=== PATIENT | male | born 1965 | race Caucasian/White ===

== ENCOUNTER 2016-12-27 22:09 | Emergency (ER) | payer SELFPAY ==
[~2016-12-27] VITALS: Ht 167.6 cm; Wt 158.8 kg
[~2016-12-27 22:09] MED LIST: ATEN25TA PO; LEVO175T5 PO; PROVENTIL HFA6.7 GM IH; RANI150T2 PO; SIMV10TA3 PO
[2016-12-27 22:20] VITALS: BP 145/85
[2016-12-27] MEDS ORDERED: traMADol 50 MG TABLET PO ONE (23:30)
[2016-12-27] MEDS ORDERED: IBUPROFEN 600 MG TABLET. PO ONE (23:30)
[2016-12-27] MEDS ORDERED: TRAM-48 PO (23:52)
[2016-12-27] MEDS ORDERED: IBUP-1007 PO (23:52)
--- NOTE | 2016-12-27 23:52 | PHYS DOC ---
Past Medical History Past Medical History: Anxiety, Bronchitis, GERD, High Cholesterol, Hypertension , Hypothyroid, Other Additional Past Medical Histor: Thyroid tumor Past Surgical History: Tonsillectomy, Other Additional Past Surgical Histo: thyroidectomy, left shoulder Alcohol Use: None Drug Use: None Adult General Chief Complaint Chief Complaint: UPPER EXTREMITY INJURY HPI HPI Patient is a 51 year old who presents here today complaining of pain to his right wrist and ankle after tripping over a hole he reports he rolled his ankle. This occurred yesterday. Patient denies any fevers shakes chills nausea vomiting diarrhea. Patient has any head trauma or loss of consciousness. Patient denies any other symptomatology or discomfort. Patient reports that he has been weightbearing. Patient has no history of hypertension or diabetes. Patient's x-ray of his right ankle and wrist were negative for acute fracture. Patient's physical exam was significant for tenderness to palpation to his right ankle as well as his right wrist. There is no deformity noted. Assessment and plan 51-year-old gentleman who has fallen down and injured his ankle and wrist. Patient has no acute fracture noted on x-ray. Patient was discharged home in stable condition. Patient be given ibuprofen to help with his pain. Patient is instructed to follow-up with her primary care physician for further management of this discomfort. Review of Systems Review of Systems Review of symptoms Constitutional: Denies fever or chills [] Eyes: Denies change in visual acuity, redness, or eye pain [] All other review systems are negative except as documented in the history of present illness portion. Physical exam: Constitutional: Well developed, well nourished, no acute distress, non-toxic appearance. [] HENT: Normocephalic, atraumatic, Eyes: conjunctiva normal, no discharge. [] Neck: Normal range of motion, no tenderness, supple, no stridor. [] Cardiovascular:Heart rate regular rhythm, Lungs & Thorax: Bilateral breath sounds clear to auscultation [] Abdomen: Bowel sounds normal, soft, no tenderness, no masses, no pulsatile masses. [] Skin: Warm, dry, Back: No tenderness, Extremities: See above. Neurologic: Alert and oriented X 3, normal motor function, normal sensory function, no focal deficits noted. [] Psychologic: Affect normal, judgement normal, mood normal. [] Current Medications Current Medications Current Medications Medications (Trade) Dose Ordered Sig/Jessy Start Time Stop Time Status Last Admin Dose Admin Ibuprofen (Motrin) 600 mg 1X ONCE 12/27/16 23:30 12/27/16 23:31 DC 12/28/16 00:01 600 MG Tramadol HCl (Ultram) 50 mg 1X ONCE 12/27/16 23:30 12/27/16 23:31 DC 12/28/16 00:01 50 MG Allergies Allergies Allergies Coded Allergies Type Severity Reaction Last Updated Verified meperidine Allergy Severe Shortness of Air 10/12/14 No Current Patient Data Vital Signs Vital Signs Date Time Temp Pulse Resp B/P (MAP) Pulse Ox O2 Delivery O2 Flow Rate FiO2 12/28/16 00:01 18 96 Room Air 12/27/16 22:20 98.4 97 98.4 EKG EKG [] Radiology/Procedures Radiology/Procedures [] Course & Med Decision Making Course & Med Decision Making Pertinent Labs and Imaging studies reviewed. (See chart for details) [] Dragon Disclaimer Dragon Disclaimer This electronic medical record was generated, in whole or in part, using a voice recognition dictation system. Departure Departure Impression: Primary Impression: Fall Additional Impressions: Wrist sprain Shoulder sprain Right ankle sprain Anxiety Disposition: HOME, SELF-CARE Condition: IMPROVED Referrals: NO PCP (PCP) Patient Instructions: Ankle Sprain, Shoulder Pain, Wrist Sprain with Rehab- [facility] Tramadol Hcl (ULTRAM) 50 Mg Tablet 1 TAB PO Q6HRS, #14 TAB Prov: AIDE CROOK MD 12/27/16 Ibuprofen (IBUPROFEN) 600 Mg Tablet 600 MG PO PRN Q6HRS Y for PAIN, #20 TAB Prov: AIDE CROOK MD 12/27/16 Problem Qualifiers Primary Impression: Fall Encounter type: initial encounter Qualified Codes: W19.XXXA - Unspecified fall, initial encounter Additional Impressions: Wrist sprain Encounter type: initial encounter Laterality: right Qualified Codes: S63.501A - Unspecified sprain of right wrist, initial encounter Shoulder sprain Encounter type: initial encounter Shoulder sprain type: unspecified sprain Laterality: right Qualified Codes: S43.401A - Unspecified sprain of right shoulder joint, initial encounter Right ankle sprain Encounter type: initial encounter Involved ligament of ankle: unspecified ligament Qualified Codes: S93.401A - Sprain of unspecified ligament of right ankle, initial encounter AIDE CROOK MD Dec 27, 2016 23:52
--- NOTE | 2016-12-28 08:37 | RAD ---
EXAM: Right wrist 3 views. HISTORY: Fall with right wrist pain. COMPARISON: None. FINDINGS: There is soft tissue swelling along the dorsum of the metacarpals. No fractures are identified. Alignment is maintained. Triscaphe and 1st carpometacarpal osteoarthritis are mild. IMPRESSION: 1. Soft tissue swelling. No fracture. Mild osteoarthritis as above.
--- NOTE | 2016-12-28 08:39 | RAD ---
EXAM: Right ankle 3 views. HISTORY: Right ankle pain. Fall. COMPARISON: None. FINDINGS: Three views of the right ankle are obtained. There is soft tissue swelling medially and laterally. There is mild medial tilt of the talus. No acute fractures are seen. A chronic healed fracture is suspected along the distal tibia. There is nonuniform joint space narrowing at the mortise medially, with moderate osteophytes at the tibiotalar articulation on the lateral projection. There are moderate plantar and posterior calcaneal spurs. Soft tissue swelling is noted medially and laterally. An ossicle at the tip of the lateral malleolus is consistent with a chronic avulsion injury. IMPRESSION: 1. No acute fracture. Soft tissue swelling indicates a soft tissue injury. 2. Moderate tibiotalar osteoarthritis. 3. Mild medial tilt of the talus. Correlate to injury or stability.
--- NOTE | 2016-12-28 08:41 | RAD ---
EXAM: Right shoulder 3 views. HISTORY: Right shoulder pain after injury. COMPARISON: 03/31/2015. FINDINGS: There is a chronic healed fracture of the right distal clavicle. There are no acute fractures. Acromioclavicular osteoarthritis is moderate to severe. Inferiorly directed clavicular spurs measure up to 5 mm. Glenohumeral joint spaces and alignment appear maintained. Prominence of the right peritracheal stripe may represent the azygos vein. This is not clearly changed since the prior chest radiograph. IMPRESSION: 1. No acute fracture. 2. Moderate to severe acromioclavicular osteoarthritis with inferiorly directed spurring. Correlate for impingement.
== END 2016-12-28 00:10 | disposition home or self-care (01) ==
LOC: ER 22:09
DX: S63.501A Unspecified sprain of right wrist, initial encounter (principal); S43.401A Unspecified sprain of right shoulder joint, initial encounter; S93.401A Sprain of unspecified ligament of right ankle, initial encounter; F41.9 Anxiety disorder, unspecified; K21.9 Gastro-esophageal reflux disease without esophagitis; E78.00 Pure hypercholesterolemia, unspecified; I10 Essential (primary) hypertension; E89.0 Postprocedural hypothyroidism; Z88.8 Allergy status to other drugs, medicaments and biological substances; W19.XXXA Unspecified fall, initial encounter; Y93.89 Activity, other specified; Y92.89 Other specified places as the place of occurrence of the external cause; Y99.8 Other external cause status
CPT/HCPCS: 73030; 73110; 73610; 99284

== ENCOUNTER 2018-11-18 01:28 | Observation (INO) | payer SELFPAY ==
[~2018-11-18] VITALS: Ht 167.6 cm; Wt 189.1 kg
[~2018-11-18 01:28] MED LIST changes: +ALBU2.5V8 IH; +IBUP-1007 PO; -PROVENTIL HFA6.7 GM IH; +TRAM-48 PO
[2018-11-18] MEDS ORDERED: ASPIRIN 325 MG TABLET PO ONE (01:45)
[2018-11-18 01:54] LABS: BASO # 0.1 x10^3/uL (0.0-0.2); BASO % 1 % (0-3); EOS # 0.6 x10^3/uL (0.0-0.7); EOS % 7 % (0-3); HEMOGLOBIN 13.9 g/dL (13.0-17.5); LYMPH % 25 % (24-48); MEAN CORPUSCULAR HEMOGLOBIN 28 pg (25-35); MEAN CORPUSCULAR HGB CONC 33 g/dL (31-37); MEAN CORPUSCULAR VOLUME 85 fL (79-100); MONO # 0.5 x10^3/uL (0.0-1.1); MONO % 6 % (0-9); NEUT # 4.9 x10^3uL (1.8-7.7); NEUT % 61 % (31-73); PLATELET COUNT 317 x10^3/uL (140-400); RED BLOOD COUNT 4.94 x10^6/uL (4.30-5.70); RED CELL DISTRIBUTION WIDTH 15.7 % (11.5-14.5); WHITE BLOOD COUNT 7.9 x10^3/uL (4.0-11.0)
[2018-11-18 02:05] LABS: PROTHROMBIN TIME PATIENT 12.2 SEC (11.7-14.0)
[2018-11-18 02:08] LABS: CALCIUM 9.3 mg/dL (8.5-10.1); CREATININE 1.1 mg/dL (0.7-1.3); GFR 70.6; POTASSIUM 3.7 mmol/L (3.5-5.1)
[2018-11-18 02:14] LABS: ALBUMIN 3.3 g/dL (3.4-5.0); ALBUMIN/GLOBULIN RATIO 0.8 (1.0-1.7); TOTAL BILIRUBIN 0.2 mg/dL (0.2-1.0); TOTAL PROTEIN 7.7 g/dL (6.4-8.2)
--- NOTE | 2018-11-18 02:30 | RAD ---
Examination: Right Lower Extremity Venous Doppler Ultrasound History: Right calf pain, redness Comparison: None Procedure: Oro scale, color flow 2D and spectal waveform analysis images are obtained with and without compression in the area of the common femoral vein, superficial femoral vein - femoral vein junction, main femoral vein (superficial femoral vein) and popliteal vein. Veins of the proximal calf are also imaged. Findings: There is normal duplex flow, color flow and compressibility of all visualized vein segments. No evidence of deep venous thrombus is present. A 5.5 cm lymph node identified in the proximal right thigh region. Impression: 1. No evidence of DVT in the right lower extremity. 2. Enlarged right proximal thigh/inguinal lymph node. Electronically signed by: Dani Hayes MD (11/18/2018 2:27 AM) [facility]
[2018-11-18] MEDS ORDERED: IOHEXOL 350 MG/ML 100 ML VIAL. IV ONE (03:00)
[2018-11-18] MEDS ORDERED: CONTRAST GIVEN. MC PRN (03:15)
--- NOTE | 2018-11-18 03:27 | RAD ---
Examination: CT angiography chest HISTORY: History of chest pain, tachycardia COMPARISON: None available technique: Axial CT angiographic images of chest were performed with IV contrast. Coronal and sagittal reformats performed Exposure: One or more of the following individualized dose reduction techniques were utilized for this examination: 1. Automated exposure control 2. Adjustment of the mA and/or kV according to patient size 3. Use of iterative reconstruction technique FINDINGS: The heart size grossly appears unremarkable. Coronary artery calcifications identified. The caliber of the aorta appears unremarkable. There is not enough contrast within the pulmonary artery and its branches for evaluation of pulmonary embolism. Small calcified hilar lymph nodes identified. There is a 9 mm nodule identified in the right upper lobe of the lung abutting the pleura.. Small 1 cm focal opacity identified in the right lower lobe of the lung and a focal opacity identified in the left lingula of the lung measuring 6 mm could be atelectasis or infiltrate and nodules. No evidence of pleural effusion or pneumothorax Examination is very limited due to patient body habitus Decreased attenuation noted throughout the liver likely hepatic steatosis. The visualized spleen, adrenals grossly appears unremarkable Moderate degenerative changes thoracic spine. IMPRESSION: 1. Examination is nondiagnostic for pulmonary embolism as there is not enough contrast within the pulmonary artery and its branches. 2. Coronary artery calcifications. 3. 9 mm nodule identified in the right upper lobe of the lung. A 1 cm opacity identified in the right lower lobe of the lung and a focal opacity identified in the left lingula of the lung measuring 6 mm could be atelectasis or infiltrate or nodules. Follow-up examination is recommended per Fleischner Society guidelines in 3 months. Electronically signed by: Dani Hayes MD (11/18/2018 3:24 AM) [place] [id number]
[2018-11-18] MEDS ORDERED: ADENOSINE 6 MG/2 ML VIAL. IV ONE (03:30)
[2018-11-18] MEDS ORDERED: fentaNYL PF VIAL 100 MCG/2 ML VIAL IV PRN ×2 (04:15→04:30)
[2018-11-18] MEDS ORDERED: ONDANSETRON PF 4 MG/2 ML VIAL. IV PRN (04:15)
--- NOTE | 2018-11-18 04:15 | PHYS DOC ---
Past Medical History Past Medical History: Anxiety, Bronchitis, GERD, High Cholesterol, Hypertension, Hypothyroid, Other Additional Past Medical Histor: Thyroid tumor Past Surgical History: Tonsillectomy, Other Additional Past Surgical Histo: thyroidectomy, left shoulder Alcohol Use: None Drug Use: None Adult General Chief Complaint Chief Complaint: RAPID HEART RATE HPI HPI Patient is a 53 year old [f__sex] who presents with [] Review of Systems Review of Systems Constitutional: Denies fever or chills [] Eyes: Denies change in visual acuity, redness, or eye pain [] HENT: Denies nasal congestion or sore throat [] Respiratory: Denies cough or shortness of breath [] Cardiovascular: No additional information not addressed in HPI [] GI: Denies abdominal pain, nausea, vomiting, bloody stools or diarrhea [] : Denies dysuria or hematuria [] Musculoskeletal: Denies back pain or joint pain [] Integument: Denies rash or skin lesions [] Neurologic: Denies headache, focal weakness or sensory changes [] Endocrine: Denies polyuria or polydipsia [] All other systems were reviewed and found to be within normal limits, except as documented in this note. Current Medications Current Medications Current Medications Medications (Trade) Dose Ordered Sig/Jessy Start Time Stop Time Status Last Admin Dose Admin Adenosine (Adenocard) 6 mg 1X ONCE 11/18/18 03:30 11/18/18 03:31 DC 11/18/18 03:41 6 MG Aspirin (Michele Aspirin) 325 mg 1X ONCE 11/18/18 01:45 11/18/18 01:46 DC 11/18/18 02:16 325 MG Info (CONTRAST GIVEN -- Rx MONITORING) 1 each PRN DAILY PRN 11/18/18 03:15 11/20/18 03:14 Iohexol (Omnipaque 350 Mg/ml) 100 ml 1X ONCE 11/18/18 03:00 11/18/18 03:13 DC 11/18/18 03:09 100 ML Lorazepam (Ativan) 0.5 mg 1X ONCE 11/18/18 02:45 11/18/18 02:46 DC 11/18/18 02:41 0.5 MG Allergies Allergies Allergies Coded Allergies Type Severity Reaction Last Updated Verified meperidine Allergy Severe Shortness of Air 10/12/14 No Physical Exam Physical Exam Constitutional: Well developed, well nourished, no acute distress, non-toxic appearance. [] HENT: Normocephalic, atraumatic, bilateral external ears normal, oropharynx moist, no oral exudates, nose normal. [] Eyes: PERRLA, EOMI, conjunctiva normal, no discharge. [] Neck: Normal range of motion, no tenderness, supple, no stridor. [] Cardiovascular:Heart rate regular rhythm, no murmur [] Lungs & Thorax: Bilateral breath sounds clear to auscultation [] Abdomen: Bowel sounds normal, soft, no tenderness, no masses, no pulsatile masses. [] Skin: Warm, dry, no erythema, no rash. [] Back: No tenderness, no CVA tenderness. [] Extremities: No tenderness, no cyanosis, no clubbing, ROM intact, no edema. [] Neurologic: Alert and oriented X 3, normal motor function, normal sensory function, no focal deficits noted. [] Psychologic: Affect normal, judgement normal, mood normal. [] Current Patient Data Vital Signs Vital Signs Date Time Temp Pulse Resp B/P (MAP) Pulse Ox O2 Delivery O2 Flow Rate FiO2 11/18/18 03:34 152 24 158/73 (101) 95 Room Air 11/18/18 01:35 98.6 98.6 Lab Values Laboratory Tests Test 11/18/18 01:38 11/18/18 01:52 White Blood Count 7.9 x10^3/uL (4.0-11.0) Red Blood Count 4.94 x10^6/uL (4.30-5.70) Hemoglobin 13.9 g/dL (13.0-17.5) Hematocrit 42.0 % (39.0-53.0) Mean Corpuscular Volume 85 fL (79-100) Mean Corpuscular Hemoglobin 28 pg (25-35) Mean Corpuscular Hemoglobin Concent 33 g/dL (31-37) Red Cell Distribution Width 15.7 % (11.5-14.5) H Platelet Count 317 x10^3/uL (140-400) Neutrophils (%) (Auto) 61 % (31-73) Lymphocytes (%) (Auto) 25 % (24-48) Monocytes (%) (Auto) 6 % (0-9) Eosinophils (%) (Auto) 7 % (0-3) H Basophils (%) (Auto) 1 % (0-3) Neutrophils # (Auto) 4.9 x10^3uL (1.8-7.7) Lymphocytes # (Auto) 2.0 x10^3/uL (1.0-4.8) Monocytes # (Auto) 0.5 x10^3/uL (0.0-1.1) Eosinophils # (Auto) 0.6 x10^3/uL (0.0-0.7) Basophils # (Auto) 0.1 x10^3/uL (0.0-0.2) Prothrombin Time 12.2 SEC (11.7-14.0) Prothrombin Time INR 0.9 (0.8-1.1) Sodium Level 138 mmol/L (136-145) Potassium Level 3.7 mmol/L (3.5-5.1) Chloride Level 101 mmol/L (98-107) Carbon Dioxide Level 32 mmol/L (21-32) Anion Gap 5 (6-14) L Blood Urea Nitrogen 10 mg/dL (8-26) Creatinine 1.1 mg/dL (0.7-1.3) Estimated GFR (Cockcroft-Gault) 70.6 BUN/Creatinine Ratio 9 (6-20) Glucose Level 151 mg/dL (70-99) H Calcium Level 9.3 mg/dL (8.5-10.1) Magnesium Level 2.0 mg/dL (1.8-2.4) Total Bilirubin 0.2 mg/dL (0.2-1.0) Aspartate Amino Transferase (AST) 23 U/L (15-37) Alanine Aminotransferase (ALT) 36 U/L (16-63) Alkaline Phosphatase 80 U/L (46-116) Creatine Kinase 163 U/L (39-308) Creatine Kinase MB (Mass) 1.6 ng/mL (0.0-3.6) Creatine Kinase MB Relative Index 1.0 % (0-4) Troponin I Quantitative < 0.017 ng/mL (0.000-0.055) SW-Ugv-I-Type Natriuretic Peptide 120 pg/mL (0-124) Total Protein 7.7 g/dL (6.4-8.2) Albumin 3.3 g/dL (3.4-5.0) L Albumin/Globulin Ratio 0.8 (1.0-1.7) L Lipase 197 U/L (73-393) Lactic Acid Level 1.9 mmol/L (0.4-2.0) Laboratory Tests 11/18/18 01:38 Laboratory Tests 11/18/18 01:38 EKG EKG @0136 SVT at 153bpm NO ST elevation, compared to prior EKG from 03/31/15 which noted sinus tachycardia at 106bpm, Otherwise without acute change. @0348 Continuos monitoring after administration of 6mg of Adenosine which noted SVT with subsequent pause and reset to sinus tachycardia, NO ST elevation @ 0348 Sinus tachycardia at 114bpm, NO ST elevation, Q wave in III Radiology/Procedures Radiology/Procedures PROCEDURE: VENOUS LOWER EXTREMITY RIGHT Examination: Right Lower Extremity Venous Doppler Ultrasound History: Right calf pain, redness Comparison: None Procedure: Oro scale, color flow 2D and spectal waveform analysis images are obtained with and without compression in the area of the common femoral vein, superficial femoral vein - femoral vein junction, main femoral vein (superficial femoral vein) and popliteal vein. Veins of the proximal calf are also imaged. Findings: There is normal duplex flow, color flow and compressibility of all visualized vein segments. No evidence of deep venous thrombus is present. A 5.5 cm lymph node identified in the proximal right thigh region. Impression: 1. No evidence of DVT in the right lower extremity. 2. Enlarged right proximal thigh/inguinal lymph node. Electronically signed by: Dani Hayes MD (11/18/2018 2:27 AM) [facility] PROCEDURE: CT ANGIOGRAPHY CHEST Examination: CT angiography chest HISTORY: History of chest pain, tachycardia COMPARISON: None available technique: Axial CT angiographic images of chest were performed with IV contrast. Coronal and sagittal reformats performed Exposure: One or more of the following individualized dose reduction techniques were utilized for this examination: 1. Automated exposure control 2. Adjustment of the mA and/or kV according to patient size 3. Use of iterative reconstruction technique FINDINGS: The heart size grossly appears unremarkable. Coronary artery calcifications identified. The caliber of the aorta appears unremarkable. There is not enough contrast within the pulmonary artery and its branches for evaluation of pulmonary embolism. Small calcified hilar lymph nodes identified. There is a 9 mm nodule identified in the right upper lobe of the lung abutting the pleura.. Small 1 cm focal opacity identified in the right lower lobe of the lung and a focal opacity identified in the left lingula of the lung measuring 6 mm could be atelectasis or infiltrate and nodules. No evidence of pleural effusion or pneumothorax Examination is very limited due to patient body habitus Decreased attenuation noted throughout the liver likely hepatic steatosis. The visualized spleen, adrenals grossly appears unremarkable Moderate degenerative changes thoracic spine. IMPRESSION: 1. Examination is nondiagnostic for pulmonary embolism as there is not enough contrast within the pulmonary artery and its branches. 2. Coronary artery calcifications. 3. 9 mm nodule identified in the right upper lobe of the lung. A 1 cm opacity identified in the right lower lobe of the lung and a focal opacity identified in the left lingula of the lung measuring 6 mm could be atelectasis or infiltrate or nodules. Follow-up examination is recommended per Fleischner Society guidelines in 3 months. Electronically signed by: Dani Hayes MD (11/18/2018 3:24 AM) [facility] Course & Med Decision Making Course & Med Decision Making Pertinent Labs and Imaging studies reviewed. (See chart for details) [] Dragon Disclaimer Dragon Disclaimer This electronic medical record was generated, in whole or in part, using a voice recognition dictation system. Departure Departure Impression: Primary Impression: Chest pain Additional Impressions: SVT (supraventricular tachycardia) Pulmonary nodule Disposition: ADMITTED INPATIENT Admitting Physician: Jay Ferreira Condition: GUARDED Referrals: NO PCP (PCP) Critical Care Time Critical care time was 30 minutes which includes time at bedside, spent in discussion of patient's care with specialists and/or family members, with interpretation of laboratory and/or radiological studies and is exclusive of procedures. Problem Qualifiers Primary Impression: Chest pain Chest pain type: unspecified Qualified Codes: R07.9 - Chest pain, unspecified JUAN DANIEL CARTER DO November 18, 2018 04:15
[2018-11-18 04:55] VITALS: BP 132/97
[2018-11-18 05:03] LABS: FREE T4 0.79 ng/dL (0.76-1.46); THYROID STIM HORMONE (TSH) 9.032 uIU/mL (0.358-3.74)
[2018-11-18] MEDS ORDERED: SIMV20TA3 PO (05:37)
[2018-11-18] MEDS ORDERED: LEVO75TA5 PO (05:37)
[2018-11-18] MEDS ORDERED: FURO20TA3 PO (05:37)
--- NOTE | 2018-11-18 06:55 | EKG ---
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
--- NOTE | 2018-11-18 06:59 | EKG ---
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
--- NOTE | 2018-11-18 07:14 | NUR ---
Patient arrived to floor around 0437. VS stable, Assessment complete. patient resting comfortably on RA, no complaints of pain. Orientated pt to unit. Bed in low, locked position, call light with in reach.
[2018-11-18 07:39] VITALS: BP 137/72
[2018-11-18] MEDS ORDERED: PERFLUTREN PROTEIN-A MICROSPHR 0.22 MG/ML 3 ML VIAL. IV ONE (09:18)
--- NOTE | 2018-11-18 10:08 | PDOC2 ---
CARDIAC CONSULT DATE OF CONSULT Date of Consult DATE: 11/18/18 TIME: 10:04 REASON FOR CONSULT Reason for Consult: Chest pain, SVT REFERRING PHYSICIAN Referring Physician: Ish SOURCE Source: Chart review, Patient HISTORY OF PRESENT ILLNESS HISTORY OF PRESENT ILLNESS This is a pleasant 53 yo male admitted for complains of fast HR. Reports that he was sleeping last night when his fast HR woke him up. He was not diaphoretic but was feeling nauseated, has some wheeze and mild SOA. Denies any chest pain. Reports no past hx of arrhythmias or CAD. He just lost his health insurance, works at [employer] and could not stand long enough to work due to back pain and trying to apply for disability. He has DM, HTN, HLP. There was a suspicion for BENTON but he has never been tested accdg to him. Denies any frequent dizzness or passing out and as far as this arrhythmia this is the first time he has felt this palpitations. He has been taking his medications regularly for the latter. PAST MEDICAL HISTORY Cardiovascular: HTN, Hyperlipidemia Pulmonary: Asthma, Other (BENTON) CENTRAL NERVOUS SYSTEM: Other (No pertinent history) GI: GERD, Other (hiatal hernia) Heme/Onc: No pertinent hx Hepatobiliary: No pertinent hx, Cholelithiasis Psych: Anxiety Musculoskeletal: Osteoarthritis, Other (morbid obesity) Rheumatologic: No pertinent hx Infectious disease: No pertinent hx ENT: No pertinent hx Renal/: Prostate Ca., Urinary Incontinence Endocrine: Diabetes (2), Hypothyroidism Dermatology: Other (venous dermatitis) PAST SURGICAL HISTORY Past Surgical History: Arthroscopy (left shoulder), Cholecystectomy, Tonsillectomy, Other (thyroidectomy) FAMILY HISTORY Family History noncontributory to CV SOCIAL HISTORY Smoke: Quit (18 yrs ago) ALCOHOL: none Drugs: None Lives: Alone CURRENT MEDICATIONS CURRENT MEDICATIONS Current Medications Medications (Trade) Dose Ordered Sig/Jessy Route PRN Reason Start Time Stop Time Status Last Admin Dose Admin Aspirin (Michele Aspirin) 325 mg 1X ONCE PO 11/18/18 01:45 11/18/18 01:46 DC 11/18/18 02:16 Lorazepam (Ativan) 0.5 mg 1X ONCE IV 11/18/18 02:45 11/18/18 02:46 DC 11/18/18 02:41 Iohexol (Omnipaque 350 Mg/ml) 100 ml 1X ONCE IV 11/18/18 03:00 11/18/18 03:13 DC 11/18/18 03:09 Adenosine (Adenocard) 6 mg 1X ONCE IV 11/18/18 03:30 11/18/18 03:31 DC 11/18/18 03:41 ALLERGIES ALLERGIES: Coded Allergies: meperidine (Unverified Allergy, Severe, Shortness of Air, 10/12/14) ROS Review of System 14 point ROS evaluated with pertinent positives noted per HPI PHYSICAL EXAM General: Alert, Oriented X3, Cooperative, No acute distress HEENT: Atraumatic, Mucous membr. moist/pink Lungs: Clear to auscultation, Other (faint upper expiratory wheeze) Heart: Regular rate (SR), Normal S1, Normal S2, Other (2/6 systolic murmur to KARTHIK border) Abdomen: Soft, No tenderness, Other (obese) Extremities: No cyanosis, Other (1+ bilateral LE pitting edema) Skin: Other (generalized scratches to bilateral calf, venous insufficiency) Neuro: Normal speech, Sensation intact Psych/Mental Status: Mental status NL, Mood NL MUSCULOSKELETAL: Osteoarthritic changes both hands VITALS VITALS Vital Signs Date Time Temp Pulse Resp B/P (MAP) Pulse Ox O2 Delivery O2 Flow Rate FiO2 11/18/18 08:00 Room Air 11/18/18 07:39 97.5 89 18 137/72 (93) 94 97.5 LABS Lab: Laboratory Tests Test 11/18/18 01:38 11/18/18 01:52 11/18/18 07:15 White Blood Count 7.9 x10^3/uL (4.0-11.0) Red Blood Count 4.94 x10^6/uL (4.30-5.70) Hemoglobin 13.9 g/dL (13.0-17.5) Hematocrit 42.0 % (39.0-53.0) Mean Corpuscular Volume 85 fL (79-100) Mean Corpuscular Hemoglobin 28 pg (25-35) Mean Corpuscular Hemoglobin Concent 33 g/dL (31-37) Red Cell Distribution Width 15.7 % (11.5-14.5) Platelet Count 317 x10^3/uL (140-400) Neutrophils (%) (Auto) 61 % (31-73) Lymphocytes (%) (Auto) 25 % (24-48) Monocytes (%) (Auto) 6 % (0-9) Eosinophils (%) (Auto) 7 % (0-3) Basophils (%) (Auto) 1 % (0-3) Neutrophils # (Auto) 4.9 x10^3uL (1.8-7.7) Lymphocytes # (Auto) 2.0 x10^3/uL (1.0-4.8) Monocytes # (Auto) 0.5 x10^3/uL (0.0-1.1) Eosinophils # (Auto) 0.6 x10^3/uL (0.0-0.7) Basophils # (Auto) 0.1 x10^3/uL (0.0-0.2) Prothrombin Time 12.2 SEC (11.7-14.0) Prothromb Time International Ratio 0.9 (0.8-1.1) Sodium Level 138 mmol/L (136-145) Potassium Level 3.7 mmol/L (3.5-5.1) Chloride Level 101 mmol/L (98-107) Carbon Dioxide Level 32 mmol/L (21-32) Anion Gap 5 (6-14) Blood Urea Nitrogen 10 mg/dL (8-26) Creatinine 1.1 mg/dL (0.7-1.3) Estimated GFR (Cockcroft-Gault) 70.6 BUN/Creatinine Ratio 9 (6-20) Glucose Level 151 mg/dL (70-99) Calcium Level 9.3 mg/dL (8.5-10.1) Magnesium Level 2.0 mg/dL (1.8-2.4) Total Bilirubin 0.2 mg/dL (0.2-1.0) Aspartate Amino Transf (AST/SGOT) 23 U/L (15-37) Alanine Aminotransferase (ALT/SGPT) 36 U/L (16-63) Alkaline Phosphatase 80 U/L (46-116) Creatine Kinase 163 U/L (39-308) Creatine Kinase MB (Mass) 1.6 ng/mL (0.0-3.6) Creatine Kinase MB Relative Index 1.0 % (0-4) Troponin I Quantitative < 0.017 ng/mL (0.000-0.055) 0.163 ng/mL (0.000-0.055) FY-Cvy-N-Type Natriuretic Peptide 120 pg/mL (0-124) Total Protein 7.7 g/dL (6.4-8.2) Albumin 3.3 g/dL (3.4-5.0) Albumin/Globulin Ratio 0.8 (1.0-1.7) Lipase 197 U/L (73-393) Thyroid Stimulating Hormone (TSH) 9.032 uIU/mL (0.358-3.74) Free Thyroxine 0.79 ng/dL (0.76-1.46) Free Triiodothyronine (T3) pg/mL 2.52 pg/mL (2.18-3.98) Lactic Acid Level 1.9 mmol/L (0.4-2.0) ASSESSMENT/PLAN ASSESSMENT/PLAN 1. PSVT: responded to adenosine, suspect BENTON as the primary trigger 2. Elevated troponin: 0.163, suspect demand mediated type 2 from SVT. CP free 3. Morbid obesity with highly suspected BENTON 4. HTN 5. DM2: takes metformin at home 6. HLP: on home statin Acquired hypothyroidism: TSH not on goal Recommendations 1. TTE, TSH, A1C 2. Social service in regards to disability 3. MCOT would be ideal but would not be able to afford due to fiancial constraints. 4. Consider for outpt stress test. Start on ECASA 81 mg for primary prevention 5. Discussed with staff, teach vagal maneuver 6. Will place on low dose metoprolol. 7. Will need BENTON outpt w/u 8. Wt loss, diet modification MARGARITA RODRIGUEZ APRN November 18, 2018 10:08
[2018-11-18 10:21] VITALS: BP 159/79
--- NOTE | 2018-11-18 10:23 | CARD ---
MR#: [id number] Date of Study: 11/18/2018 Ordering Physician: MARGARITA RODRIGUEZ, Referring Physician: SHEEBA BROWNE Tech: Mima Barton RDCS APPROVED REPORT EXAM: Two-dimensional and M-mode echocardiogram with Doppler and color Doppler. Other Information Quality : Technically Limited Technically limited study due to morbid obesity INDICATION SVT Echo Enhancing Agent Agent/Amount Used: Optison 3mL 2D DIMENSIONS RVDd3.5 (2.9-3.5cm)Left Atrium(2D)4.7 (1.6-4.0cm) IVSd1.2 (0.7-1.1cm)Aortic Root(2D)3.2 (2.0-3.7cm) LVDd5.7 (3.9-5.9cm)LVOT Diameter2.6 (1.8-2.4cm) PWd1.3 (0.7-1.1cm)LVDs3.7 (2.5-4.0cm) FS (%) 35.0 %SV101.3 ml LVEF(%)63.6 (>50%) Aortic Valve AoV Peak Mike.142.2cm/sAoV VTI22.8cm AO Peak GR.8.1mmHgLVOT VTI 22.96cm AO Mean GR.4mmHg Mitral Valve MV E Kzcjyini09.8cm/sMV DECEL SUHX648yh MV A Hmwwzenk48.4cm/sE/A Ratio1.2 LEFT VENTRICLE The left ventricle is normal size. There is mild concentric left ventricular hypertrophy. The left ve ntricular systolic function is normal. The Ejection Fraction is 55-60%. There is normal LV segmental wall motion. RIGHT VENTRICLE The right ventricle is normal size. The right ventricular systolic function is normal. ATRIA The left atrium is mildly dilated. The right atrium size is normal. The interatrial septum is intact with no evidence for an atrial septal defect or patent foramen ovale as noted on 2-D or Doppler imagi ng. AORTIC VALVE The aortic valve is calcified but opens well. Doppler and Color Flow revealed no significant aortic r egurgitation. There is no significant aortic valvular stenosis. MITRAL VALVE The mitral valve is normal in structure and function. There is no evidence of mitral valve prolapse. There is no mitral valve stenosis. Doppler and Color Flow revealed no mitral valve regurgitation note d. TRICUSPID VALVE The tricuspid valve is normal in structure and function. Doppler and Color Flow revealed no tricuspid valve regurgitation noted. There is no tricuspid valve stenosis. PULMONIC VALVE The pulmonic valve is not well visualized. Doppler and Color Flow revealed no pulmonic valvular regur gitation. There is no pulmonic valvular stenosis. GREAT VESSELS The aortic root is normal in size. The ascending aorta is not well seen. The IVC was not visualized. PERICARDIAL EFFUSION There is no evidence of significant pericardial effusion. Critical Notification Critical Value: No <Conclusion> Technically very difficult study. Optison echo contrast used. The left ventricular systolic function is normal. The Ejection Fraction is 55-60%. There is normal LV segmental wall motion. Valves poorly visualized. No obvious stenosis noted. There is no evidence of significant pericardial effusion. Signed by : Akhil Bryant, Electronically Approved : 11/18/2018 10:23:00
--- NOTE | 2018-11-18 12:07 | NUR ---
SS following for discharge planning. SS reviewed pt chart. Pt is a self pay pt. HCFS following for self pay status. Pt is from home and is currently on room air. No discharge needs noted at this time. SS will continue to follow for discharge planning.
--- NOTE | 2018-11-18 13:08 | PDOC1 ---
History and Physical Date of Admission: Date of Admission DATE: 11/18/18 TIME: 13:02 Chief Complaint: Problems: (1) Medication refill (2) Anxiety (3) Pulmonary nodule (4) SVT (supraventricular tachycardia) (5) Chest pain Chief Complain: Chest pain palpitations shortness of breath and wheezing History of Present Illness: HPI: Patient is a pleasant middle-aged white male who developed chest pain with associated shortness breath palpitations and wheezing when he got to the ER his initial troponin was 0 is now bumped up to 0.16. She also had an arrhythmia with SVT Rates his symptoms at 10 out of 10 Has associated anxiety It has been occurring off and on for some time but got really bad in the last day or so. Describes as agonizing Worse with moving He tried taking some home as per that and work I discussed case with ER physician were admit the patient consult cardiology Past Medical/Surgical History: PMH/PSH: Diabetes hypertension hyperlipidemia obesity Allergies: Allergies: Coded Allergies: meperidine (Unverified Allergy, Severe, Shortness of Air, 10/12/14) Family History: Family History: He denies family history of coronary disease Social History: Social Hisoty: He works at [employer] Does not drink smoke or take drugs (he quit smoking 14 years ago) Current Medications: Current Medications Current Medications Aspirin (Michele Aspirin) 325 mg 1X ONCE PO Last administered on 11/18/18at 02:16; Start 11/18/18 at 01:45; Stop 11/18/18 at 01:46; Status DC Lorazepam (Ativan) 0.5 mg 1X ONCE IV Last administered on 11/18/18at 02:41; Start 11/18/18 at 02:45; Stop 11/18/18 at 02:46; Status DC Iohexol (Omnipaque 350 Mg/ml) 100 ml 1X ONCE IV Last administered on 11/18/18at 03:09; Start 11/18/18 at 03:00; Stop 11/18/18 at 03:13; Status DC Info (CONTRAST GIVEN -- Rx MONITORING) 1 each PRN DAILY PRN MC SEE COMMENTS; Start 11/18/18 at 03:15; Stop 11/20/18 at 03:14 Adenosine (Adenocard) 6 mg 1X ONCE IV Last administered on 11/18/18at 03:41; Start 11/18/18 at 03:30; Stop 11/18/18 at 03:31; Status DC Ondansetron HCl (Zofran) 4 mg PRN Q8HRS PRN IV NAUSEA/VOMITING; Start 11/18/18 at 04:15; Stop 11/19/18 at 04:14 Fentanyl Citrate (Fentanyl 2ml Vial) 50 mcg PRN Q2HR PRN IV PAIN; Start 11/18/18 at 04:15; Status UNV Fentanyl Citrate (Fentanyl 2ml Vial) 50 mcg PRN Q2HR PRN IV PAIN; Start 11/18/18 at 04:30 Perflutren Protein Type A Microsphe (Optison) 0.66 mg STK-MED ONCE IV ; Start 11/18/18 at 09:18; Stop 11/18/18 at 09:19; Status DC Metoprolol Tartrate (Lopressor) 12.5 mg BID PO ; Start 11/18/18 at 21:00 Aspirin (Ecotrin) 81 mg DAILYWBKFT PO ; Start 11/19/18 at 08:00 Active Scripts Active Reported Simvastatin 20 Mg Tablet 20 Mg PO HS Levothyroxine Sodium 75 Mcg Tablet 75 Mcg PO DAILY Furosemide 20 Mg Tablet 40 Mg PO DAILY Ranitidine Hcl 150 Mg Tablet 1 Tab PO BID Proventil Hfa Inhaler (Albuterol Sulfate) 6.7 Gm Hfa.aer.ad 2 Puff IH QID ROS: Review of Systems Review of System REVIEW OF SYSTEMS: GENERAL: Denies weakness SKIN: No bruising, hair changes or rashes. EYES: No blurred, double or loss of vision. NOSE AND THROAT: No history of nosebleeds, hoarseness or sore throat. HEART: He complains of chest pain and palpitations LUNGS: Denies cough, hemoptysis, wheezing or shortness of breath. GASTROINTESTINAL: Denies changes in appetite, nausea, vomiting, diarrhea or constipation. GENITOURINARY: No history of frequency, urgency, hesitancy or nocturia. NEUROLOGIC: Denies history of numbness, tingling, tremor or weakness. PSYCHIATRIC: No history of panic, anxiety or depression. ENDOCRINE: No history of heat or cold intolerance, polyuria or polydipsia. EXTREMITIES: Denies muscle weakness, joint pain, pain on walking or stiffness. Physical Exam: Vital Signs: Vital Signs Date Time Temp Pulse Resp B/P (MAP) Pulse Ox O2 Delivery O2 Flow Rate FiO2 11/18/18 10:21 98.1 87 18 159/79 (105) 95 Room Air 98.1 Physcial Exam: GEN.: He is anxious HEENT: Head is normocephalic, atraumatic NECK: Supple, no JVD LUNGS: Clear to auscultation without rhonchi or wheezing HEART: RRR, S1, S2 present. Peripheral pulses intact ABDOMEN: Obese positive bowel sounds EXTREMITIES: Without any cyanosis, clubbing, or edema. Pedal pulses intact NEUROLOGIC: Normal speech, normal tone. A&O x 3 PSYCHIATRIC: Normal affect, normal mood. Stable SKIN: Lower extremities have chronic venous stasis changes VASCULAR: Good capillary refill Labs: Labs: Laboratory Tests Test 11/18/18 01:38 11/18/18 01:52 11/18/18 07:15 11/18/18 10:13 White Blood Count 7.9 x10^3/uL (4.0-11.0) Red Blood Count 4.94 x10^6/uL (4.30-5.70) Hemoglobin 13.9 g/dL (13.0-17.5) Hematocrit 42.0 % (39.0-53.0) Mean Corpuscular Volume 85 fL (79-100) Mean Corpuscular Hemoglobin 28 pg (25-35) Mean Corpuscular Hemoglobin Concent 33 g/dL (31-37) Red Cell Distribution Width 15.7 % (11.5-14.5) Platelet Count 317 x10^3/uL (140-400) Neutrophils (%) (Auto) 61 % (31-73) Lymphocytes (%) (Auto) 25 % (24-48) Monocytes (%) (Auto) 6 % (0-9) Eosinophils (%) (Auto) 7 % (0-3) Basophils (%) (Auto) 1 % (0-3) Neutrophils # (Auto) 4.9 x10^3uL (1.8-7.7) Lymphocytes # (Auto) 2.0 x10^3/uL (1.0-4.8) Monocytes # (Auto) 0.5 x10^3/uL (0.0-1.1) Eosinophils # (Auto) 0.6 x10^3/uL (0.0-0.7) Basophils # (Auto) 0.1 x10^3/uL (0.0-0.2) Prothrombin Time 12.2 SEC (11.7-14.0) Prothromb Time International Ratio 0.9 (0.8-1.1) Sodium Level 138 mmol/L (136-145) Potassium Level 3.7 mmol/L (3.5-5.1) Chloride Level 101 mmol/L (98-107) Carbon Dioxide Level 32 mmol/L (21-32) Anion Gap 5 (6-14) Blood Urea Nitrogen 10 mg/dL (8-26) Creatinine 1.1 mg/dL (0.7-1.3) Estimated GFR (Cockcroft-Gault) 70.6 BUN/Creatinine Ratio 9 (6-20) Glucose Level 151 mg/dL (70-99) Calcium Level 9.3 mg/dL (8.5-10.1) Magnesium Level 2.0 mg/dL (1.8-2.4) Total Bilirubin 0.2 mg/dL (0.2-1.0) Aspartate Amino Transf (AST/SGOT) 23 U/L (15-37) Alanine Aminotransferase (ALT/SGPT) 36 U/L (16-63) Alkaline Phosphatase 80 U/L (46-116) Creatine Kinase 163 U/L (39-308) Creatine Kinase MB (Mass) 1.6 ng/mL (0.0-3.6) Creatine Kinase MB Relative Index 1.0 % (0-4) Troponin I Quantitative < 0.017 ng/mL (0.000-0.055) 0.163 ng/mL (0.000-0.055) 0.141 ng/mL (0.000-0.055) BF-Mgx-O-Type Natriuretic Peptide 120 pg/mL (0-124) Total Protein 7.7 g/dL (6.4-8.2) Albumin 3.3 g/dL (3.4-5.0) Albumin/Globulin Ratio 0.8 (1.0-1.7) Lipase 197 U/L (73-393) Thyroid Stimulating Hormone (TSH) 9.032 uIU/mL (0.358-3.74) Free Thyroxine 0.79 ng/dL (0.76-1.46) Free Triiodothyronine (T3) pg/mL 2.52 pg/mL (2.18-3.98) Lactic Acid Level 1.9 mmol/L (0.4-2.0) Laboratory Tests Test 11/18/18 01:38 11/18/18 01:52 11/18/18 07:15 11/18/18 10:13 White Blood Count 7.9 x10^3/uL (4.0-11.0) Red Blood Count 4.94 x10^6/uL (4.30-5.70) Hemoglobin 13.9 g/dL (13.0-17.5) Hematocrit 42.0 % (39.0-53.0) Mean Corpuscular Volume 85 fL (79-100) Mean Corpuscular Hemoglobin 28 pg (25-35) Mean Corpuscular Hemoglobin Concent 33 g/dL (31-37) Red Cell Distribution Width 15.7 % (11.5-14.5) Platelet Count 317 x10^3/uL (140-400) Neutrophils (%) (Auto) 61 % (31-73) Lymphocytes (%) (Auto) 25 % (24-48) Monocytes (%) (Auto) 6 % (0-9) Eosinophils (%) (Auto) 7 % (0-3) Basophils (%) (Auto) 1 % (0-3) Neutrophils # (Auto) 4.9 x10^3uL (1.8-7.7) Lymphocytes # (Auto) 2.0 x10^3/uL (1.0-4.8) Monocytes # (Auto) 0.5 x10^3/uL (0.0-1.1) Eosinophils # (Auto) 0.6 x10^3/uL (0.0-0.7) Basophils # (Auto) 0.1 x10^3/uL (0.0-0.2) Prothrombin Time 12.2 SEC (11.7-14.0) Prothromb Time International Ratio 0.9 (0.8-1.1) Sodium Level 138 mmol/L (136-145) Potassium Level 3.7 mmol/L (3.5-5.1) Chloride Level 101 mmol/L (98-107) Carbon Dioxide Level 32 mmol/L (21-32) Anion Gap 5 (6-14) Blood Urea Nitrogen 10 mg/dL (8-26) Creatinine 1.1 mg/dL (0.7-1.3) Estimated GFR (Cockcroft-Gault) 70.6 BUN/Creatinine Ratio 9 (6-20) Glucose Level 151 mg/dL (70-99) Calcium Level 9.3 mg/dL (8.5-10.1) Magnesium Level 2.0 mg/dL (1.8-2.4) Total Bilirubin 0.2 mg/dL (0.2-1.0) Aspartate Amino Transf (AST/SGOT) 23 U/L (15-37) Alanine Aminotransferase (ALT/SGPT) 36 U/L (16-63) Alkaline Phosphatase 80 U/L (46-116) Creatine Kinase 163 U/L (39-308) Creatine Kinase MB (Mass) 1.6 ng/mL (0.0-3.6) Creatine Kinase MB Relative Index 1.0 % (0-4) Troponin I Quantitative < 0.017 ng/mL (0.000-0.055) 0.163 ng/mL (0.000-0.055) 0.141 ng/mL (0.000-0.055) UF-Fbt-L-Type Natriuretic Peptide 120 pg/mL (0-124) Total Protein 7.7 g/dL (6.4-8.2) Albumin 3.3 g/dL (3.4-5.0) Albumin/Globulin Ratio 0.8 (1.0-1.7) Lipase 197 U/L (73-393) Thyroid Stimulating Hormone (TSH) 9.032 uIU/mL (0.358-3.74) Free Thyroxine 0.79 ng/dL (0.76-1.46) Free Triiodothyronine (T3) pg/mL 2.52 pg/mL (2.18-3.98) Lactic Acid Level 1.9 mmol/L (0.4-2.0) Images: Images IMPRESSION: 1. Examination is nondiagnostic for pulmonary embolism as there is not enough contrast within the pulmonary artery and its branches. 2. Coronary artery calcifications. 3. 9 mm nodule identified in the right upper lobe of the lung. A 1 cm opacity identified in the right lower lobe of the lung and a focal opacity identified in the left lingula of the lung measuring 6 mm could be atelectasis or infiltrate or nodules. Follow-up examination is recommended per Fleischner Society guidelines in 3 months. Assessment/Plan Assessment/Plan Chest pain rated troponin SVT obesity remote history of smoking Plan Serial cardiac enzymes Consult cardiology Cardiac monitoring Serial EKGs Full code DVT prophylaxis Consult pulmonary for abnormal chest x-ray Home meds PT OT Frequent labs Prognosis guarded FÉLIX SHAIKH III DO November 18, 2018 13:08
[2018-11-18] MEDS ORDERED: HYDR25TA PO (13:40)
[2018-11-18 14:12] VITALS: BP 148/81
[2018-11-18] MEDS ORDERED: PERFLUTREN PROTEIN-A MICROSPHR 0.22 MG/ML 3 ML VIAL. IV PRN (14:15)
[2018-11-18 18:14] VITALS: BP 138/82
[2018-11-18] MEDS ORDERED: SIMVASTATIN 20 MG TABLET PO SCH (21:00)
[2018-11-18] MEDS ORDERED: hydrOXYzine PAMOATE 25 MG CAPSULE PO PRN (21:00)
[2018-11-18] MEDS ORDERED: FUROSEMIDE 20 MG TABLET PO PRN (21:00)
[2018-11-18] MEDS ORDERED: ALBUTEROL SULFATE 2.5 MG/3 ML NEBU. INH PRN (21:00)
[2018-11-18] MEDS: METOPROLOL TART IMMED RELEASE 25 MG TABLET. PO SCH (21:05)
[2018-11-18] MEDS: FAMOTIDINE 20 MG TABLET. PO SCH (21:05)
[2018-11-18 23:00] VITALS: BP 172/96
[2018-11-19 03:00] VITALS: BP 173/99
[2018-11-19 05:05] LABS: BASO # 0.1 x10^3/uL (0.0-0.2); BASO % 1 % (0-3); EOS # 0.4 x10^3/uL (0.0-0.7); EOS % 7 % (0-3); HEMATOCRIT 39.6 % (39.0-53.0); HEMOGLOBIN 13.1 g/dL (13.0-17.5); LYMPH # 1.6 x10^3/uL (1.0-4.8); LYMPH % 26 % (24-48); MEAN CORPUSCULAR HEMOGLOBIN 28 pg (25-35); MEAN CORPUSCULAR HGB CONC 33 g/dL (31-37); MEAN CORPUSCULAR VOLUME 85 fL (79-100); MONO # 0.5 x10^3/uL (0.0-1.1); MONO % 7 % (0-9); NEUT # 3.7 x10^3uL (1.8-7.7); NEUT % 59 % (31-73); PLATELET COUNT 291 x10^3/uL (140-400); RED BLOOD COUNT 4.65 x10^6/uL (4.30-5.70); RED CELL DISTRIBUTION WIDTH 15.6 % (11.5-14.5); WHITE BLOOD COUNT 6.2 x10^3/uL (4.0-11.0)
[2018-11-19 05:26] LABS: CREATININE 0.9 mg/dL (0.7-1.3); POTASSIUM 4.2 mmol/L (3.5-5.1)
[2018-11-19] MEDS ORDERED: LEVOTHYROXINE 75 MCG TABLET PO SCH (06:00)
[2018-11-19 07:00] VITALS: BP 180/96
[2018-11-19] MEDS ORDERED: ASPIRIN ENTERIC COATED 81 MG TABLET.DR. PO SCH (08:00)
[2018-11-19] MEDS ORDERED: LISINOPRIL 10 MG TABLET PO ONE (08:30)
[2018-11-19] MEDS: FAMOTIDINE 20 MG TABLET. PO SCH (09:05)
[2018-11-19] MEDS: METOPROLOL TART IMMED RELEASE 25 MG TABLET. PO SCH (09:07)
--- NOTE | 2018-11-19 10:32 | PDOC ---
[employer] PROGRESS NOTE Chief Complaint Chief Complaint Chest pain w/ elevated troponin SVT DM II obesity remote history of smoking History of Present Illness History of Present Illness Patient seen and examined Troponin level no longer trending up HR returned to normal limits Discussed with nurse Vitals Vitals Vital Signs Date Time Temp Pulse Resp B/P (MAP) Pulse Ox O2 Delivery O2 Flow Rate FiO2 11/19/18 09:07 70 180/96 11/19/18 08:00 Room Air 11/19/18 07:00 97.4 18 96 97.4 Physical Exam General: Alert, Oriented X3, Cooperative, No acute distress Heart: Regular rate (SR), Normal S1, Normal S2, Other (2/6 systolic murmur to KARTHIK border) Abdomen: Soft, No tenderness, Other (obese) Extremities: No cyanosis, Other (1+ bilateral LE pitting edema) Skin: Other (generalized scratches to bilateral calf, venous insufficiency) Labs LABS Laboratory Tests Test 11/18/18 23:01 11/19/18 04:50 11/19/18 06:21 Glucose (Fingerstick) 94 mg/dL (70-99) 117 mg/dL (70-99) White Blood Count 6.2 x10^3/uL (4.0-11.0) Red Blood Count 4.65 x10^6/uL (4.30-5.70) Hemoglobin 13.1 g/dL (13.0-17.5) Hematocrit 39.6 % (39.0-53.0) Mean Corpuscular Volume 85 fL (79-100) Mean Corpuscular Hemoglobin 28 pg (25-35) Mean Corpuscular Hemoglobin Concent 33 g/dL (31-37) Red Cell Distribution Width 15.6 % (11.5-14.5) Platelet Count 291 x10^3/uL (140-400) Neutrophils (%) (Auto) 59 % (31-73) Lymphocytes (%) (Auto) 26 % (24-48) Monocytes (%) (Auto) 7 % (0-9) Eosinophils (%) (Auto) 7 % (0-3) Basophils (%) (Auto) 1 % (0-3) Neutrophils # (Auto) 3.7 x10^3uL (1.8-7.7) Lymphocytes # (Auto) 1.6 x10^3/uL (1.0-4.8) Monocytes # (Auto) 0.5 x10^3/uL (0.0-1.1) Eosinophils # (Auto) 0.4 x10^3/uL (0.0-0.7) Basophils # (Auto) 0.1 x10^3/uL (0.0-0.2) Sodium Level 139 mmol/L (136-145) Potassium Level 4.2 mmol/L (3.5-5.1) Chloride Level 101 mmol/L (98-107) Carbon Dioxide Level 30 mmol/L (21-32) Anion Gap 8 (6-14) Blood Urea Nitrogen 10 mg/dL (8-26) Creatinine 0.9 mg/dL (0.7-1.3) Estimated GFR (Cockcroft-Gault) 89.0 Glucose Level 108 mg/dL (70-99) Calcium Level 9.0 mg/dL (8.5-10.1) Review of Systems Review of Systems Patient denies HOPPER Patient denies abdominal pain Assessment and Plan Assessmemt and Plan Problems Medical Problems: (1) Pulmonary nodule Status: Acute Assessment: Chest pain w/ elevated troponin SVT DM II obesity remote history of smoking Plan: Cardiac monitoring Full code DVT prophylaxis Home meds PT OT Frequent labs Probable discharge home today if subspecialists agree Follow up with cardio as out patient for stress test Comment Review of Relevant I have reviewed the following items myra (where applicable) has been applied. Labs Laboratory Tests Test 11/18/18 01:38 11/18/18 01:52 11/18/18 07:15 11/18/18 10:13 White Blood Count 7.9 x10^3/uL (4.0-11.0) Red Blood Count 4.94 x10^6/uL (4.30-5.70) Hemoglobin 13.9 g/dL (13.0-17.5) Hematocrit 42.0 % (39.0-53.0) Mean Corpuscular Volume 85 fL (79-100) Mean Corpuscular Hemoglobin 28 pg (25-35) Mean Corpuscular Hemoglobin Concent 33 g/dL (31-37) Red Cell Distribution Width 15.7 % (11.5-14.5) Platelet Count 317 x10^3/uL (140-400) Neutrophils (%) (Auto) 61 % (31-73) Lymphocytes (%) (Auto) 25 % (24-48) Monocytes (%) (Auto) 6 % (0-9) Eosinophils (%) (Auto) 7 % (0-3) Basophils (%) (Auto) 1 % (0-3) Neutrophils # (Auto) 4.9 x10^3uL (1.8-7.7) Lymphocytes # (Auto) 2.0 x10^3/uL (1.0-4.8) Monocytes # (Auto) 0.5 x10^3/uL (0.0-1.1) Eosinophils # (Auto) 0.6 x10^3/uL (0.0-0.7) Basophils # (Auto) 0.1 x10^3/uL (0.0-0.2) Prothrombin Time 12.2 SEC (11.7-14.0) Prothromb Time International Ratio 0.9 (0.8-1.1) Sodium Level 138 mmol/L (136-145) Potassium Level 3.7 mmol/L (3.5-5.1) Chloride Level 101 mmol/L (98-107) Carbon Dioxide Level 32 mmol/L (21-32) Anion Gap 5 (6-14) Blood Urea Nitrogen 10 mg/dL (8-26) Creatinine 1.1 mg/dL (0.7-1.3) Estimated GFR (Cockcroft-Gault) 70.6 BUN/Creatinine Ratio 9 (6-20) Glucose Level 151 mg/dL (70-99) Calcium Level 9.3 mg/dL (8.5-10.1) Magnesium Level 2.0 mg/dL (1.8-2.4) Total Bilirubin 0.2 mg/dL (0.2-1.0) Aspartate Amino Transf (AST/SGOT) 23 U/L (15-37) Alanine Aminotransferase (ALT/SGPT) 36 U/L (16-63) Alkaline Phosphatase 80 U/L (46-116) Creatine Kinase 163 U/L (39-308) Creatine Kinase MB (Mass) 1.6 ng/mL (0.0-3.6) Creatine Kinase MB Relative Index 1.0 % (0-4) Troponin I Quantitative < 0.017 ng/mL (0.000-0.055) 0.163 ng/mL (0.000-0.055) 0.141 ng/mL (0.000-0.055) QD-Ibk-H-Type Natriuretic Peptide 120 pg/mL (0-124) Total Protein 7.7 g/dL (6.4-8.2) Albumin 3.3 g/dL (3.4-5.0) Albumin/Globulin Ratio 0.8 (1.0-1.7) Lipase 197 U/L (73-393) Thyroid Stimulating Hormone (TSH) 9.032 uIU/mL (0.358-3.74) Free Thyroxine 0.79 ng/dL (0.76-1.46) Free Triiodothyronine (T3) pg/mL 2.52 pg/mL (2.18-3.98) Lactic Acid Level 1.9 mmol/L (0.4-2.0) Test 11/18/18 23:01 11/19/18 04:50 11/19/18 06:21 Glucose (Fingerstick) 94 mg/dL (70-99) 117 mg/dL (70-99) White Blood Count 6.2 x10^3/uL (4.0-11.0) Red Blood Count 4.65 x10^6/uL (4.30-5.70) Hemoglobin 13.1 g/dL (13.0-17.5) Hematocrit 39.6 % (39.0-53.0) Mean Corpuscular Volume 85 fL (79-100) Mean Corpuscular Hemoglobin 28 pg (25-35) Mean Corpuscular Hemoglobin Concent 33 g/dL (31-37) Red Cell Distribution Width 15.6 % (11.5-14.5) Platelet Count 291 x10^3/uL (140-400) Neutrophils (%) (Auto) 59 % (31-73) Lymphocytes (%) (Auto) 26 % (24-48) Monocytes (%) (Auto) 7 % (0-9) Eosinophils (%) (Auto) 7 % (0-3) Basophils (%) (Auto) 1 % (0-3) Neutrophils # (Auto) 3.7 x10^3uL (1.8-7.7) Lymphocytes # (Auto) 1.6 x10^3/uL (1.0-4.8) Monocytes # (Auto) 0.5 x10^3/uL (0.0-1.1) Eosinophils # (Auto) 0.4 x10^3/uL (0.0-0.7) Basophils # (Auto) 0.1 x10^3/uL (0.0-0.2) Sodium Level 139 mmol/L (136-145) Potassium Level 4.2 mmol/L (3.5-5.1) Chloride Level 101 mmol/L (98-107) Carbon Dioxide Level 30 mmol/L (21-32) Anion Gap 8 (6-14) Blood Urea Nitrogen 10 mg/dL (8-26) Creatinine 0.9 mg/dL (0.7-1.3) Estimated GFR (Cockcroft-Gault) 89.0 Glucose Level 108 mg/dL (70-99) Calcium Level 9.0 mg/dL (8.5-10.1) Laboratory Tests Test 11/18/18 23:01 11/19/18 04:50 11/19/18 06:21 Glucose (Fingerstick) 94 mg/dL (70-99) 117 mg/dL (70-99) White Blood Count 6.2 x10^3/uL (4.0-11.0) Red Blood Count 4.65 x10^6/uL (4.30-5.70) Hemoglobin 13.1 g/dL (13.0-17.5) Hematocrit 39.6 % (39.0-53.0) Mean Corpuscular Volume 85 fL (79-100) Mean Corpuscular Hemoglobin 28 pg (25-35) Mean Corpuscular Hemoglobin Concent 33 g/dL (31-37) Red Cell Distribution Width 15.6 % (11.5-14.5) Platelet Count 291 x10^3/uL (140-400) Neutrophils (%) (Auto) 59 % (31-73) Lymphocytes (%) (Auto) 26 % (24-48) Monocytes (%) (Auto) 7 % (0-9) Eosinophils (%) (Auto) 7 % (0-3) Basophils (%) (Auto) 1 % (0-3) Neutrophils # (Auto) 3.7 x10^3uL (1.8-7.7) Lymphocytes # (Auto) 1.6 x10^3/uL (1.0-4.8) Monocytes # (Auto) 0.5 x10^3/uL (0.0-1.1) Eosinophils # (Auto) 0.4 x10^3/uL (0.0-0.7) Basophils # (Auto) 0.1 x10^3/uL (0.0-0.2) Sodium Level 139 mmol/L (136-145) Potassium Level 4.2 mmol/L (3.5-5.1) Chloride Level 101 mmol/L (98-107) Carbon Dioxide Level 30 mmol/L (21-32) Anion Gap 8 (6-14) Blood Urea Nitrogen 10 mg/dL (8-26) Creatinine 0.9 mg/dL (0.7-1.3) Estimated GFR (Cockcroft-Gault) 89.0 Glucose Level 108 mg/dL (70-99) Calcium Level 9.0 mg/dL (8.5-10.1) Medications Current Medications Aspirin (PiniOn Aspirin) 325 mg 1X ONCE PO Last administered on 11/18/18at 02:16; Start 11/18/18 at 01:45; Stop 11/18/18 at 01:46; Status DC Lorazepam (Ativan) 0.5 mg 1X ONCE IV Last administered on 11/18/18at 02:41; Start 11/18/18 at 02:45; Stop 11/18/18 at 02:46; Status DC Iohexol (Omnipaque 350 Mg/ml) 100 ml 1X ONCE IV Last administered on 11/18/18at 03:09; Start 11/18/18 at 03:00; Stop 11/18/18 at 03:13; Status DC Info (CONTRAST GIVEN -- Rx MONITORING) 1 each PRN DAILY PRN MC SEE COMMENTS; Start 11/18/18 at 03:15; Stop 11/20/18 at 03:14 Adenosine (Adenocard) 6 mg 1X ONCE IV Last administered on 11/18/18at 03:41; Start 11/18/18 at 03:30; Stop 11/18/18 at 03:31; Status DC Ondansetron HCl (Zofran) 4 mg PRN Q8HRS PRN IV NAUSEA/VOMITING; Start 11/18/18 at 04:15; Stop 11/19/18 at 04:14; Status DC Fentanyl Citrate (Fentanyl 2ml Vial) 50 mcg PRN Q2HR PRN IV PAIN; Start 11/18/18 at 04:15; Status UNV Fentanyl Citrate (Fentanyl 2ml Vial) 50 mcg PRN Q2HR PRN IV PAIN; Start 11/18/18 at 04:30 Perflutren Protein Type A Microsphe (Optison) 0.66 mg STK-MED ONCE IV ; Start 11/18/18 at 09:18; Stop 11/18/18 at 09:19; Status DC Metoprolol Tartrate (Lopressor) 12.5 mg BID PO Last administered on 11/19/18at 09:07; Start 11/18/18 at 21:00 Aspirin (Ecotrin) 81 mg DAILYWBKFT PO Last administered on 11/19/18at 09:05; Start 11/19/18 at 08:00 Perflutren Protein Type A Microsphe (Optison) 0.66 mg PRN 1X PRN IV SEE COMMENTS Last administered on 11/18/18at 14:14; Start 11/18/18 at 14:15; Stop 11/19/18 at 14:14 Albuterol Sulfate (Ventolin Neb Soln) 2.5 mg PRN QID PRN INH SHORTNESS OF BREATH; Start 11/18/18 at 21:00 Furosemide (Lasix) 20 mg PRN DAILY PRN PO swelling; Start 11/18/18 at 21:00 Levothyroxine Sodium (Synthroid) 75 mcg DAILY06 PO Last administered on 11/19/18at 06:17; Start 11/19/18 at 06:00 Hydroxyzine Pamoate (Vistaril) 1 mg PRN Q8HRS PRN PO AGITATION/ANXIETY; Start 11/18/18 at 21:00 Famotidine (Pepcid) 20 mg BID PO Last administered on 11/19/18at 09:05; Start 11/18/18 at 21:00 Simvastatin (Zocor) 20 mg HS PO Last administered on 11/18/18at 21:05; Start 11/18/18 at 21:00 Lisinopril (Prinivil) 10 mg 1X ONCE PO Last administered on 11/19/18at 09:06; Start 11/19/18 at 08:30; Stop 11/19/18 at 08:31; Status DC Active Scripts Active Reported Hydroxyzine Hcl 25 Mg Tablet 1 Tab PO Q8HRS PRN Simvastatin 20 Mg Tablet 20 Mg PO HS Levothyroxine Sodium 75 Mcg Tablet 75 Mcg PO DAILY Furosemide 20 Mg Tablet 20 Mg PO DAILY PRN take 1-2 tabs a day as needed for swelling Ranitidine Hcl 150 Mg Tablet 1 Tab PO BID Proventil Hfa Inhaler (Albuterol Sulfate) 6.7 Gm Hfa.aer.ad 2 Puff IH QID Vitals/I & O Vital Sign - Last 24 Hours 11/18/18 11/18/18 11/18/18 11/18/18 14:12 18:14 19:40 21:05 Temp 97.8 97.6 97.8 97.6 Pulse 85 74 75 Resp 18 20 B/P (MAP) 148/81 (103) 138/82 (100) 144/87 Pulse Ox 96 98 O2 Delivery Room Air Room Air Room Air 11/18/18 11/19/18 11/19/18 11/19/18 23:00 03:00 07:00 08:00 Temp 98.0 97.6 97.4 98.0 97.6 97.4 Pulse 70 64 70 Resp 20 20 18 B/P (MAP) 172/96 (121) 173/99 (123) 180/96 (124) Pulse Ox 96 95 96 O2 Delivery Room Air Room Air Room Air Room Air 11/19/18 11/19/18 09:06 09:07 Pulse 70 70 B/P (MAP) 180/96 180/96 Intake and Output 11/18/18 11/18/18 11/19/18 15:00 23:00 07:00 Intake Total 300 ml 1500 ml 640 ml Balance 300 ml 1500 ml 640 ml FÉLIX SHAIKH III DO November 19, 2018 10:32
--- NOTE | 2018-11-19 10:50 | PDOC ---
PULMONARY PROGRESS NOTES Vitals Vital Signs Date Time Temp Pulse Resp B/P (MAP) Pulse Ox O2 Delivery O2 Flow Rate FiO2 11/19/18 09:07 70 180/96 11/19/18 08:00 Room Air 11/19/18 07:00 97.4 18 96 97.4 Labs Laboratory Tests Test 11/18/18 01:38 11/18/18 01:52 11/18/18 07:15 11/18/18 10:13 White Blood Count 7.9 x10^3/uL (4.0-11.0) Red Blood Count 4.94 x10^6/uL (4.30-5.70) Hemoglobin 13.9 g/dL (13.0-17.5) Hematocrit 42.0 % (39.0-53.0) Mean Corpuscular Volume 85 fL (79-100) Mean Corpuscular Hemoglobin 28 pg (25-35) Mean Corpuscular Hemoglobin Concent 33 g/dL (31-37) Red Cell Distribution Width 15.7 % (11.5-14.5) Platelet Count 317 x10^3/uL (140-400) Neutrophils (%) (Auto) 61 % (31-73) Lymphocytes (%) (Auto) 25 % (24-48) Monocytes (%) (Auto) 6 % (0-9) Eosinophils (%) (Auto) 7 % (0-3) Basophils (%) (Auto) 1 % (0-3) Neutrophils # (Auto) 4.9 x10^3uL (1.8-7.7) Lymphocytes # (Auto) 2.0 x10^3/uL (1.0-4.8) Monocytes # (Auto) 0.5 x10^3/uL (0.0-1.1) Eosinophils # (Auto) 0.6 x10^3/uL (0.0-0.7) Basophils # (Auto) 0.1 x10^3/uL (0.0-0.2) Prothrombin Time 12.2 SEC (11.7-14.0) Prothromb Time International Ratio 0.9 (0.8-1.1) Sodium Level 138 mmol/L (136-145) Potassium Level 3.7 mmol/L (3.5-5.1) Chloride Level 101 mmol/L (98-107) Carbon Dioxide Level 32 mmol/L (21-32) Anion Gap 5 (6-14) Blood Urea Nitrogen 10 mg/dL (8-26) Creatinine 1.1 mg/dL (0.7-1.3) Estimated GFR (Cockcroft-Gault) 70.6 BUN/Creatinine Ratio 9 (6-20) Glucose Level 151 mg/dL (70-99) Calcium Level 9.3 mg/dL (8.5-10.1) Magnesium Level 2.0 mg/dL (1.8-2.4) Total Bilirubin 0.2 mg/dL (0.2-1.0) Aspartate Amino Transf (AST/SGOT) 23 U/L (15-37) Alanine Aminotransferase (ALT/SGPT) 36 U/L (16-63) Alkaline Phosphatase 80 U/L (46-116) Creatine Kinase 163 U/L (39-308) Creatine Kinase MB (Mass) 1.6 ng/mL (0.0-3.6) Creatine Kinase MB Relative Index 1.0 % (0-4) Troponin I Quantitative < 0.017 ng/mL (0.000-0.055) 0.163 ng/mL (0.000-0.055) 0.141 ng/mL (0.000-0.055) ZY-Myt-B-Type Natriuretic Peptide 120 pg/mL (0-124) Total Protein 7.7 g/dL (6.4-8.2) Albumin 3.3 g/dL (3.4-5.0) Albumin/Globulin Ratio 0.8 (1.0-1.7) Lipase 197 U/L (73-393) Thyroid Stimulating Hormone (TSH) 9.032 uIU/mL (0.358-3.74) Free Thyroxine 0.79 ng/dL (0.76-1.46) Free Triiodothyronine (T3) pg/mL 2.52 pg/mL (2.18-3.98) Lactic Acid Level 1.9 mmol/L (0.4-2.0) Test 11/18/18 23:01 11/19/18 04:50 11/19/18 06:21 Glucose (Fingerstick) 94 mg/dL (70-99) 117 mg/dL (70-99) White Blood Count 6.2 x10^3/uL (4.0-11.0) Red Blood Count 4.65 x10^6/uL (4.30-5.70) Hemoglobin 13.1 g/dL (13.0-17.5) Hematocrit 39.6 % (39.0-53.0) Mean Corpuscular Volume 85 fL (79-100) Mean Corpuscular Hemoglobin 28 pg (25-35) Mean Corpuscular Hemoglobin Concent 33 g/dL (31-37) Red Cell Distribution Width 15.6 % (11.5-14.5) Platelet Count 291 x10^3/uL (140-400) Neutrophils (%) (Auto) 59 % (31-73) Lymphocytes (%) (Auto) 26 % (24-48) Monocytes (%) (Auto) 7 % (0-9) Eosinophils (%) (Auto) 7 % (0-3) Basophils (%) (Auto) 1 % (0-3) Neutrophils # (Auto) 3.7 x10^3uL (1.8-7.7) Lymphocytes # (Auto) 1.6 x10^3/uL (1.0-4.8) Monocytes # (Auto) 0.5 x10^3/uL (0.0-1.1) Eosinophils # (Auto) 0.4 x10^3/uL (0.0-0.7) Basophils # (Auto) 0.1 x10^3/uL (0.0-0.2) Sodium Level 139 mmol/L (136-145) Potassium Level 4.2 mmol/L (3.5-5.1) Chloride Level 101 mmol/L (98-107) Carbon Dioxide Level 30 mmol/L (21-32) Anion Gap 8 (6-14) Blood Urea Nitrogen 10 mg/dL (8-26) Creatinine 0.9 mg/dL (0.7-1.3) Estimated GFR (Cockcroft-Gault) 89.0 Glucose Level 108 mg/dL (70-99) Calcium Level 9.0 mg/dL (8.5-10.1) Laboratory Tests Test 11/18/18 23:01 11/19/18 04:50 11/19/18 06:21 Glucose (Fingerstick) 94 mg/dL (70-99) 117 mg/dL (70-99) White Blood Count 6.2 x10^3/uL (4.0-11.0) Red Blood Count 4.65 x10^6/uL (4.30-5.70) Hemoglobin 13.1 g/dL (13.0-17.5) Hematocrit 39.6 % (39.0-53.0) Mean Corpuscular Volume 85 fL (79-100) Mean Corpuscular Hemoglobin 28 pg (25-35) Mean Corpuscular Hemoglobin Concent 33 g/dL (31-37) Red Cell Distribution Width 15.6 % (11.5-14.5) Platelet Count 291 x10^3/uL (140-400) Neutrophils (%) (Auto) 59 % (31-73) Lymphocytes (%) (Auto) 26 % (24-48) Monocytes (%) (Auto) 7 % (0-9) Eosinophils (%) (Auto) 7 % (0-3) Basophils (%) (Auto) 1 % (0-3) Neutrophils # (Auto) 3.7 x10^3uL (1.8-7.7) Lymphocytes # (Auto) 1.6 x10^3/uL (1.0-4.8) Monocytes # (Auto) 0.5 x10^3/uL (0.0-1.1) Eosinophils # (Auto) 0.4 x10^3/uL (0.0-0.7) Basophils # (Auto) 0.1 x10^3/uL (0.0-0.2) Sodium Level 139 mmol/L (136-145) Potassium Level 4.2 mmol/L (3.5-5.1) Chloride Level 101 mmol/L (98-107) Carbon Dioxide Level 30 mmol/L (21-32) Anion Gap 8 (6-14) Blood Urea Nitrogen 10 mg/dL (8-26) Creatinine 0.9 mg/dL (0.7-1.3) Estimated GFR (Cockcroft-Gault) 89.0 Glucose Level 108 mg/dL (70-99) Calcium Level 9.0 mg/dL (8.5-10.1) Medications Active Scripts Medications Dose Route/Sig Max Daily Dose Days Date Category Dose Instructions Hydroxyzine Hcl 25 Mg Tablet 1 Tab PO Q8HRS PRN 11/18/18 Reported Simvastatin 20 Mg Tablet 20 Mg PO HS 11/18/18 Reported Levothyroxine Sodium 75 Mcg Tablet 75 Mcg PO DAILY 11/18/18 Reported Furosemide 20 Mg Tablet 20 Mg PO DAILY PRN 11/18/18 Reported take 1-2 tabs a day as needed for swelling Ranitidine Hcl 150 Mg Tablet 1 Tab PO BID 10/12/14 Reported Proventil Hfa Inhaler (Albuterol Sulfate) 6.7 Gm Hfa.aer.ad 2 Puff IH QID 10/12/14 Reported Impression . IMPRESSION: 1. Examination is nondiagnostic for pulmonary embolism as there is not enough contrast within the pulmonary artery and its branches. 2. Coronary artery calcifications. 3. 9 mm nodule identified in the right upper lobe of the lung. A 1 cm opacity identified in the right lower lobe of the lung and a focal opacity identified in the left lingula of the lung measuring 6 mm could be atelectasis or infiltrate or nodules. Follow-up examination is recommended per Fleischner Society guidelines in 3 months. ULISES GARCIA MD November 19, 2018 10:49
[2018-11-19 11:00] VITALS: BP 135/85
[2018-11-19] MEDS ORDERED: METO25TA4 PO (12:51)
[2018-11-19] MEDS ORDERED: LISI10TA2 PO (12:54)
--- NOTE | 2018-11-19 13:45 | NUR ---
Discharge Note: DEVON CHAVARRIA Discharge instructions and discharge home medications reviewed with Patient and a copy given. All questions have been answered and understanding verbalized. The following instructions and handouts were given: Metoprolol and Lisinopril Patient discharged to home via wheelchair.
--- NOTE | 2018-11-19 14:08 | PDOC ---
PULMONARY PROGRESS NOTES Vitals Vital Signs Date Time Temp Pulse Resp B/P (MAP) Pulse Ox O2 Delivery O2 Flow Rate FiO2 11/19/18 11:00 98.8 67 135/85 (102) 98.8 11/19/18 08:00 Room Air 11/19/18 07:00 18 96 Labs Laboratory Tests Test 11/18/18 01:38 11/18/18 01:52 11/18/18 07:15 11/18/18 10:13 White Blood Count 7.9 x10^3/uL (4.0-11.0) Red Blood Count 4.94 x10^6/uL (4.30-5.70) Hemoglobin 13.9 g/dL (13.0-17.5) Hematocrit 42.0 % (39.0-53.0) Mean Corpuscular Volume 85 fL (79-100) Mean Corpuscular Hemoglobin 28 pg (25-35) Mean Corpuscular Hemoglobin Concent 33 g/dL (31-37) Red Cell Distribution Width 15.7 % (11.5-14.5) Platelet Count 317 x10^3/uL (140-400) Neutrophils (%) (Auto) 61 % (31-73) Lymphocytes (%) (Auto) 25 % (24-48) Monocytes (%) (Auto) 6 % (0-9) Eosinophils (%) (Auto) 7 % (0-3) Basophils (%) (Auto) 1 % (0-3) Neutrophils # (Auto) 4.9 x10^3uL (1.8-7.7) Lymphocytes # (Auto) 2.0 x10^3/uL (1.0-4.8) Monocytes # (Auto) 0.5 x10^3/uL (0.0-1.1) Eosinophils # (Auto) 0.6 x10^3/uL (0.0-0.7) Basophils # (Auto) 0.1 x10^3/uL (0.0-0.2) Prothrombin Time 12.2 SEC (11.7-14.0) Prothromb Time International Ratio 0.9 (0.8-1.1) Sodium Level 138 mmol/L (136-145) Potassium Level 3.7 mmol/L (3.5-5.1) Chloride Level 101 mmol/L (98-107) Carbon Dioxide Level 32 mmol/L (21-32) Anion Gap 5 (6-14) Blood Urea Nitrogen 10 mg/dL (8-26) Creatinine 1.1 mg/dL (0.7-1.3) Estimated GFR (Cockcroft-Gault) 70.6 BUN/Creatinine Ratio 9 (6-20) Glucose Level 151 mg/dL (70-99) Calcium Level 9.3 mg/dL (8.5-10.1) Magnesium Level 2.0 mg/dL (1.8-2.4) Total Bilirubin 0.2 mg/dL (0.2-1.0) Aspartate Amino Transf (AST/SGOT) 23 U/L (15-37) Alanine Aminotransferase (ALT/SGPT) 36 U/L (16-63) Alkaline Phosphatase 80 U/L (46-116) Creatine Kinase 163 U/L (39-308) Creatine Kinase MB (Mass) 1.6 ng/mL (0.0-3.6) Creatine Kinase MB Relative Index 1.0 % (0-4) Troponin I Quantitative < 0.017 ng/mL (0.000-0.055) 0.163 ng/mL (0.000-0.055) 0.141 ng/mL (0.000-0.055) ZQ-Lpo-J-Type Natriuretic Peptide 120 pg/mL (0-124) Total Protein 7.7 g/dL (6.4-8.2) Albumin 3.3 g/dL (3.4-5.0) Albumin/Globulin Ratio 0.8 (1.0-1.7) Lipase 197 U/L (73-393) Thyroid Stimulating Hormone (TSH) 9.032 uIU/mL (0.358-3.74) Free Thyroxine 0.79 ng/dL (0.76-1.46) Free Triiodothyronine (T3) pg/mL 2.52 pg/mL (2.18-3.98) Lactic Acid Level 1.9 mmol/L (0.4-2.0) Test 11/18/18 23:01 11/19/18 04:50 11/19/18 06:21 11/19/18 11:52 Glucose (Fingerstick) 94 mg/dL (70-99) 117 mg/dL (70-99) 117 mg/dL (70-99) White Blood Count 6.2 x10^3/uL (4.0-11.0) Red Blood Count 4.65 x10^6/uL (4.30-5.70) Hemoglobin 13.1 g/dL (13.0-17.5) Hematocrit 39.6 % (39.0-53.0) Mean Corpuscular Volume 85 fL (79-100) Mean Corpuscular Hemoglobin 28 pg (25-35) Mean Corpuscular Hemoglobin Concent 33 g/dL (31-37) Red Cell Distribution Width 15.6 % (11.5-14.5) Platelet Count 291 x10^3/uL (140-400) Neutrophils (%) (Auto) 59 % (31-73) Lymphocytes (%) (Auto) 26 % (24-48) Monocytes (%) (Auto) 7 % (0-9) Eosinophils (%) (Auto) 7 % (0-3) Basophils (%) (Auto) 1 % (0-3) Neutrophils # (Auto) 3.7 x10^3uL (1.8-7.7) Lymphocytes # (Auto) 1.6 x10^3/uL (1.0-4.8) Monocytes # (Auto) 0.5 x10^3/uL (0.0-1.1) Eosinophils # (Auto) 0.4 x10^3/uL (0.0-0.7) Basophils # (Auto) 0.1 x10^3/uL (0.0-0.2) Sodium Level 139 mmol/L (136-145) Potassium Level 4.2 mmol/L (3.5-5.1) Chloride Level 101 mmol/L (98-107) Carbon Dioxide Level 30 mmol/L (21-32) Anion Gap 8 (6-14) Blood Urea Nitrogen 10 mg/dL (8-26) Creatinine 0.9 mg/dL (0.7-1.3) Estimated GFR (Cockcroft-Gault) 89.0 Glucose Level 108 mg/dL (70-99) Calcium Level 9.0 mg/dL (8.5-10.1) Laboratory Tests Test 11/18/18 23:01 11/19/18 04:50 11/19/18 06:21 11/19/18 11:52 Glucose (Fingerstick) 94 mg/dL (70-99) 117 mg/dL (70-99) 117 mg/dL (70-99) White Blood Count 6.2 x10^3/uL (4.0-11.0) Red Blood Count 4.65 x10^6/uL (4.30-5.70) Hemoglobin 13.1 g/dL (13.0-17.5) Hematocrit 39.6 % (39.0-53.0) Mean Corpuscular Volume 85 fL (79-100) Mean Corpuscular Hemoglobin 28 pg (25-35) Mean Corpuscular Hemoglobin Concent 33 g/dL (31-37) Red Cell Distribution Width 15.6 % (11.5-14.5) Platelet Count 291 x10^3/uL (140-400) Neutrophils (%) (Auto) 59 % (31-73) Lymphocytes (%) (Auto) 26 % (24-48) Monocytes (%) (Auto) 7 % (0-9) Eosinophils (%) (Auto) 7 % (0-3) Basophils (%) (Auto) 1 % (0-3) Neutrophils # (Auto) 3.7 x10^3uL (1.8-7.7) Lymphocytes # (Auto) 1.6 x10^3/uL (1.0-4.8) Monocytes # (Auto) 0.5 x10^3/uL (0.0-1.1) Eosinophils # (Auto) 0.4 x10^3/uL (0.0-0.7) Basophils # (Auto) 0.1 x10^3/uL (0.0-0.2) Sodium Level 139 mmol/L (136-145) Potassium Level 4.2 mmol/L (3.5-5.1) Chloride Level 101 mmol/L (98-107) Carbon Dioxide Level 30 mmol/L (21-32) Anion Gap 8 (6-14) Blood Urea Nitrogen 10 mg/dL (8-26) Creatinine 0.9 mg/dL (0.7-1.3) Estimated GFR (Cockcroft-Gault) 89.0 Glucose Level 108 mg/dL (70-99) Calcium Level 9.0 mg/dL (8.5-10.1) Medications Active Scripts Medications Dose Route/Sig Max Daily Dose Days Date Category Dose Instructions Hydroxyzine Hcl 25 Mg Tablet 1 Tab PO Q8HRS PRN 11/18/18 Reported Simvastatin 20 Mg Tablet 20 Mg PO HS 11/18/18 Reported Levothyroxine Sodium 75 Mcg Tablet 75 Mcg PO DAILY 11/18/18 Reported Furosemide 20 Mg Tablet 20 Mg PO DAILY PRN 11/18/18 Reported take 1-2 tabs a day as needed for swelling Ranitidine Hcl 150 Mg Tablet 1 Tab PO BID 10/12/14 Reported Proventil Hfa Inhaler (Albuterol Sulfate) 6.7 Gm Hfa.aer.ad 2 Puff IH QID 10/12/14 Reported Impression . PT NOT SEEN D/C NO ONE NOTIFIED ME SPOKE WITH RN SHE WILL CALL HIM TO NOTIFY PATIENT TO CALL MY OFFICE FOR FOLLOW UP NEEDS REPEAT CT CHEST IN 3 MONTHS IMPRESSION: 1. Examination is nondiagnostic for pulmonary embolism as there is not enough contrast within the pulmonary artery and its branches. 2. Coronary artery calcifications. 3. 9 mm nodule identified in the right upper lobe of the lung. A 1 cm opacity identified in the right lower lobe of the lung and a focal opacity identified in the left lingula of the lung measuring 6 mm could be atelectasis or infiltrate or nodules. Follow-up examination is recommended per Fleischner Society guidelines in 3 months. ULISES GARCIA MD November 19, 2018 14:08
[2018-11-19] MEDS ORDERED: hydrOXYzine PAMOATE 25 MG CAPSULE PO PRN (15:05)
--- NOTE | 2018-11-20 00:44 | DS ---
DATE OF DISCHARGE: 11/19/2018 ADMISSION DIAGNOSIS: Chest pain. DISCHARGE DIAGNOSIS: Atypical chest pain. HOSPITAL COURSE: The patient is a pleasant 53-year-old male who presented with chest pain. His troponin was slightly high at 0.16. It trended straight down to 0.14. We did consult Cardiology and the plan is to get his pressures under control and have him do an outpatient stress test. I saw him and examined him this morning. His heart tones were normal. His Lungs were clear. He wanted to go home. We plan to discharge. DISPOSITION: Home. ACTIVITY: As tolerated. DIET: Low sodium. MEDICATIONS: Please see the MRAD. TOTAL TIME: 32 minutes. FÉLIX SHAIKH DO DR: DELTA/shannon JOB#: [id number] / [id number]
== END 2018-11-19 14:30 | disposition home or self-care (01) ==
LOC: ER 01:28 → 2 SOUTH 03:55
PROVIDERS: ADMIT Family Medicine; ATTEND Family Medicine
DX: R07.89 Other chest pain (principal); F41.9 Anxiety disorder, unspecified; I47.1 Supraventricular tachycardia; R91.1 Solitary pulmonary nodule; R06.02 Shortness of breath; R06.2 Wheezing; R00.2 Palpitations; I10 Essential (primary) hypertension; E11.9 Type 2 diabetes mellitus without complications; E66.9 Obesity, unspecified; E78.5 Hyperlipidemia, unspecified; I25.10 Atherosclerotic heart disease of native coronary artery without angina pectoris; K21.9 Gastro-esophageal reflux disease without esophagitis; E78.00 Pure hypercholesterolemia, unspecified; E03.9 Hypothyroidism, unspecified; J40 Bronchitis, not specified as acute or chronic; Z87.891 Personal history of nicotine dependence; Z98.890 Other specified postprocedural states
CPT/HCPCS: 36415; 71275; 80048; 80053; 82553; 82962; 83605; 83690; 83735; 83880; 84439; 84443; 84481; 84484; 85025; 85610; 93005; 93971; 96374; 96375; 97161; 97165; 99284; C8929; G0378; J0153; J2060; Q9956; Q9967; G0379

== ENCOUNTER 2019-07-04 11:10 | Emergency (ER) | payer MEDICAID ==
[~2019-07-04] VITALS: Ht 170.2 cm; Wt 181.4 kg
[~2019-07-04 11:10] MED LIST changes: -ALBU2.5V8 IH; +FURO20TA3 PO; +HYDR25TA PO; +LEVO75TA5 PO; +LISI10TA2 PO; +METO25TA4 PO; +PROVENTIL HFA6.7 GM IH; +SIMV10TA15 PO; -SIMV10TA3 PO; +SIMV20TA18 PO
[2019-07-04] MEDS ORDERED: dilTIAZem IV PUSH 25 MG/5 ML VIAL IVP ONE (11:30)
[2019-07-04] MEDS ORDERED: dilTIAZem INJ 125 MG in IV NORMAL SALINE 100ML 100 ML IV ONE (11:30)
[2019-07-04 11:35] LABS: BASO # 0.1 x10^3/uL (0.0-0.2); BASO % 1 % (0-3); EOS # 0.8 x10^3/uL (0.0-0.7); EOS % 9 % (0-3); HEMATOCRIT 44.8 % (39.0-53.0); HEMOGLOBIN 14.8 g/dL (13.0-17.5); LYMPH % 23 % (24-48); MEAN CORPUSCULAR HEMOGLOBIN 28 pg (25-35); MEAN CORPUSCULAR HGB CONC 33 g/dL (31-37); MEAN CORPUSCULAR VOLUME 85 fL (79-100); MONO # 0.5 x10^3/uL (0.0-1.1); MONO % 5 % (0-9); NEUT # 5.6 x10^3/uL (1.8-7.7); NEUT % 63 % (31-73); PLATELET COUNT 293 x10^3/uL (140-400); RED BLOOD COUNT 5.24 x10^6/uL (4.30-5.70); RED CELL DISTRIBUTION WIDTH 15.4 % (11.5-14.5); WHITE BLOOD COUNT 8.9 x10^3/uL (4.0-11.0)
[2019-07-04 11:44] LABS: PROTHROMBIN TIME PATIENT 11.8 SEC (11.7-14.0)
[2019-07-04 11:45] LABS: CALCIUM 9.3 mg/dL (8.5-10.1); GFR 78.8; POTASSIUM 4.3 mmol/L (3.5-5.1)
[2019-07-04 11:53] LABS: ALBUMIN 3.5 g/dL (3.4-5.0); ALBUMIN/GLOBULIN RATIO 0.8 (1.0-1.7); TOTAL BILIRUBIN 0.2 mg/dL (0.2-1.0); TOTAL PROTEIN 8.1 g/dL (6.4-8.2)
--- NOTE | 2019-07-04 12:04 | PHYS DOC ---
Past Medical History Past Medical History: A-Fib, Anxiety, Cancer, Diabetes-Type I, High Cholesterol, Hypertension, Other Additional Past Medical Histor: PROSTATE CA,A-FIB/RVR Past Surgical History: Tonsillectomy, Other Additional Past Surgical Histo: thyroidectomy, left shoulder Alcohol Use: None Drug Use: None Adult General Chief Complaint Chief Complaint: RAPID HEART RATE HPI HPI Patient is a 53 year old male patient with history of hypertension, dyslipidemia, hypothyroidism, diabetes mellitus, atrial fibrillation, prostate cancer who presents with complaint of heart racing. Patient states he woke up around 0945 today with heart racing as a constant problem and checked his heart rate that was more than 150. Patient complaining of mild dizziness and shortness of breath without chest pain, focal neuro deficit, nausea and vomiting, fever and chills. Patient had atrial flutter ablation with RVR on May 29, 2019 and discharged home with increase of dose of metoprolol. Review of Systems Review of Systems Constitutional: Denies fever or chills [] Eyes: Denies change in visual acuity, redness, or eye pain [] HENT: Denies nasal congestion or sore throat [] Respiratory: Denies cough, reports shortness of breath [] Cardiovascular: No additional information not addressed in HPI [] GI: Denies abdominal pain, nausea, vomiting, bloody stools or diarrhea [] : Denies dysuria or hematuria [] Musculoskeletal: Denies back pain or joint pain [] Integument: Denies rash or skin lesions [] Neurologic: Denies headache, focal weakness or sensory changes [] Endocrine: Denies polyuria or polydipsia [] All other systems were reviewed and found to be within normal limits, except as documented in this note. Current Medications Current Medications Current Medications Medications (Trade) Dose Ordered Sig/Jessy Start Time Stop Time Status Last Admin Dose Admin Diltiazem HCl (Cardizem Iv Push) 20 mg 1X ONCE 07/04/19 11:30 07/04/19 11:31 DC 07/04/19 11:36 20 MG Diltiazem HCl 125 mg/Sodium Chloride 125 ml @ 10 mls/hr 1X ONCE 07/04/19 11:30 07/04/19 23:59 07/04/19 11:37 10 MLS/HR Allergies Allergies Allergies Coded Allergies Type Severity Reaction Last Updated Verified meperidine Allergy Severe Shortness of Air 10/12/14 No Physical Exam Physical Exam Constitutional: Well developed, well nourished, mild distress, non-toxic appearance, morbidly obese. [] HENT: Normocephalic, atraumatic. Eyes: PERRLA, EOMI, conjunctiva normal, no discharge. [] Neck: Normal range of motion, no tenderness, supple, no stridor. [] Cardiovascular: Irregularly irregular rhythm with tachycardia, no murmur [] Lungs & Thorax: Bilateral breath sounds clear to auscultation [] Abdomen: Bowel sounds normal, soft, no tenderness, no masses, no pulsatile masses. [] Skin: Warm, dry, no erythema, no rash. [] Back: No tenderness, no CVA tenderness. [] Extremities: No tenderness, no cyanosis, no clubbing, ROM intact, no edema. [] Neurologic: Alert and oriented X 3, no focal deficits noted. [] Psychologic: Affect normal, judgement normal, mood normal. [] Current Patient Data Vital Signs Vital Signs Date Time Temp Pulse Resp B/P (MAP) Pulse Ox O2 Delivery O2 Flow Rate FiO2 07/04/19 11:36 80 146/96 07/04/19 11:10 97.8 20 92 Room Air 97.8 Lab Values Laboratory Tests Test 07/04/19 11:25 White Blood Count 8.9 x10^3/uL (4.0-11.0) Red Blood Count 5.24 x10^6/uL (4.30-5.70) Hemoglobin 14.8 g/dL (13.0-17.5) Hematocrit 44.8 % (39.0-53.0) Mean Corpuscular Volume 85 fL (79-100) Mean Corpuscular Hemoglobin 28 pg (25-35) Mean Corpuscular Hemoglobin Concent 33 g/dL (31-37) Red Cell Distribution Width 15.4 % (11.5-14.5) H Platelet Count 293 x10^3/uL (140-400) Neutrophils (%) (Auto) 63 % (31-73) Lymphocytes (%) (Auto) 23 % (24-48) L Monocytes (%) (Auto) 5 % (0-9) Eosinophils (%) (Auto) 9 % (0-3) H Basophils (%) (Auto) 1 % (0-3) Neutrophils # (Auto) 5.6 x10^3/uL (1.8-7.7) Lymphocytes # (Auto) 2.0 x10^3/uL (1.0-4.8) Monocytes # (Auto) 0.5 x10^3/uL (0.0-1.1) Eosinophils # (Auto) 0.8 x10^3/uL (0.0-0.7) H Basophils # (Auto) 0.1 x10^3/uL (0.0-0.2) Prothrombin Time 11.8 SEC (11.7-14.0) Prothrombin Time INR 0.9 (0.8-1.1) Sodium Level 139 mmol/L (136-145) Potassium Level 4.3 mmol/L (3.5-5.1) Chloride Level 101 mmol/L (98-107) Carbon Dioxide Level 31 mmol/L (21-32) Anion Gap 7 (6-14) Blood Urea Nitrogen 19 mg/dL (8-26) Creatinine 1.0 mg/dL (0.7-1.3) Estimated GFR (Cockcroft-Gault) 78.8 BUN/Creatinine Ratio 19 (6-20) Glucose Level 124 mg/dL (70-99) H Calcium Level 9.3 mg/dL (8.5-10.1) Magnesium Level 2.0 mg/dL (1.8-2.4) Total Bilirubin 0.2 mg/dL (0.2-1.0) Aspartate Amino Transferase (AST) 17 U/L (15-37) Alanine Aminotransferase (ALT) 31 U/L (16-63) Alkaline Phosphatase 90 U/L (46-116) Creatine Kinase 46 U/L (39-308) Troponin I Quantitative < 0.017 ng/mL (0.000-0.055) HV-Unq-H-Type Natriuretic Peptide 63 pg/mL (0-124) Total Protein 8.1 g/dL (6.4-8.2) Albumin 3.5 g/dL (3.4-5.0) Albumin/Globulin Ratio 0.8 (1.0-1.7) L Lipase 158 U/L (73-393) Thyroid Stimulating Hormone (TSH) 7.470 uIU/mL (0.358-3.74) H Laboratory Tests 07/04/19 11:25 Laboratory Tests 07/04/19 11:25 EKG EKG EKG interpreted by me. EKG at 11:15 showed atrial fibrillation with RVR at rate of 145, no ST and T-wave elevation. Radiology/Procedures Radiology/Procedures [][facility] [address] [place] [address] IMAGING REPORT Signed PATIENT: DEVON CHAVARRIA ACCOUNT: [id number] : 1965 LOCATION: ER AGE: 53 SEX: M EXAM STATUS: REG ER ORD. PHYSICIAN: MATT DE LUNA MD REASON: palpitation PROCEDURE: PORTABLE CHEST 1V PORTABLE CHEST 1V History: Palpitations Comparison: May 29, 2019 Findings: No consolidation or pleural effusion. Mild cardiomegaly, unchanged. No pneumothorax. Postop changes left humeral head. Impression: 1. No acute cardiopulmonary process. Electronically signed by: Mohit Velasquez DO (07/04/2019 12:17 PM) [facility] DICTATED and SIGNED BY: MOHIT VELASQUEZ DO DATE: 07/04/19 1217 Course & Med Decision Making Course & Med Decision Making Pertinent Labs and Imaging studies reviewed. (See chart for details) Evaluation of patient in ER showed 53-year-old male patient with complaining of palpitation and EKG showed atrial flutter patient with RVR. Patient treated with 20 mg of Cardizem with conversion to sinus rhythm at rate of 80s. Patient had unremarkable labs except for mild elevation of TSH with history of hypothyroidism. Patient is not on any anticoagulation at this time.. the on-call data processing control clerk was consulted at 1219 and suggested to start patient on Eliquis 5 mg BID and follow-up with him at the office tomorrow. Patient advised to follow-up with his primary care physician regarding adjusting the dose of thyroxine. The patient feels comfortable to go home and was advised to return if develope palpitation. Dragon Disclaimer Dragon Disclaimer This electronic medical record was generated, in whole or in part, using a voice recognition dictation system. Departure Departure Impression: Primary Impression: Atrial fibrillation with RVR Additional Impressions: Hypothyroidism Morbid obesity with BMI of 60.0-69.9, adult Disposition: HOME, SELF-CARE (at 1237) Condition: IMPROVED Referrals: LETICIA MACDONALD MD (PCP) DILIP RUTH MD Patient Instructions: Atrial Fibrillation, Thyroid Diseases Additional Instructions: Follow-up with Dr. Ruth tomorrow at 8:30 Follow-up with your primary care physician in 3-5 days guarding abnormal thyroid test Return to ER if not getting better Thank you for visiting [facility]. We appreciate you trusting us with your care. If any additional problems come up don't hesitate to return to visit us. Please follow up with your primary care provider so they can plan additional care if needed and know about the problem that you had. If symptoms worsen come back to the Emergency Department. Any concerning symptoms that start such as chest pain, shortness of air, weakness or numbness on one side of the body, running high fevers or any other concerning symptoms return to the ER. Scripts Apixaban (ELIQUIS) 5 Mg Tablet 5 MG PO BID, #60 TAB Prov: MATT DE LUNA MD 07/04/19 Critical Care Time Critical care time was 50 minutes exclusive of procedures. Problem Qualifiers Additional Impressions: Hypothyroidism Hypothyroidism type: unspecified Qualified Codes: E03.9 - Hypothyroidism, unspecified MATT DE LUNA MD Jul 04, 2019 12:04
--- NOTE | 2019-07-04 12:19 | RAD ---
PORTABLE CHEST 1V History: Palpitations Comparison: May 29, 2019 Findings: No consolidation or pleural effusion. Mild cardiomegaly, unchanged. No pneumothorax. Postop changes left humeral head. Impression: 1. No acute cardiopulmonary process. Electronically signed by: Mohit Velasquez DO (07/04/2019 12:17 PM) [facility]
[2019-07-04] MEDS ORDERED: APIX5TAB PO (12:39)
[2019-07-04 12:43] VITALS: BP 142/82
--- NOTE | 2019-07-05 06:36 | EKG ---
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
== END 2019-07-04 13:00 | disposition home or self-care (01) ==
LOC: ER 11:10
DX: I48.20 Chronic atrial fibrillation, unspecified (principal); E03.9 Hypothyroidism, unspecified; E66.01 Morbid (severe) obesity due to excess calories; Z68.44 Body mass index [BMI] 60.0-69.9, adult; I10 Essential (primary) hypertension; E11.9 Type 2 diabetes mellitus without complications; E78.00 Pure hypercholesterolemia, unspecified; Z88.6 Allergy status to analgesic agent
CPT/HCPCS: 36415; 71045; 80053; 82550; 83690; 83735; 83880; 84443; 84484; 85025; 85610; 93005; 96365; 96376; 99291; J3490; 99285-25

== ENCOUNTER 2019-07-12 11:22 | Emergency (ER) | payer MEDICAID ==
[~2019-07-12] VITALS: Ht 177.8 cm; Wt 181.4 kg
[~2019-07-12 11:22] MED LIST changes: +APIX5TAB PO
[2019-07-12] MEDS ORDERED: ASPIRIN 325 MG TABLET PO ONE (11:45)
[2019-07-12] MEDS ORDERED: ADENOSINE 6 MG/2 ML VIAL. IV ONE (11:45)
--- NOTE | 2019-07-12 11:48 | PHYS DOC ---
Past Medical History Past Medical History: A-Fib, Anxiety, Cancer, Diabetes-Type I, High Cholesterol, Hypertension, Other Additional Past Medical Histor: PROSTATE CA,A-FIB/RVR Past Surgical History: Tonsillectomy, Other Additional Past Surgical Histo: thyroidectomy, left shoulder Additional Information: nonsmoker Alcohol Use: None Drug Use: None Adult General Chief Complaint Chief Complaint: CHEST PAIN HPI HPI Patient is 53-year-old male with past medical history of hypertension, high cholesterol, A. fib, heart disease that is presenting to emergency Department with 2 hours worth of chest pain, and 2 days worth of right big toe pain. Patient states that the right big toe pain started 2 days ago and acutely worsened overnight, he has not tried anything at home for this, he has no history of gout patient states the pain is a 10 out of 10 and flexibility walk. Patient states that this morning he developed chest heaviness that is localized to the center of his chest, he was not anything specific on that pain started, he has not associated any alleviating or aggravating factors. Patient denies shortness of breath, fever, chills, nausea, vomiting, headache, confusion, dysuria, or increased frequency. Review of Systems Review of Systems Constitutional: Denies fever or chills Eyes: Denies redness or eye pain HENT: Denies nasal congestion or sore throat Respiratory: Denies cough or shortness of breath Cardiovascular: Reports chest pain and palpitations GI: Denies abdominal pain, nausea, or vomiting : Denies dysuria or hematuria Musculoskeletal: Denies back pain, reports joint pain Integument: Denies rash or skin lesions Neurologic: Denies headache, focal weakness or sensory changes Complete systems were reviewed and found to be within normal limits, except as documented in this note. Current Medications Current Medications Current Medications Medications (Trade) Dose Ordered Sig/Jessy Start Time Stop Time Status Last Admin Dose Admin Adenosine (Adenocard) 6 mg 1X ONCE 07/12/19 11:45 07/12/19 11:48 DC 07/12/19 12:02 6 MG Aspirin (Michele Aspirin) 325 mg 1X ONCE 07/12/19 11:45 07/12/19 11:46 DC 07/12/19 12:02 325 MG Fentanyl Citrate (Fentanyl 2ml Vial) 50 mcg 1X ONCE 07/12/19 12:00 07/12/19 12:01 DC 07/12/19 12:02 50 MCG Ketorolac Tromethamine (Toradol 15mg Vial) 15 mg 1X ONCE 07/12/19 12:15 07/12/19 12:16 DC 07/12/19 12:45 15 MG Sodium Chloride 1,000 ml @ 1,000 mls/hr 1X ONCE 07/12/19 12:15 07/12/19 13:14 DC 07/12/19 12:47 1,000 MLS/HR Allergies Allergies Allergies Coded Allergies Type Severity Reaction Last Updated Verified meperidine Allergy Severe Shortness of Air 10/12/14 No Physical Exam Physical Exam Constitutional: Well developed, well nourished, no acute distress, non-toxic appearance HENT: Normocephalic, atraumatic, oropharynx moist Eyes: Conjunctiva normal, no discharge Neck: Normal range of motion, no tenderness, supple Cardiovascular: Heart rate tachycardic, regular rhythm Lungs & Thorax: Bilateral breath sounds clear to auscultation, no wheezing Abdomen: Soft, no tenderness Skin: Warm, dry, no erythema, no rash Back: No tenderness, no CVA tenderness Extremities: ROM intact, no edema, tenderness, erythema, edema of the right first metatarsal phalangeal joint of the foot Neurologic: Alert and oriented X 3, normal motor function, normal sensory function, no focal deficits noted Psychologic: Affect normal, judgement normal, mood normal Current Patient Data Vital Signs Vital Signs Date Time Temp Pulse Resp B/P (MAP) Pulse Ox O2 Delivery O2 Flow Rate FiO2 07/12/19 13:00 18 18 167/97 (120) 96 Room Air 07/12/19 11:34 98.0 98.0 Lab Values Laboratory Tests Test 07/12/19 11:45 White Blood Count 11.2 x10^3/uL (4.0-11.0) H Red Blood Count 5.22 x10^6/uL (4.30-5.70) Hemoglobin 14.6 g/dL (13.0-17.5) Hematocrit 44.4 % (39.0-53.0) Mean Corpuscular Volume 85 fL (79-100) Mean Corpuscular Hemoglobin 28 pg (25-35) Mean Corpuscular Hemoglobin Concent 33 g/dL (31-37) Red Cell Distribution Width 15.5 % (11.5-14.5) H Platelet Count 288 x10^3/uL (140-400) Neutrophils (%) (Auto) 75 % (31-73) H Lymphocytes (%) (Auto) 14 % (24-48) L Monocytes (%) (Auto) 4 % (0-9) Eosinophils (%) (Auto) 7 % (0-3) H Basophils (%) (Auto) 1 % (0-3) Neutrophils # (Auto) 8.4 x10^3/uL (1.8-7.7) H Lymphocytes # (Auto) 1.5 x10^3/uL (1.0-4.8) Monocytes # (Auto) 0.5 x10^3/uL (0.0-1.1) Eosinophils # (Auto) 0.8 x10^3/uL (0.0-0.7) H Basophils # (Auto) 0.1 x10^3/uL (0.0-0.2) Prothrombin Time 12.7 SEC (11.7-14.0) Prothrombin Time INR 1.0 (0.8-1.1) Activated Partial Thromboplast Time 27 SEC (24-38) D-Dimer (Maria Luz) 0.31 ug/mlFEU (0.00-0.50) Sodium Level 138 mmol/L (136-145) Potassium Level 4.0 mmol/L (3.5-5.1) Chloride Level 100 mmol/L (98-107) Carbon Dioxide Level 28 mmol/L (21-32) Anion Gap 10 (6-14) Blood Urea Nitrogen 14 mg/dL (8-26) Creatinine 1.0 mg/dL (0.7-1.3) Estimated GFR (Cockcroft-Gault) 78.8 BUN/Creatinine Ratio 14 (6-20) Glucose Level 121 mg/dL (70-99) H Uric Acid 7.5 mg/dL (3.5-7.2) H Calcium Level 9.1 mg/dL (8.5-10.1) Magnesium Level 1.8 mg/dL (1.8-2.4) Total Bilirubin 0.4 mg/dL (0.2-1.0) Aspartate Amino Transferase (AST) 17 U/L (15-37) Alanine Aminotransferase (ALT) 28 U/L (16-63) Alkaline Phosphatase 94 U/L (46-116) Creatine Kinase 47 U/L (39-308) Creatine Kinase MB (Mass) 0.6 ng/mL (0.0-3.6) Creatine Kinase MB Relative Index % (0-4) Troponin I Quantitative < 0.017 ng/mL (0.000-0.055) IT-Wde-A-Type Natriuretic Peptide 48 pg/mL (0-124) Total Protein 8.3 g/dL (6.4-8.2) H Albumin 3.6 g/dL (3.4-5.0) Albumin/Globulin Ratio 0.8 (1.0-1.7) L Lipase 110 U/L (73-393) Laboratory Tests 07/12/19 11:45 Laboratory Tests 07/12/19 11:45 EKG EKG EKG at 1131 shows SVT at a rate of 147 bpm, no ST elevation EKG at 1158 post 6 mg of adenosine shows sinus tachycardia at a rate of 105 bpm, no ST elevation Radiology/Procedures Radiology/Procedures PROCEDURE: CHEST AP ONLY CHEST AP ONLY Clinical Indication: Chest pain Comparison: 07/04/2019 portable chest x-ray. Findings: Portable upright frontal view of the chest was obtained. Device overlies the left lateral mid thoracic level. Evaluation of the left lateral midlung is obscured at this level. The cardiomediastinal silhouette is normal. Pulmonary vasculature is borderline. No focal infiltrate. Interstitial thickening of the lung whittaker is again seen.. There is no pneumothorax. No pleural effusion is appreciated. No acute bone abnormality. [place] sutures involve the left humeral head and neck. IMPRESSION: Borderline pulmonary vasculature. No focal infiltrate. Electronically signed by: Humberto Carnes MD (07/12/2019 12:30 PM) [facility] Course & Med Decision Making Course & Med Decision Making Pertinent Labs and Imaging studies reviewed. (See chart for details) Patient is a 53-year-old male with past medical history of attention, high cholesterol, A. fib, and heart disease who is presenting to the emergency department with 2 hours with chest pain, and 2 days worth right big toe pain. Patient was seen and examined at bedside. Physical exam significant for right first metatarsal phalangeal joint tenderness, erythema, edema. Labs, pain control, imaging studies ordered. EKG at 1131 shows SVT at a rate of 147 bpm, no ST elevation. 6 mg of adenosine given, running EKG showed pause with conversion to sinus tachycardia, patient tolerated well. EKG at 1158 s/p 6 mg of adenosine shows sinus tachycardia at a rate of 105 bpm, no ST elevation. Chest x-ray without acute process. Uric acid elevated, pain addressed with anti-inflammatories, patient will be discharged with anti-inflammatories and should follow up outpatient with his PCP for chronic management of gout. Patient remained in sinus rhythm throughout emergency department stay after adenosine. All other labs at baseline. 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 Patient stable for discharge with outpatient follow-up with PCP/cardiology. Discussed findings and plan with patient and family, who acknowledge understanding and agreement. Dragon Disclaimer Dragon Disclaimer This electronic medical record was generated, in whole or in part, using a voice recognition dictation system. Departure Departure Impression: Primary Impression: SVT (supraventricular tachycardia) Additional Impression: Gout Disposition: HOME, SELF-CARE Condition: STABLE Referrals: LETICIA MACDONALD MD (PCP) DILIP ALFORD MD Patient Instructions: Gout, [id number], Supraventricular Tachycardia, [id number] Scripts Naproxen (NAPROXEN) 375 Mg Tablet 375 MG PO TID, #30 Prov: JUAN DANIEL CARTER DO 07/12/19 The HEART Score for CP Pts HEART Score for Chest Pain: HEART Score for Chest Pain Response (Comments) Value History Slighlty/Non-Suspicious 0 ECG Normal 0 Age >45 - < 65 1 Risk Factors >3 Risk Factors or Hx CAD 2 Troponin < Normal Limit 0 Total 3 Risk Factors: Risk Factors: DM, Current or recent (<one month) smoker, HTN, HLP, family history of CAD, obesity. Risk Scores: Score 0 - 3: 2.5% MACE over next 6 weeks - Discharge Home Score 4 - 6: 20.3% MACE over next 6 weeks - Admit for Clinical Observation Score 7 - 10: 72.7% MACE over next 6 weeks - Early Invasive Strategies Problem Qualifiers Additional Impression: Gout Gout site: unspecified site Gout etiology: unspecified cause Chronicity: acute Qualified Codes: M10.9 - Gout, unspecified JUAN DANIEL CARTER DO Jul 12, 2019 11:48
[2019-07-12] MEDS ORDERED: fentaNYL PF VIAL 100 MCG/2 ML VIAL IV ONE (12:00)
[2019-07-12] MEDS ORDERED: IV NORMAL SALINE 1000ML BAG 1,000 ML IV ONE (12:15)
[2019-07-12] MEDS ORDERED: KETOROLAC 15 MG/ML VIAL. IVP ONE (12:15)
[2019-07-12 12:28] LABS: BASO # 0.1 x10^3/uL (0.0-0.2); BASO % 1 % (0-3); EOS # 0.8 x10^3/uL (0.0-0.7); EOS % 7 % (0-3); HEMATOCRIT 44.4 % (39.0-53.0); HEMOGLOBIN 14.6 g/dL (13.0-17.5); LYMPH # 1.5 x10^3/uL (1.0-4.8); LYMPH % 14 % (24-48); MEAN CORPUSCULAR HEMOGLOBIN 28 pg (25-35); MEAN CORPUSCULAR HGB CONC 33 g/dL (31-37); MEAN CORPUSCULAR VOLUME 85 fL (79-100); MONO # 0.5 x10^3/uL (0.0-1.1); MONO % 4 % (0-9); NEUT # 8.4 x10^3/uL (1.8-7.7); NEUT % 75 % (31-73); PLATELET COUNT 288 x10^3/uL (140-400); RED BLOOD COUNT 5.22 x10^6/uL (4.30-5.70); RED CELL DISTRIBUTION WIDTH 15.5 % (11.5-14.5); WHITE BLOOD COUNT 11.2 x10^3/uL (4.0-11.0)
--- NOTE | 2019-07-12 12:33 | RAD ---
CHEST AP ONLY Clinical Indication: Chest pain Comparison: 07/04/2019 portable chest x-ray. Findings: Portable upright frontal view of the chest was obtained. Device overlies the left lateral mid thoracic level. Evaluation of the left lateral midlung is obscured at this level. The cardiomediastinal silhouette is normal. Pulmonary vasculature is borderline. No focal infiltrate. Interstitial thickening of the lung whittaker is again seen.. There is no pneumothorax. No pleural effusion is appreciated. No acute bone abnormality. [place] sutures involve the left humeral head and neck. IMPRESSION: Borderline pulmonary vasculature. No focal infiltrate. Electronically signed by: Humberto Carnes MD (07/12/2019 12:30 PM) [facility]
[2019-07-12 12:38] LABS: PROTHROMBIN TIME PATIENT 12.7 SEC (11.7-14.0)
[2019-07-12 12:43] LABS: D-DIMER 0.31 ug/mlFEU (0.00-0.50)
[2019-07-12 12:49] LABS: CALCIUM 9.1 mg/dL (8.5-10.1); GFR 78.8
[2019-07-12 12:55] LABS: ALBUMIN 3.6 g/dL (3.4-5.0); ALBUMIN/GLOBULIN RATIO 0.8 (1.0-1.7); MAGNESIUM 1.8 mg/dL (1.8-2.4); TOTAL BILIRUBIN 0.4 mg/dL (0.2-1.0); TOTAL PROTEIN 8.3 g/dL (6.4-8.2)
[2019-07-12] MEDS ORDERED: NAPR-695 PO (12:57)
[2019-07-12 13:00] VITALS: BP 167/97
[2019-07-12 13:04] LABS: CREATINE KINASE 47 U/L (39-308)
--- NOTE | 2019-07-12 13:06 | EKG ---
[facility] [address] [place] [address] Test Date: 2019-07-12 Test Time: 11:31:50 Pat Name: DEVON CHAVARRIA Department: Room: Gender: M Systems Tester: : 1965 Requested By: JUAN DANIEL CARTER Order Number: [id number] Reading MD: Measurements Intervals [place] Rate: 147 P: [place]: QRS: 24 QRSD: 86 T: 28 QT: 280 QTc: 444 Interpretive Statements SUPRAVENTRICULAR TACHYCARDIA NON SPECIFIC ST DEPRESSION BORDERLINE ECG No previous ECG available for comparison
== END 2019-07-12 13:33 | disposition home or self-care (01) ==
LOC: ER 11:22
DX: I47.1 Supraventricular tachycardia (principal); M10.9 Gout, unspecified; M79.674 Pain in right toe(s); I48.91 Unspecified atrial fibrillation; F41.9 Anxiety disorder, unspecified; E10.9 Type 1 diabetes mellitus without complications; E78.00 Pure hypercholesterolemia, unspecified; I11.9 Hypertensive heart disease without heart failure; Z88.8 Allergy status to other drugs, medicaments and biological substances
CPT/HCPCS: 36415; 71045; 80053; 82553; 83690; 83735; 83880; 84484; 84550; 85025; 85379; 85610; 85730; 93005; 96374; 96375; 99285; J0153; J1885; J3010; J7030

== ENCOUNTER 2019-09-12 01:42 | Emergency (ER) | payer MEDICAID ==
[~2019-09-12] VITALS: Ht 175.3 cm; Wt 181.0 kg
[~2019-09-12 01:42] MED LIST changes: +NAPR-695 PO
[2019-09-12 02:28] LABS: BASO # 0.1 x10^3/uL (0.0-0.2); BASO % 1 % (0-3); EOS # 0.5 x10^3/uL (0.0-0.7); EOS % 5 % (0-3); HEMATOCRIT 39.8 % (39.0-53.0); LYMPH # 2.5 x10^3/uL (1.0-4.8); LYMPH % 26 % (24-48); MEAN CORPUSCULAR HEMOGLOBIN 30 pg (25-35); MEAN CORPUSCULAR HGB CONC 35 g/dL (31-37); MEAN CORPUSCULAR VOLUME 85 fL (79-100); MONO # 0.6 x10^3/uL (0.0-1.1); MONO % 6 % (0-9); NEUT # 6.1 x10^3/uL (1.8-7.7); NEUT % 63 % (31-73); PLATELET COUNT 282 x10^3/uL (140-400); RED BLOOD COUNT 4.68 x10^6/uL (4.30-5.70); RED CELL DISTRIBUTION WIDTH 16.1 % (11.5-14.5); WHITE BLOOD COUNT 9.7 x10^3/uL (4.0-11.0)
[2019-09-12] MEDS ORDERED: ASPIRIN CHEWABLE 81 MG TABLET. PO ONE (02:30)
[2019-09-12] MEDS ORDERED: dilTIAZem IV PUSH 25 MG/5 ML VIAL IVP ONE (02:30)
[2019-09-12 02:42] LABS: CALCIUM 9.2 mg/dL (8.5-10.1); CREATININE 1.2 mg/dL (0.7-1.3); GFR 63.6; POTASSIUM 4.1 mmol/L (3.5-5.1)
[2019-09-12 02:48] LABS: ALBUMIN 3.3 g/dL (3.4-5.0); ALBUMIN/GLOBULIN RATIO 0.8 (1.0-1.7); MAGNESIUM 1.7 mg/dL (1.8-2.4); TOTAL BILIRUBIN 0.2 mg/dL (0.2-1.0); TOTAL PROTEIN 7.2 g/dL (6.4-8.2)
--- NOTE | 2019-09-12 02:54 | RAD ---
PORTABLE CHEST 1V History: Chest pain Comparison: July 12, 2019 Findings: Left basilar linear atelectasis. No consolidation or pleural effusion. Normal heart size. No pneumothorax. Impression: 1. No acute cardiopulmonary process. Electronically signed by: Mohit Velasquez DO (09/12/2019 2:51 AM) [id number]
--- NOTE | 2019-09-12 03:17 | EKG ---
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
--- NOTE | 2019-09-12 03:23 | PHYS DOC ---
Past Medical History Past Medical History: A-Fib, Anxiety, Cancer, Diabetes-Type I, High Cholesterol, Hypertension, Other Additional Past Medical Histor: PROSTATE CA,A-FIB/RVR Past Surgical History: Tonsillectomy, Other Additional Past Surgical Histo: thyroidectomy, left shoulder Smoking Status: Former Smoker Alcohol Use: None Drug Use: None Adult General Chief Complaint Chief Complaint: RAPID HEART RATE HPI HPI Patient is a 54 year old male who presents with complaint of palpitations, feeling like his heart rate is too fast. Patient indicates that he has a history of A. fib as well as SVT. He also indicates he has some tightness in his chest. He denies any nausea, vomiting or diaphoresis. He states the tightness in his chest is worsened with deep breathing.[] Review of Systems Review of Systems Constitutional: Denies fever or chills [] Respiratory: Complains of shortness of breath [] Cardiovascular: No additional information not addressed in HPI [] GI: Denies abdominal pain, nausea, vomiting or diarrhea [] Integument: Denies rash or skin lesions [] Neurologic: Denies headache, focal weakness or sensory changes [] All other systems were reviewed and found to be within normal limits, except as documented in this note. Current Medications Current Medications Current Medications Medications (Trade) Dose Ordered Sig/Jessy Start Time Stop Time Status Last Admin Dose Admin Aspirin (Children'S Aspirin) 324 mg 1X ONCE 09/12/19 02:30 09/12/19 02:31 DC 09/12/19 02:16 324 MG Diltiazem HCl (Cardizem Iv Push) 10 mg 1X ONCE 09/12/19 02:30 09/12/19 02:31 DC 09/12/19 02:17 10 MG Allergies Allergies Allergies Coded Allergies Type Severity Reaction Last Updated Verified meperidine Allergy Severe Shortness of Air 10/12/14 No Physical Exam Physical Exam Constitutional: Well developed, well nourished, no acute distress, non-toxic appearance. [] HENT: Normocephalic, atraumatic, bilateral external ears normal, oropharynx moist, no oral exudates, nose normal. [] Eyes: PERRLA, EOMI, conjunctiva normal, no discharge. [] Neck: Normal range of motion, no tenderness, supple, no stridor. [] Cardiovascular: Markedly tachycardic rate with regular rhythm[] Lungs & Thorax: Bilateral breath sounds clear to auscultation [] Abdomen: Bowel sounds normal, soft, no tenderness. [] Skin: Warm, dry, no erythema, no rash. [] Extremities: No tenderness, no cyanosis, no clubbing, ROM intact. [] Neurologic: Alert and oriented X 3, no focal deficits noted. [] Current Patient Data Vital Signs Vital Signs Date Time Temp Pulse Resp B/P (MAP) Pulse Ox O2 Delivery O2 Flow Rate FiO2 09/12/19 02:32 98.6 135 20 143/79 (100) 96 Room Air 98.6 Lab Values Laboratory Tests Test 09/12/19 02:14 White Blood Count 9.7 x10^3/uL (4.0-11.0) Red Blood Count 4.68 x10^6/uL (4.30-5.70) Hemoglobin 14.0 g/dL (13.0-17.5) Hematocrit 39.8 % (39.0-53.0) Mean Corpuscular Volume 85 fL (79-100) Mean Corpuscular Hemoglobin 30 pg (25-35) Mean Corpuscular Hemoglobin Concent 35 g/dL (31-37) Red Cell Distribution Width 16.1 % (11.5-14.5) H Platelet Count 282 x10^3/uL (140-400) Neutrophils (%) (Auto) 63 % (31-73) Lymphocytes (%) (Auto) 26 % (24-48) Monocytes (%) (Auto) 6 % (0-9) Eosinophils (%) (Auto) 5 % (0-3) H Basophils (%) (Auto) 1 % (0-3) Neutrophils # (Auto) 6.1 x10^3/uL (1.8-7.7) Lymphocytes # (Auto) 2.5 x10^3/uL (1.0-4.8) Monocytes # (Auto) 0.6 x10^3/uL (0.0-1.1) Eosinophils # (Auto) 0.5 x10^3/uL (0.0-0.7) Basophils # (Auto) 0.1 x10^3/uL (0.0-0.2) Sodium Level 141 mmol/L (136-145) Potassium Level 4.1 mmol/L (3.5-5.1) Chloride Level 102 mmol/L (98-107) Carbon Dioxide Level 31 mmol/L (21-32) Anion Gap 8 (6-14) Blood Urea Nitrogen 18 mg/dL (8-26) Creatinine 1.2 mg/dL (0.7-1.3) Estimated GFR (Cockcroft-Gault) 63.6 BUN/Creatinine Ratio 15 (6-20) Glucose Level 119 mg/dL (70-99) H Calcium Level 9.2 mg/dL (8.5-10.1) Magnesium Level 1.7 mg/dL (1.8-2.4) L Total Bilirubin 0.2 mg/dL (0.2-1.0) Aspartate Amino Transferase (AST) 18 U/L (15-37) Alanine Aminotransferase (ALT) 35 U/L (16-63) Alkaline Phosphatase 85 U/L (46-116) Troponin I Quantitative < 0.017 ng/mL (0.000-0.055) GD-Uif-C-Type Natriuretic Peptide 52 pg/mL (0-124) Total Protein 7.2 g/dL (6.4-8.2) Albumin 3.3 g/dL (3.4-5.0) L Albumin/Globulin Ratio 0.8 (1.0-1.7) L Thyroid Stimulating Hormone (TSH) 8.036 uIU/mL (0.358-3.74) H Laboratory Tests 09/12/19 02:14 Laboratory Tests 09/12/19 02:14 EKG EKG EKG demonstrates supraventricular tachyarrhythmia with rate of 135.[] Radiology/Procedures Radiology/Procedures [] Impressions: PROCEDURE: PORTABLE CHEST 1V PORTABLE CHEST 1V History: Chest pain Comparison: July 12, 2019 Findings: Left basilar linear atelectasis. No consolidation or pleural effusion. Normal heart size. No pneumothorax. Impression: 1. No acute cardiopulmonary process. Electronically signed by: Mohit Velasquez DO (09/12/2019 2:51 AM) [id number] Course & Med Decision Making Course & Med Decision Making Pertinent Labs and Imaging studies reviewed. (See chart for details) [] Dragon Disclaimer Dragon Disclaimer This electronic medical record was generated, in whole or in part, using a voice recognition dictation system. Departure Departure Impression: Primary Impression: SVT (supraventricular tachycardia) Disposition: HOME, SELF-CARE Condition: STABLE Referrals: LETICIA MACDONALD MD (PCP) Patient Instructions: Supraventricular Tachycardia GILES CINTRON Jr. DO Sep 12, 2019 03:23
[2019-09-12 03:45] VITALS: BP 126/75
== END 2019-09-12 03:49 | disposition home or self-care (01) ==
LOC: ER 01:42
DX: I47.1 Supraventricular tachycardia (principal); R07.89 Other chest pain; R06.02 Shortness of breath; I48.91 Unspecified atrial fibrillation; F41.9 Anxiety disorder, unspecified; E10.9 Type 1 diabetes mellitus without complications; E78.00 Pure hypercholesterolemia, unspecified; I10 Essential (primary) hypertension; Z87.891 Personal history of nicotine dependence; Z88.5 Allergy status to narcotic agent
CPT/HCPCS: 36415; 71045; 80053; 83735; 83880; 84443; 84484; 85025; 93005; 96374; 99285; J3490

== ENCOUNTER 2019-12-02 13:48 | Emergency (ER) | payer MEDICAID ==
[~2019-12-02] VITALS: Ht 167.6 cm; Wt 186.8 kg
[2019-12-02] MEDS ORDERED: dilTIAZem IV PUSH 25 MG/5 ML VIAL IVP ONE (14:15)
[2019-12-02] MEDS ORDERED: ASPIRIN CHEWABLE 81 MG TABLET. PO ONE (14:15)
[2019-12-02 14:19] LABS: BASO # 0.1 x10^3/uL (0.0-0.2); BASO % 1 % (0-3); EOS # 0.8 x10^3/uL (0.0-0.7); EOS % 10 % (0-3); HEMATOCRIT 42.6 % (39.0-53.0); HEMOGLOBIN 14.1 g/dL (13.0-17.5); LYMPH # 1.4 x10^3/uL (1.0-4.8); LYMPH % 17 % (24-48); MEAN CORPUSCULAR HEMOGLOBIN 29 pg (25-35); MEAN CORPUSCULAR HGB CONC 33 g/dL (31-37); MEAN CORPUSCULAR VOLUME 86 fL (79-100); MONO # 0.4 x10^3/uL (0.0-1.1); MONO % 5 % (0-9); NEUT # 5.6 x10^3/uL (1.8-7.7); NEUT % 67 % (31-73); PLATELET COUNT 278 x10^3/uL (140-400); RED BLOOD COUNT 4.93 x10^6/uL (4.30-5.70); WHITE BLOOD COUNT 8.3 x10^3/uL (4.0-11.0)
[2019-12-02 14:22] LABS: BILIRUBIN,URINE NEGATIVE (NEG); CLARITY,URINE CLEAR; NITRITE,URINE NEGATIVE (NEG); PH,URINE 5.5 (<5.0-8.0); PROTEIN,URINE NEGATIVE (NEG-TRACE); UROBILINOGEN,URINE 0.2 mg/dL (0.2 mg/dL)
[2019-12-02 14:28] LABS: BARBITURATES NEG (NEG); BENZODIAZEPINES NEG (NEG); CANNABINOIDS NEG (NEG); COCAINE NEG (NEG); METHADONE NEG (NEG); OPIATES NEG (NEG); PHENCYCLIDINE NEG (NEG)
[2019-12-02 14:29] LABS: COLOR,URINE STRAW
[2019-12-02 14:30] LABS: AMPHETAMINE/METHAMPHETAMINE NEG (NEG); BACTERIA,URINE 0 /HPF (0-FEW); RBC,URINE 0 /HPF (0-2); WBC,URINE 0 /HPF (0-4)
--- NOTE | 2019-12-02 14:30 | RAD ---
CHEST AP ONLY History: Chest pain. Comparison: September 12, 2019. FINDINGS: The cardiomediastinal silhouette is unchanged. Low lung volumes. No evidence of pneumothorax. No pleural effusion. No focal infiltrate. Bones appear intact. Postsurgical anchor screw seen about the left shoulder. IMPRESSION: Stable exam, no evidence of consolidating infiltrate. Electronically signed by: Jay Barraza MD (12/02/2019 2:27 PM) [id number]
[2019-12-02 14:54] LABS: CALCIUM 8.6 mg/dL (8.5-10.1); CREATININE 1.1 mg/dL (0.7-1.3); GFR 70.3
[2019-12-02 14:56] VITALS: BP 132/60
[2019-12-02 14:59] LABS: ALBUMIN 3.3 g/dL (3.4-5.0); ALBUMIN/GLOBULIN RATIO 0.8 (1.0-1.7); MAGNESIUM 1.6 mg/dL (1.8-2.4); TOTAL BILIRUBIN 0.4 mg/dL (0.2-1.0); TOTAL PROTEIN 7.4 g/dL (6.4-8.2)
--- NOTE | 2019-12-02 15:12 | EKG ---
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
--- NOTE | 2019-12-02 15:12 | PHYS DOC ---
Past Medical History Past Medical History: A-Fib, Anxiety, Cancer, Diabetes-Type I, High Cholesterol, Hypertension, Other Additional Past Medical Histor: PROSTATE CA,A-FIB/RVR Past Surgical History: Tonsillectomy, Other Additional Past Surgical Histo: thyroidectomy, left shoulder Smoking Status: Former Smoker Alcohol Use: None Drug Use: None General Adult EDM: Chief Complaint: CHEST PAIN HPI: HPI: Patient is a 54-year-old male who is generally unhealthy with morbid obesity atrial fibrillation and other medical ailments who presents with chest disco mfort and rapid heartbeat. He states this started several hours ago. He states occasionally he will get the rapid heartbeat and will go away this 1 lasted a little longer. He says with the rapid heart rate he is short of breath. He did start a new medicine recently which is Keflex. He denies any diaphoresis he denies fever chills sweats nausea vomiting or diarrhea. [] Review of Systems: Review of Systems: Constitutional: Denies fever or chills. [] Eyes: Denies change in visual acuity. [] HENT: Denies nasal congestion or sore throat. [] Respiratory: Denies cough or shortness of breath. [] Cardiovascular: Per HPI [] GI: Denies abdominal pain, nausea, vomiting, bloody stools or diarrhea. [] : Denies dysuria. [] Musculoskeletal: Denies back pain or joint pain. [] Integument: Denies rash. [] Neurologic: Denies headache, focal weakness or sensory changes. [] Endocrine: Denies polyuria or polydipsia. [] Lymphatic: Denies swollen glands. [] Psychiatric: Denies depression or anxiety. [] Heart Score: Risk Factors: Risk Factors: DM, Current or recent (<one month) smoker, HTN, HLP, family history of CAD, obesity. Risk Scores: Score 0 - 3: 2.5% MACE over next 6 weeks - Discharge Home Score 4 - 6: 20.3% MACE over next 6 weeks - Admit for Clinical Observation Score 7 - 10: 72.7% MACE over next 6 weeks - Early Invasive Strategies Current Medications: Current Medications Medications (Trade) Dose Ordered Sig/Jessy Start Time Stop Time Status Last Admin Dose Admin Aspirin (Aspirin Chewable) 324 mg 1X ONCE 12/02/19 14:15 5/21/20 14:16 DC 12/02/19 14:15 324 MG Diltiazem HCl (Cardizem Iv Push) 20 mg 1X ONCE 12/02/19 14:15 12/02/19 14:16 DC 12/02/19 14:16 20 MG Allergies: Allergies: Allergies Coded Allergies Type Severity Reaction Last Updated Verified meperidine Allergy Severe Shortness of Air 10/12/14 No Physical Exam: PE: Constitutional: Well developed, well nourished, no acute distress, non-toxic appearance. [] HENT: Normocephalic, atraumatic, bilateral external ears normal, oropharynx moist, no oral exudates, nose normal. [] Eyes: PERRLA, EOMI, conjunctiva normal, no discharge. [] Neck: Normal range of motion, no tenderness, supple, no stridor. [] Cardiovascular: Tachycardia [] Lungs & Thorax: Bilateral breath sounds clear to auscultation [] Abdomen: Morbid obesity bowel sounds normal, soft, no tenderness, no masses, no pulsatile masses. [] Skin: Warm, dry, no erythema, no rash. [] Back: No tenderness, no CVA tenderness. [] Extremities: No tenderness, no cyanosis, no clubbing, ROM intact, no edema. [] Neurologic: Alert and oriented X 3, normal motor function, normal sensory function, no focal deficits noted. [] Psychologic: Anxious l. [] Current Patient Data: Labs: Laboratory Tests Test 12/02/19 14:00 White Blood Count 8.3 x10^3/uL (4.0-11.0) Red Blood Count 4.93 x10^6/uL (4.30-5.70) Hemoglobin 14.1 g/dL (13.0-17.5) Hematocrit 42.6 % (39.0-53.0) Mean Corpuscular Volume 86 fL (79-100) Mean Corpuscular Hemoglobin 29 pg (25-35) Mean Corpuscular Hemoglobin Concent 33 g/dL (31-37) Red Cell Distribution Width 15.0 % (11.5-14.5) H Platelet Count 278 x10^3/uL (140-400) Neutrophils (%) (Auto) 67 % (31-73) Lymphocytes (%) (Auto) 17 % (24-48) L Monocytes (%) (Auto) 5 % (0-9) Eosinophils (%) (Auto) 10 % (0-3) H Basophils (%) (Auto) 1 % (0-3) Neutrophils # (Auto) 5.6 x10^3/uL (1.8-7.7) Lymphocytes # (Auto) 1.4 x10^3/uL (1.0-4.8) Monocytes # (Auto) 0.4 x10^3/uL (0.0-1.1) Eosinophils # (Auto) 0.8 x10^3/uL (0.0-0.7) H Basophils # (Auto) 0.1 x10^3/uL (0.0-0.2) D-Dimer (Maria Luz) < 0.27 ug/mlFEU Urine Collection Type Unknown Urine Color Straw Urine Clarity Clear Urine pH 5.5 (<5.0-8.0) Urine Specific [place] <=1.005 (1.000-1.030) Urine Protein Negative mg/dL (NEG-TRACE) Urine Glucose (UA) Negative mg/dL (NEG) Urine Ketones (Stick) Negative mg/dL (NEG) Urine Blood Negative (NEG) Urine Nitrite Negative (NEG) Urine Bilirubin Negative (NEG) Urine Urobilinogen Dipstick 0.2 mg/dL (0.2 mg/dL) Urine Leukocyte Esterase Negative (NEG) Urine RBC 0 /HPF (0-2) Urine WBC 0 /HPF (0-4) Urine Squamous Epithelial Cells None /LPF Urine Bacteria 0 /HPF (0-FEW) Urine Mucus Slight /LPF Sodium Level 140 mmol/L (136-145) Potassium Level 4.0 mmol/L (3.5-5.1) Chloride Level 101 mmol/L (98-107) Carbon Dioxide Level 33 mmol/L (21-32) H Anion Gap 6 (6-14) Blood Urea Nitrogen 20 mg/dL (8-26) Creatinine 1.1 mg/dL (0.7-1.3) Estimated GFR (Cockcroft-Gault) 70.3 BUN/Creatinine Ratio 18 (6-20) Glucose Level 163 mg/dL (70-99) H Calcium Level 8.6 mg/dL (8.5-10.1) Magnesium Level 1.6 mg/dL (1.8-2.4) L Total Bilirubin 0.4 mg/dL (0.2-1.0) Aspartate Amino Transferase (AST) 30 U/L (15-37) Alanine Aminotransferase (ALT) 52 U/L (16-63) Alkaline Phosphatase 92 U/L (46-116) Troponin I Quantitative < 0.017 ng/mL (0.000-0.055) FJ-Urt-V-Type Natriuretic Peptide 49 pg/mL (0-124) Total Protein 7.4 g/dL (6.4-8.2) Albumin 3.3 g/dL (3.4-5.0) L Albumin/Globulin Ratio 0.8 (1.0-1.7) L Urine Opiates Screen Neg (NEG) Urine Methadone Screen Neg (NEG) Urine Barbiturates Neg (NEG) Urine Phencyclidine Screen Neg (NEG) Urine Amphetamine/Methamphetamine Neg (NEG) Urine Benzodiazepines Screen Neg (NEG) Urine Cocaine Screen Neg (NEG) Urine Cannabinoids Screen Neg (NEG) Urine Ethyl Alcohol Neg (NEG) Laboratory Tests 12/02/19 14:00 Laboratory Tests 12/02/19 14:00 Vital Signs: Vital Signs Date Time Temp Pulse Resp B/P (MAP) Pulse Ox O2 Delivery O2 Flow Rate FiO2 12/02/19 14:16 148 139/70 12/02/19 14:02 97.9 22 94 Room Air 97.9 EKG: EKG: EKG: Atrial flutter 2-1 rate of [address]-T changes [] Radiology/Procedures: Radiology/Procedures: [] Impression: PROCEDURE: CHEST AP ONLY CHEST AP ONLY History: Chest pain. Comparison: September 12, 2019. FINDINGS: The cardiomediastinal silhouette is unchanged. Low lung volumes. No evidence of pneumothorax. No pleural effusion. No focal infiltrate. Bones appear intact. Postsurgical anchor screw seen about the left shoulder. IMPRESSION: Stable exam, no evidence of consolidating infiltrate. Course & Med Decision Making: Course & Med Decision Making Pertinent Labs and Imaging studies reviewed. (See chart for details) [ED course: Evaluation reveals a 54-year-old male with a flutter rate of 150 was given Cardizem 20 mg IV during his stay in the department which converted him back to a normal sinus rhythm rate in the 70s and completely alleviated his symptoms. He was also given baby aspirin. He does report to me that he has an appointment with bulking machine operator after he gets his echocardiogram done within the next several days. Patient is safe for discharge home at this time.] Christiano Disclaimer: Dragon Disclaimer: This electronic medical record was generated, in whole or in part, using a voice recognition dictation system. Departure Departure Impression: Primary Impression: Atrial flutter with rapid ventricular response Disposition: HOME, SELF-CARE Condition: IMPROVED Referrals: LETICIA MACDONALD MD (PCP) Patient Instructions: Atrial Flutter Additional Instructions: It is very important that you keep an appointment with your bulking machine operator. Return to the emergency department if your symptoms recur or any new or concerning symptoms develop. GEOVANNY WOODY DO December 02, 2019 15:12
== END 2019-12-02 15:23 | disposition home or self-care (01) ==
LOC: ER 13:48
DX: I48.92 Unspecified atrial flutter (principal); R07.89 Other chest pain; I48.20 Chronic atrial fibrillation, unspecified; E10.9 Type 1 diabetes mellitus without complications; E78.00 Pure hypercholesterolemia, unspecified; I10 Essential (primary) hypertension; F41.9 Anxiety disorder, unspecified; Z87.891 Personal history of nicotine dependence; E66.01 Morbid (severe) obesity due to excess calories; Z68.44 Body mass index [BMI] 60.0-69.9, adult; Z88.1 Allergy status to other antibiotic agents
CPT/HCPCS: 36415; 71045; 80053; 80307; 81001; 83735; 83880; 84484; 85025; 85379; 93005; 96374; 99285; J3490

== ENCOUNTER 2020-01-11 08:22 | Emergency (ER) | payer MEDICAID ==
[~2020-01-11] VITALS: Ht 167.6 cm; Wt 193.7 kg
[2020-01-11] MEDS ORDERED: ADENOSINE 6 MG/2 ML VIAL. IV ONE ×2 (08:37→08:45)
[2020-01-11 08:47] LABS: BASO # 0.1 x10^3/uL (0.0-0.2); BASO % 1 % (0-3); EOS # 1.4 x10^3/uL (0.0-0.7); EOS % 15 % (0-3); HEMOGLOBIN 13.6 g/dL (13.0-17.5); LYMPH # 2.3 x10^3/uL (1.0-4.8); LYMPH % 24 % (24-48); MEAN CORPUSCULAR HEMOGLOBIN 29 pg (25-35); MEAN CORPUSCULAR HGB CONC 33 g/dL (31-37); MEAN CORPUSCULAR VOLUME 86 fL (79-100); MONO # 0.4 x10^3/uL (0.0-1.1); MONO % 4 % (0-9); NEUT # 5.2 x10^3/uL (1.8-7.7); NEUT % 56 % (31-73); PLATELET COUNT 293 x10^3/uL (140-400); RED BLOOD COUNT 4.75 x10^6/uL (4.30-5.70); RED CELL DISTRIBUTION WIDTH 15.4 % (11.5-14.5); WHITE BLOOD COUNT 9.3 x10^3/uL (4.0-11.0)
--- NOTE | 2020-01-11 08:51 | RAD ---
Examination: PORTABLE CHEST 1V History: Reason: chest pain / Spl. Instructions: / History: Comparison/Correlation: 12/02/2019 AP view of the chest Findings: Upright portable frontal view chest was obtained. Heart size and pulmonary vessels are normal. No infiltrate or pleural effusion. No pneumothorax. [place]off[place] sutures involving the left femoral head. Bony structures unremarkable. Impression: No active disease. Electronically signed by: Humberto Carnes MD (01/11/2020 8:48 AM) [id number]
[2020-01-11 09:26] LABS: CALCIUM 9.4 mg/dL (8.5-10.1); CREATININE 1.2 mg/dL (0.7-1.3); GFR 63.6; POTASSIUM 4.2 mmol/L (3.5-5.1)
[2020-01-11 09:27] LABS: BILIRUBIN,URINE NEGATIVE (NEG); CLARITY,URINE CLEAR; COLOR,URINE YELLOW; NITRITE,URINE NEGATIVE (NEG); PH,URINE 5.5 (<5.0-8.0); PROTEIN,URINE NEGATIVE (NEG-TRACE); UROBILINOGEN,URINE 0.2 mg/dL (0.2 mg/dL)
[2020-01-11 09:34] LABS: ALBUMIN 3.5 g/dL (3.4-5.0); ALBUMIN/GLOBULIN RATIO 0.9 (1.0-1.7); MAGNESIUM 2.1 mg/dL (1.8-2.4); TOTAL BILIRUBIN 0.3 mg/dL (0.2-1.0); TOTAL PROTEIN 7.6 g/dL (6.4-8.2)
[2020-01-11 09:36] LABS: BACTERIA,URINE 0 /HPF (0-FEW); HYALINE CASTS, URINE FEW /HPF; RBC,URINE 0 /HPF (0-2); SQUAMOUS EPITHELIAL CELL,UR OCC /LPF; WBC,URINE OCC /HPF (0-4)
[2020-01-11 09:39] LABS: FREE T4 0.98 ng/dL (0.76-1.46); THYROID STIM HORMONE (TSH) 6.048 uIU/mL (0.358-3.74)
[2020-01-11 09:51] LABS: % EOS 13 % (0-5); % LYMPHS 24 % (24-48); % MONOS 7 % (0-10); % SEGS 56 % (35-66)
[2020-01-11 09:52] LABS: PLT ESTIMATE ADEQUATE (ADEQUATE)
--- NOTE | 2020-01-11 09:53 | EKG ---
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
--- NOTE | 2020-01-11 09:53 | EKG ---
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
--- NOTE | 2020-01-11 10:28 | PHYS DOC ---
Past Medical History Past Medical History: A-Fib, Anxiety, Cancer, Diabetes-Type I, High Cholesterol, Hypertension, Other Additional Past Medical Histor: PROSTATE CA,A-FIB/RVR Past Surgical History: Tonsillectomy, Other Additional Past Surgical Histo: thyroidectomy, left shoulder Smoking Status: Former Smoker Alcohol Use: None Drug Use: None General Adult EDM: Chief Complaint: RAPID HEART RATE HPI: HPI: Patient is a 54 year old male who presented to ER today for evaluation heart palpitation when he woke up this morning. Patient has history of SVT in the past, he has been in and out of the ER here several times for the same problem. Patient has history of thyroid problem, he had missed several doses of thyroid medication this week. Patient said he was asleep this morning when he woke up with heart palpitation. Patient denies any chest pain, no trouble breathing, no cough, no fever. Patient is scheduled to see his polystyrene bead molder tomorrow. Review of Systems: Review of Systems: Constitutional: Denies fever or chills. [] Eyes: Denies change in visual acuity. [] HENT: Denies nasal congestion or sore throat. [] Respiratory: Denies cough or shortness of breath. [] Cardiovascular: Positive for heart palpitation, no chest pain. GI: Denies abdominal pain, nausea, vomiting, bloody stools or diarrhea. [] : Denies dysuria. [] Musculoskeletal: Denies back pain or joint pain. [] Integument: Denies rash. [] Neurologic: Denies headache, focal weakness or sensory changes. [] Endocrine: Denies polyuria or polydipsia. [] Lymphatic: Denies swollen glands. [] Psychiatric: Denies depression or anxiety. [] Heart Score: Risk Factors: Risk Factors: DM, Current or recent (<one month) smoker, HTN, HLP, family history of CAD, obesity. Risk Scores: Score 0 - 3: 2.5% MACE over next 6 weeks - Discharge Home Score 4 - 6: 20.3% MACE over next 6 weeks - Admit for Clinical Observation Score 7 - 10: 72.7% MACE over next 6 weeks - Early Invasive Strategies Current Medications: Current Medications Medications (Trade) Dose Ordered Sig/Jessy Start Time Stop Time Status Last Admin Dose Admin Adenosine (Adenocard) 6 mg STK-MED ONCE 01/11/20 08:37 01/11/20 08:37 DC Allergies: Allergies: Allergies Coded Allergies Type Severity Reaction Last Updated Verified meperidine Allergy Severe Shortness of Air 10/12/14 No Physical Exam: PE: Constitutional: Well developed, well nourished, no acute distress, non-toxic appearance. [] HENT: Normocephalic, atraumatic, bilateral external ears normal, oropharynx moist, no oral exudates, nose normal. [] Eyes: PERRLA, EOMI, conjunctiva normal, no discharge. [] Neck: Normal range of motion, no tenderness, supple, no stridor. [] Cardiovascular: Rapid heart rate, no murmur. Lungs & Thorax: Bilateral breath sounds clear to auscultation [] Abdomen: Bowel sounds normal, soft, no tenderness, no masses, no pulsatile ma sses. [] Skin: Warm, dry, no erythema, no rash. [] Back: No tenderness, no CVA tenderness. [] Extremities: No tenderness, no cyanosis, no clubbing, ROM intact, no edema. [] Neurologic: Alert and oriented X 3, normal motor function, normal sensory function, no focal deficits noted. [] Psychologic: Affect normal, judgement normal, mood normal. [] Current Patient Data: Labs: Laboratory Tests Test 01/11/20 08:37 01/11/20 09:10 White Blood Count 9.3 x10^3/uL (4.0-11.0) Red Blood Count 4.75 x10^6/uL (4.30-5.70) Hemoglobin 13.6 g/dL (13.0-17.5) Hematocrit 41.0 % (39.0-53.0) Mean Corpuscular Volume 86 fL (79-100) Mean Corpuscular Hemoglobin 29 pg (25-35) Mean Corpuscular Hemoglobin Concent 33 g/dL (31-37) Red Cell Distribution Width 15.4 % (11.5-14.5) H Platelet Count 293 x10^3/uL (140-400) Neutrophils (%) (Auto) 56 % (31-73) Lymphocytes (%) (Auto) 24 % (24-48) Monocytes (%) (Auto) 4 % (0-9) Eosinophils (%) (Auto) 15 % (0-3) H Basophils (%) (Auto) 1 % (0-3) Neutrophils # (Auto) 5.2 x10^3/uL (1.8-7.7) Lymphocytes # (Auto) 2.3 x10^3/uL (1.0-4.8) Monocytes # (Auto) 0.4 x10^3/uL (0.0-1.1) Eosinophils # (Auto) 1.4 x10^3/uL (0.0-0.7) H Basophils # (Auto) 0.1 x10^3/uL (0.0-0.2) Segmented Neutrophils % 56 % (35-66) Lymphocytes % 24 % (24-48) Monocytes % 7 % (0-10) Eosinophils % 13 % (0-5) H Platelet Estimate Adequate (ADEQUATE) Basophilic Stippling Present Prothrombin Time 12.0 SEC (11.7-14.0) Prothrombin Time INR 0.9 (0.8-1.1) Sodium Level 140 mmol/L (136-145) Potassium Level 4.2 mmol/L (3.5-5.1) Chloride Level 99 mmol/L (98-107) Carbon Dioxide Level 32 mmol/L (21-32) Anion Gap 9 (6-14) Blood Urea Nitrogen 21 mg/dL (8-26) Creatinine 1.2 mg/dL (0.7-1.3) Estimated GFR (Cockcroft-Gault) 63.6 BUN/Creatinine Ratio 18 (6-20) Glucose Level 142 mg/dL (70-99) H Calcium Level 9.4 mg/dL (8.5-10.1) Magnesium Level 2.1 mg/dL (1.8-2.4) Total Bilirubin 0.3 mg/dL (0.2-1.0) Aspartate Amino Transferase (AST) 19 U/L (15-37) Alanine Aminotransferase (ALT) 33 U/L (16-63) Alkaline Phosphatase 88 U/L (46-116) Troponin I Quantitative < 0.017 ng/mL (0.000-0.055) LI-Wrm-Q-Type Natriuretic Peptide 23 pg/mL (0-124) Total Protein 7.6 g/dL (6.4-8.2) Albumin 3.5 g/dL (3.4-5.0) Albumin/Globulin Ratio 0.9 (1.0-1.7) L Lipase 176 U/L (73-393) Thyroid Stimulating Hormone (TSH) 6.048 uIU/mL (0.358-3.74) H Free Thyroxine 0.98 ng/dL (0.76-1.46) Urine Collection Type Void Urine Color Yellow Urine Clarity Clear Urine pH 5.5 (<5.0-8.0) Urine Specific [place] 1.010 (1.000-1.030) Urine Protein Negative mg/dL (NEG-TRACE) Urine Glucose (UA) Negative mg/dL (NEG) Urine Ketones (Stick) Negative mg/dL (NEG) Urine Blood Negative (NEG) Urine Nitrite Negative (NEG) Urine Bilirubin Negative (NEG) Urine Urobilinogen Dipstick 0.2 mg/dL (0.2 mg/dL) Urine Leukocyte Esterase Negative (NEG) Urine RBC 0 /HPF (0-2) Urine WBC Occ /HPF (0-4) Urine Squamous Epithelial Cells Occ /LPF Urine Bacteria 0 /HPF (0-FEW) Urine Hyaline Casts Few /HPF Urine Mucus Slight /LPF Laboratory Tests 01/11/20 08:37 Laboratory Tests 01/11/20 08:37 Vital Signs: Vital Signs Date Time Temp Pulse Resp B/P (MAP) Pulse Ox O2 Delivery O2 Flow Rate FiO2 01/11/20 09:45 92 19 96 01/11/20 08:25 97.8 118/82 (94) Room Air 97.8 EKG: EKG: EKG WAS DONE AT 0831, RATE OF 147 BPM, SVT, NO STEMI, SECOND EKG WAS DONE AT 0846 after the IV BOLUS of Adenosine, rate of 94 BPM, NO STEMI. Radiology/Procedures: Radiology/Procedures: [facility] [address] [place] [address] IMAGING REPORT Signed PATIENT: DEVON CHAVARRIA ACCOUNT: [id number] : 1965 LOCATION: ER AGE: 54 SEX: M EXAM STATUS: REG ER ORD. PHYSICIAN: DWAINE VILLALOBOS DO REASON: chest pain PROCEDURE: PORTABLE CHEST 1V Examination: PORTABLE CHEST 1V History: Reason: chest pain / Spl. Instructions: / History: Comparison/Correlation: 12/02/2019 AP view of the chest Findings: Upright portable frontal view chest was obtained. Heart size and pulmonary vessels are normal. No infiltrate or pleural effusion. No pneumothorax. [place] sutures involving the left femoral head. Bony structures unremarkable. Impression: No active disease. Electronically signed by: Humberto Yousif MD (01/11/2020 8:48 AM) [id number] DICTATED and SIGNED BY: HMUBERTO YOUSIF MD DATE: 01/11/20 0848 Course & Med Decision Making: Course & Med Decision Making Pertinent Labs and Imaging studies reviewed. (See chart for details) Patient is a 54-year-old male who was evaluated in the ER due to rapid heart rate, consistent with SVT. Patient was given significant adenosine IV bolus, his heart rhythm returned back to normal sinus rhythm. Discussed with FUNERAL SERVICE PRACTITIONER/EMBALMER polystyrene bead molder will arrange for echocardiogram today, patient will be seen by the polystyrene bead molder in the morning at 9:15 AM Dragon Disclaimer: Dragon Disclaimer: This electronic medical record was generated, in whole or in part, using a voice recognition dictation system. Departure Departure Impression: Primary Impression: SVT (supraventricular tachycardia) Disposition: HOME, SELF-CARE Condition: IMPROVED Referrals: LETICIA MACDONALD MD (PCP) SALOME CHICAS MD follow up with Dr. Chicas at 915 am tomorrow. Patient Instructions: Supraventricular Tachycardia Additional Instructions: PLEASE GO TO CARDIAC CENTER TODAY TO HAVE ECHOCARDIOGRAM DONE. Justicifation of Admission Dx: Justifications for Admission: Justification of Admission Dx: N/A DWAINE VILLALOBOS DO Jan 11, 2020 10:28
[2020-01-11 10:45] VITALS: BP 122/62
[2020-01-11] MEDS ORDERED: PERFLUTREN PROTEIN-A MICROSPHR 0.22 MG/ML 3 ML VIAL. IV ONE ×2 (12:06→13:00)
--- NOTE | 2020-01-11 15:51 | CARD ---
MR#: [id number] Date of Study: 01/11/2020 Ordering Physician: DILIP ALFORD, Referring Physician: DILIP ALFORD, Tech: Mima Barton [facility] APPROVED REPORT EXAM: Two-dimensional and M-mode echocardiogram with Doppler and color Doppler. Other Information Quality : Technically Limited Technically limited study due to morbid obesity INDICATION SVT Echo Enhancing Agent Agent/Amount Used: Optison 2mL 2D DIMENSIONS RVDd4.0 (2.9-3.5cm)Left Atrium(2D)3.9 (1.6-4.0cm) IVSd1.4 (0.7-1.1cm)Aortic Root(2D)3.0 (2.0-3.7cm) LVDd4.3 (3.9-5.9cm)LVOT Diameter2.4 (1.8-2.4cm) PWd1.2 (0.7-1.1cm)LVDs3.7 (2.5-4.0cm) FS (%) 14.4 %SV26.2 ml LVEF(%)30.9 (>50%) Aortic Valve AoV Peak Mike.88.0cm/sAoV VTI17.5cm AO Peak GR.3.1mmHgLVOT Peak Mike.95.4cm/s LVOT VTI 16.36cmAO Mean GR.2mmHg FELIZ (VMAX)4.51an1MXY (VTI)4.14cm2 Mitral Valve MV E Hkyumhdd37.5cm/sMV DECEL [id number] MV A Flgnmaul60.2cm/sMV EUA74zm E/A Ratio0.9MVA (PHT)3.14cm2 TDI E/Lateral E'10.5E/Medial E'11.0 LEFT VENTRICLE The left ventricle is normal size. There is mild concentric left ventricular hypertrophy. The left ve ntricular systolic function is normal and the ejection fraction is within normal range. EF 55% There is normal LV segmental wall motion. Transmitral Doppler flow pattern is Grade I-abnormal relaxation p attern. RIGHT VENTRICLE The right ventricle is normal size. The right ventricular systolic function is normal. ATRIA The left atrium size is normal. The right atrium size is normal. The interatrial septum is intact wit h no evidence for an atrial septal defect or patent foramen ovale as noted on 2-D or Doppler imaging. AORTIC VALVE The aortic valve is normal in structure and function. Doppler and Color Flow revealed no significant aortic regurgitation. There is no significant aortic valvular stenosis. MITRAL VALVE The mitral valve is normal in structure and function. There is no evidence of mitral valve prolapse. There is no mitral valve stenosis. Doppler and Color Flow revealed no mitral valve regurgitation note d. TRICUSPID VALVE The tricuspid valve is not well visualized. Doppler and Color Flow revealed no tricuspid valve regurg itation noted. There is no tricuspid valve stenosis. PULMONIC VALVE The pulmonic valve is not well visualized. Doppler and Color Flow revealed no pulmonic valvular regur gitation. There is no pulmonic valvular stenosis. GREAT VESSELS The aortic root is normal in size. The ascending aorta is not well seen. The IVC was not visualized. PERICARDIAL EFFUSION There is no evidence of significant pericardial effusion. Critical Notification Critical Value: No <Conclusion> The left ventricular systolic function is normal and the ejection fraction is within normal range. EF 55% There is normal LV segmental wall motion. Signed by : Dilip Alford, Electronically Approved : 01/11/2020 15:50:52
== END 2020-01-11 11:20 | disposition home or self-care (01) ==
LOC: ER 08:22
DX: I47.1 Supraventricular tachycardia (principal); R00.2 Palpitations; I48.20 Chronic atrial fibrillation, unspecified; F41.9 Anxiety disorder, unspecified; E10.9 Type 1 diabetes mellitus without complications; E78.00 Pure hypercholesterolemia, unspecified; I10 Essential (primary) hypertension; Z90.89 Acquired absence of other organs; Z87.891 Personal history of nicotine dependence; Z98.890 Other specified postprocedural states
CPT/HCPCS: 36415; 71045; 80053; 81001; 83690; 83735; 83880; 84439; 84443; 84484; 85007; 85025; 85610; 93005; 96374; 96375; 99285; C8929; J0153; Q9956

== ENCOUNTER 2020-02-14 18:02 | Emergency (ER) | payer MEDICAID ==
[~2020-02-14] VITALS: Ht 172.7 cm; Wt 186.3 kg
--- NOTE | 2020-02-14 18:14 | PHYS DOC ---
Past Medical History Past Medical History: A-Fib, Anxiety, Cancer, Diabetes-Type I, High Estephania sterol, Hypertension, Other Additional Past Medical Histor: PROSTATE CA,A-FIB/RVR Past Surgical History: Tonsillectomy, Other Additional Past Surgical Histo: thyroidectomy, left shoulder Smoking Status: Former Smoker Alcohol Use: None Drug Use: None General Adult EDM: Chief Complaint: RAPID HEART RATE HPI: HPI: Patient is a 54 year old male who presents with sudden onset of palpitations that began about 30 minutes prior to arrival. Patient has a history of atrial fibrillation and feels similar. Patient was driving and noticed his heart racing. Patient has some chest pressure that is nonradiating and moderate in intensity at the worst and mild currently associated with this. Patient has some shortness of breath. Patient denies any recent illnesses, no fever no vomiting no cough no diarrhea. Patient says he has had 2 cups coffee and a soda today. Symptoms are worse with exertion and better with rest. Review of Systems: Review of Systems: Constitutional: Denies fever or chills. [] Eyes: Denies change in visual acuity. [] HENT: Denies nasal congestion or sore throat. [] Respiratory: Denies cough but has shortness of breath Cardiovascular: Complains of chest pressure but no edema also complains of palpitations GI: Denies abdominal pain, nausea, vomiting, bloody stools or diarrhea. [] : Denies dysuria. [] Musculoskeletal: Denies back pain or joint pain. [] Integument: Denies rash. [] Neurologic: Denies headache, focal weakness or sensory changes. [] Endocrine: Denies polyuria or polydipsia. [] Lymphatic: Denies swollen glands. [] Psychiatric: Denies depression or anxiety. [] Heart Score: HEART Score for Chest Pain: HEART Score for Chest Pain Response (Comments) Value History Moderately Suspicious 1 ECG Nonspecific Repolarizatio 1 Age >45 - < 65 1 Risk Factors 1 or 2 Risk Factors 1 Troponin < Normal Limit 0 Total 4 Risk Factors: Risk Factors: DM, Current or recent (<one month) smoker, HTN, HLP, family history of CAD, obesity. Risk Scores: Score 0 - 3: 2.5% MACE over next 6 weeks - Discharge Home Score 4 - 6: 20.3% MACE over next 6 weeks - Admit for Clinical Observation Score 7 - 10: 72.7% MACE over next 6 weeks - Early Invasive Strategies Allergies: Allergies: Allergies Coded Allergies Type Severity Reaction Last Updated Verified meperidine Allergy Severe Shortness of Air 10/12/14 No Physical Exam: PE: Constitutional: Well developed, well nourished, mild distress non-toxic appearance. [] HENT: Normocephalic, atraumatic, bilateral external ears normal, , nose normal. [] Eyes: PERRLA, EOMI, conjunctiva normal, no discharge. [] Neck: Normal range of motion, no tenderness, supple, no stridor. [] Cardiovascular: Tachycardia, irregularly irregular, peripheral pulses intact, cap refill brisk Lungs & Thorax: No respiratory distress Abdomen:, soft, no tenderness, no masses, no pulsatile masses. [] Skin: Warm, dry, no erythema, no rash. [] Back: No tenderness, no CVA tenderness. [] Extremities: No tenderness, no cyanosis, no clubbing, ROM intact, no edema. [] Neurologic: Alert and oriented X 3, normal motor function, normal sensory function, no focal deficits noted. [] Psychologic: Affect normal, judgement normal, mood normal. [] Current Patient Data: Labs: Laboratory Tests Test 02/14/20 18:15 White Blood Count 10.1 x10^3/uL Red Blood Count 4.66 x10^6/uL Hemoglobin 13.5 g/dL Hematocrit 40.0 % Mean Corpuscular Volume 86 fL Mean Corpuscular Hemoglobin 29 pg Mean Corpuscular Hemoglobin Concent 34 g/dL Red Cell Distribution Width 14.8 % Platelet Count 315 x10^3/uL Neutrophils (%) (Auto) 64 % Lymphocytes (%) (Auto) 22 % Monocytes (%) (Auto) 6 % Eosinophils (%) (Auto) 7 % Basophils (%) (Auto) 1 % Neutrophils # (Auto) 6.5 x10^3/uL Lymphocytes # (Auto) 2.3 x10^3/uL Monocytes # (Auto) 0.6 x10^3/uL Eosinophils # (Auto) 0.7 x10^3/uL Basophils # (Auto) 0.1 x10^3/uL Prothrombin Time 11.6 SEC Prothromb Time International Ratio 0.9 Activated Partial Thromboplast Time 27 SEC Sodium Level 138 mmol/L Potassium Level 3.9 mmol/L Chloride Level 99 mmol/L Carbon Dioxide Level 30 mmol/L Anion Gap 9 Blood Urea Nitrogen 16 mg/dL Creatinine 1.3 mg/dL Estimated GFR (Cockcroft-Gault) 58.0 BUN/Creatinine Ratio 12 Glucose Level 131 mg/dL Calcium Level 9.3 mg/dL Magnesium Level 1.6 mg/dL Total Bilirubin 0.2 mg/dL Aspartate Amino Transf (AST/SGOT) 23 U/L Alanine Aminotransferase (ALT/SGPT) 38 U/L Alkaline Phosphatase 98 U/L Troponin I Quantitative < 0.017 ng/mL TF-Mvm-D-Type Natriuretic Peptide 31 pg/mL Total Protein 7.9 g/dL Albumin 3.6 g/dL Albumin/Globulin Ratio 0.8 Thyroid Stimulating Hormone (TSH) 3.982 uIU/mL Current Medications Medications (Trade) Dose Ordered Sig/Jessy Route PRN Reason Start Time Stop Time Status Last Admin Dose Admin Diltiazem HCl (Cardizem Iv Push) 10 mg 1X ONCE IVP 02/14/20 18:15 02/14/20 18:16 DC 02/14/20 18:24 Diltiazem HCl 125 mg/Sodium Chloride 125 ml @ 5 mls/hr CONT PRN IV SEE I/O RECORD 02/14/20 18:15 Vital Signs: Vital Signs Date Time Temp Pulse Resp B/P (MAP) Pulse Ox O2 Delivery O2 Flow Rate FiO2 02/14/20 18:24 152 117/81 02/14/20 18:10 98.3 169 20 117/81 (93) 97 Room Air 98.3 EKG: EKG: [] EKG interpreted by me A. fib with a rate of 149 normal axis, nonspecific ST changes, normal QTC Repeat EKG interpreted by me sinus tach with rate of 101 normal axis, normal intervals, normal ST segments Radiology/Procedures: Radiology/Procedures: [][facility] [address] [place], [place] [id number] IMAGING REPORT Signed PATIENT: DEVON CHAVARRIA ACCOUNT: [id number] : 1965 LOCATION: ER AGE: 54 SEX: M EXAM STATUS: REG ER ORD. PHYSICIAN: ELISHA BRYSON MD REASON: acute cp, rapid heart rate PROCEDURE: PORTABLE CHEST 1V Single view chest dated 02/14/2020: No comparison available. Clinical Indication: Chest pain. Rapid heart rate.. Findings: Single upright portable exam of the chest was performed. Heart size and mediastinal contours are within normal limits given technique. The lungs are clear without evidence of focal consolidation. Vascular interstitium is within normal limits. Impression:: No acute radiographic abnormality. Electronically signed by: Jya Adams MD (02/14/2020 6:43 PM) [facility] [place] DICTATED and SIGNED BY: JAY AADMS MD DATE: 02/14/20 1843 Course & Med Decision Making: Course & Med Decision Making Pertinent Labs and Imaging studies reviewed. (See chart for details) [] Reassessed at 18: 30: Patient with heart rate of 100 feels much better. Appears to be in sinus on the monitor Reassessed at 7:12 PM patient is resting in no acute distress. Heart rate is right around 100. I discussed with the patient admission for observation for rule out PA and further cardiac monitoring. Patient says this happened to him multiple times and he feels good enough to go home. I discussed the risk and benefits including missed PA and patient has mental capacity to make the decision declines admission. Patient will follow-up with his project reservoir engineer quickly. Return precautions given Christiano Disclaimer: Christiano Disclaimer: This electronic medical record was generated, in whole or in part, using a voice recognition dictation system. Departure Departure Impression: Primary Impression: Atrial fibrillation with rapid ventricular response Disposition: 01 HOME, SELF-CARE Condition: STABLE Referrals: LETICIA MACDONALD MD (PCP) 2-3 days Patient Instructions: Atrial Fibrillation Additional Instructions: EMERGENCY DEPARTMENT GENERAL DISCHARGE INSTRUCTIONS THANK YOU for coming to [facility] Emergency Department (ED) today and trusting us with your care. We trust that you had a positive experience in our Emergency Department. If you wish to speak to the department Management you can contact the electronics department manager at . YOUR FOLLOW UP INSTRUCTIONS ARE FOLLOWS: Do you have a private doctor? If you do not have a private doctor, please ask for a resource list of physicians or clinics that may be able to assist you with follow up ca re. The Emergency Physician has interpreted your x-rays. The X-ray specialist will also review them. If there is a change in the findings you will be notified in 48 hours when at all possible. A lab test or lab culture may have been done, your results will be reviewed and you will be notified if you need a change in treatment. ADDITIONAL INSTRUCTIONS AND INFORMATION Your care today has been supervised by a physician who is specially trained in emergency care. Many problems require more than one evaluation for a complete diagnosis and treatment. We recommend that you schedule your follow up appointment as recommended to ensure complete treatment of your illness or injury. If you are unable to obtain follow up care and continue to have a problem, or if your condition worsens we recommend that you return to the ED. We are not able to safely determine your condition over the phone nor are we able to give sound medical advice over the phone. For these safety reasons, if you call for medical advice we will ask you to come to the ED for further evaluation If you have any questions regarding these discharge instructions please call the ED at . SAFETY INFORMATION In the interest of safety, wellness, and injury prevention; we encourage you to wear your seatbelt, if you smoke; quit smoking, and we encourage your family to use protective helmet for bicycling and other sporting events that present an increased risk for head injury. IF YOUR SYMPTOMS WORSEN OR NEW SYMPTOMS DEVELOP, OR YOU HAVE CONCERNS ABOUT YOUR CONDITION; OR IF YOUR CONDITION WORSENS WHILE YOU ARE WAITING FOR YOUR FOLLOW UP APPOINTMENT; EITHER CONTACT YOUR PRIMARY CARE DOCTOR, THE PHYSICIAN WHOSE NAME AND NUMBER YOU WERE GIVEN, OR RETURN TO THE ED IMMEDIATELY. Justicifation of Admission Dx: Justifications for Admission: Justification of Admission Dx: N/A ELISHA BRYSON MD Feb 14, 2020 18:14
[2020-02-14] MEDS ORDERED: dilTIAZem IV PUSH 25 MG/5 ML VIAL IVP ONE (18:15)
[2020-02-14] MEDS ORDERED: DILTIAZEM HCL 125 MG in IV NORMAL SALINE 100ML 100 ML IV PRN (18:15)
[2020-02-14 18:25] LABS: BASO # 0.1 x10^3/uL (0.0-0.2); BASO % 1 % (0-3); EOS # 0.7 x10^3/uL (0.0-0.7); EOS % 7 % (0-3); HEMOGLOBIN 13.5 g/dL (13.0-17.5); LYMPH # 2.3 x10^3/uL (1.0-4.8); LYMPH % 22 % (24-48); MEAN CORPUSCULAR HEMOGLOBIN 29 pg (25-35); MEAN CORPUSCULAR HGB CONC 34 g/dL (31-37); MEAN CORPUSCULAR VOLUME 86 fL (79-100); MONO # 0.6 x10^3/uL (0.0-1.1); MONO % 6 % (0-9); NEUT # 6.5 x10^3/uL (1.8-7.7); NEUT % 64 % (31-73); PLATELET COUNT 315 x10^3/uL (140-400); RED BLOOD COUNT 4.66 x10^6/uL (4.30-5.70); RED CELL DISTRIBUTION WIDTH 14.8 % (11.5-14.5); WHITE BLOOD COUNT 10.1 x10^3/uL (4.0-11.0)
[2020-02-14 18:35] LABS: PROTHROMBIN TIME PATIENT 11.6 SEC (11.7-14.0)
[2020-02-14 18:37] LABS: CALCIUM 9.3 mg/dL (8.5-10.1); CREATININE 1.3 mg/dL (0.7-1.3); POTASSIUM 3.9 mmol/L (3.5-5.1)
[2020-02-14 18:42] LABS: ALBUMIN 3.6 g/dL (3.4-5.0); ALBUMIN/GLOBULIN RATIO 0.8 (1.0-1.7); MAGNESIUM 1.6 mg/dL (1.8-2.4); TOTAL BILIRUBIN 0.2 mg/dL (0.2-1.0); TOTAL PROTEIN 7.9 g/dL (6.4-8.2)
--- NOTE | 2020-02-14 18:46 | RAD ---
Single view chest dated 02/14/2020: No comparison available. Clinical Indication: Chest pain. Rapid heart rate.. Findings: Single upright portable exam of the chest was performed. Heart size and mediastinal contours are within normal limits given technique. The lungs are clear without evidence of focal consolidation. Vascular interstitium is within normal limits. Impression:: No acute radiographic abnormality. Electronically signed by: Jay Adams MD (02/14/2020 6:43 PM) ROLF
[2020-02-14 20:00] VITALS: BP 100/62
--- NOTE | 2020-02-15 07:13 | EKG ---
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
--- NOTE | 2020-02-15 07:17 | EKG ---
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
== END 2020-02-14 20:02 | disposition home or self-care (01) ==
LOC: ER 18:02
DX: I48.20 Chronic atrial fibrillation, unspecified (principal); E10.9 Type 1 diabetes mellitus without complications; E78.00 Pure hypercholesterolemia, unspecified; I10 Essential (primary) hypertension; F41.9 Anxiety disorder, unspecified; Z87.891 Personal history of nicotine dependence; Z88.1 Allergy status to other antibiotic agents
CPT/HCPCS: 36415; 71045; 80053; 83735; 83880; 84443; 84484; 85025; 85610; 85730; 93005; 96374; 99285; J3490

== ENCOUNTER 2020-03-13 10:51 | Emergency (ER) | payer MEDICAID ==
[~2020-03-13] VITALS: Ht 172.7 cm; Wt 181.0 kg
[2020-03-13] MEDS ORDERED: ASPIRIN 325 MG TABLET PO ONE (11:00)
[2020-03-13] MEDS ORDERED: ADENOSINE 6 MG/2 ML VIAL. IV ONE (11:15)
[2020-03-13] MEDS ORDERED: IV NORMAL SALINE 1000ML BAG 1,000 ML IV ONE (11:15)
[2020-03-13] MEDS ORDERED: dilTIAZem IV PUSH 25 MG/5 ML VIAL IVP ONE (11:15)
[2020-03-13] MEDS ORDERED: DILTIAZEM HCL 125 MG in IV NORMAL SALINE 100ML 100 ML IV ONE (11:15)
[2020-03-13 11:29] LABS: BASO % 1 % (0-3); EOS # 0.5 x10^3/uL (0.0-0.7); EOS % 8 % (0-3); HEMATOCRIT 40.2 % (39.0-53.0); HEMOGLOBIN 13.4 g/dL (13.0-17.5); LYMPH # 0.8 x10^3/uL (1.0-4.8); LYMPH % 15 % (24-48); MEAN CORPUSCULAR HEMOGLOBIN 29 pg (25-35); MEAN CORPUSCULAR HGB CONC 33 g/dL (31-37); MEAN CORPUSCULAR VOLUME 86 fL (79-100); MONO # 0.3 x10^3/uL (0.0-1.1); MONO % 5 % (0-9); NEUT % 71 % (31-73); PLATELET COUNT 261 x10^3/uL (140-400); RED BLOOD COUNT 4.66 x10^6/uL (4.30-5.70); RED CELL DISTRIBUTION WIDTH 14.8 % (11.5-14.5); WHITE BLOOD COUNT 5.6 x10^3/uL (4.0-11.0)
[2020-03-13 11:39] LABS: PROTHROMBIN TIME PATIENT 12.1 SEC (11.7-14.0)
[2020-03-13 12:10] LABS: CALCIUM 8.8 mg/dL (8.5-10.1); CREATININE 1.1 mg/dL (0.7-1.3); GFR 70.3; POTASSIUM 3.6 mmol/L (3.5-5.1)
[2020-03-13 12:16] LABS: ALBUMIN 3.3 g/dL (3.4-5.0); ALBUMIN/GLOBULIN RATIO 0.8 (1.0-1.7); MAGNESIUM 1.7 mg/dL (1.8-2.4); TOTAL BILIRUBIN 0.4 mg/dL (0.2-1.0); TOTAL PROTEIN 7.3 g/dL (6.4-8.2)
[2020-03-13 12:27] LABS: FREE T4 1.04 ng/dL (0.76-1.46); THYROID STIM HORMONE (TSH) 4.087 uIU/mL (0.358-3.74)
[2020-03-13 12:42] LABS: BILIRUBIN,URINE NEGATIVE (NEG); CLARITY,URINE CLEAR; COLOR,URINE YELLOW; NITRITE,URINE NEGATIVE (NEG); PH,URINE 5.5 (<5.0-8.0); PROTEIN,URINE NEGATIVE (NEG-TRACE); UROBILINOGEN,URINE 0.2 mg/dL (0.2 mg/dL)
[2020-03-13 12:49] LABS: BACTERIA,URINE 0 /HPF (0-FEW); RBC,URINE 0 /HPF (0-2); SQUAMOUS EPITHELIAL CELL,UR FEW /LPF; WBC,URINE 0 /HPF (0-4)
--- NOTE | 2020-03-13 13:08 | PHYS DOC ---
Past Medical History Past Medical History: A-Fib, Anxiety, Cancer, Diabetes-Type I, High Cholesterol, Hypertension, Other Additional Past Medical Histor: PROSTATE CA,A-FIB/RVR Past Surgical History: Tonsillectomy, Other Additional Past Surgical Histo: thyroidectomy, left shoulder Smoking Status: Former Smoker Alcohol Use: None Drug Use: None General Adult EDM: Chief Complaint: RAPID HEART RATE HPI: HPI: Mr. gallagher is a 54-year-old white male with a past medical history of cardiac arrhythmias including A. fib with RVR, who presents to the ED with a 3-hour history of rapid heart rate. Patient reports awaking from sleep today experiencing a rapid heart rate. He was also experiencing some mild anxiety, so he brought himself to the ED. Patient has a past medical history of obstructive sleep apnea, which his dropper tank storage think may be related to his A. fib. He has been experiencing episodes like this weekly for the last 3 months however the last month he is not experiencing episodes. In the past he is come to the ED and received Cardizem which converted him to sinus rhythm. Past medical history: A. fib with RVR, obstructive sleep apnea. Type 2 diabetes, hypertension. Mild CHF. Parathyroid adenoma Past surgical history: Thyroid removal proximately 15 years ago. Left shoulder surgery. Omeprazole 20 mg twice daily, aspirin 81 mg p.o. daily, B12 50 mcg twice daily, albuterol nebulizer nightly, albuterol inhaler as needed, simvastatin 20 mg p.o. daily, metformin 850 mg twice daily, lisinopril 10 mg p.o. daily, levothyroxine 75 mg p.o. daily, furosemide 20 mg twice daily. Review of Systems: Review of Systems: Constitutional: Denies fever or chills Eyes: Denies redness or eye pain HENT: Denies nasal congestion or sore throat Respiratory: Denies cough or shortness of breath Cardiovascular: Denies chest pain or palpitations GI: Denies abdominal pain, nausea, or vomiting : Denies dysuria or hematuria Musculoskeletal: Denies back pain or joint pain Integument: Denies rash or skin lesions Neurologic: Denies headache, focal weakness or sensory changes Complete systems were reviewed and found to be within normal limits, except as documented in this note. Heart Score: Risk Factors: Risk Factors: DM, Current or recent (<one month) smoker, HTN, HLP, family history of CAD, obesity. Risk Scores: Score 0 - 3: 2.5% MACE over next 6 weeks - Discharge Home Score 4 - 6: 20.3% MACE over next 6 weeks - Admit for Clinical Observation Score 7 - 10: 72.7% MACE over next 6 weeks - Early Invasive Strategies Current Medications: Current Medications Medications (Trade) Dose Ordered Sig/Jessy Start Time Stop Time Status Last Admin Dose Admin Adenosine (Adenocard) 6 mg 1X ONCE 03/13/20 11:15 03/13/20 11:37 DC Aspirin (Michele Aspirin) 325 mg 1X ONCE 03/13/20 11:00 03/13/20 11:03 DC 03/13/20 11:51 325 MG Diltiazem HCl (Cardizem Iv Push) 20 mg 1X ONCE 03/13/20 11:15 03/13/20 11:16 DC 03/13/20 11:55 20 MG Diltiazem HCl 125 mg/Sodium Chloride 125 ml @ 5 mls/hr 1X ONCE 03/13/20 11:15 03/13/20 12:02 DC Sodium Chloride 1,000 ml @ 1,000 mls/hr 1X ONCE 03/13/20 11:15 03/13/20 12:14 DC 03/13/20 11:52 1,000 MLS/HR Allergies: Allergies: Allergies Coded Allergies Type Severity Reaction Last Updated Verified meperidine Allergy Severe Shortness of Air 10/12/14 No Physical Exam: PE: Constitutional: Well developed, well nourished, no acute distress, non-toxic appearance HENT: Normocephalic, atraumatic. Cranial nerves II through XII grossly intact b ilaterally. Eyes: PERRL, EOMI, conjunctiva normal, no discharge Neck: Normal range of motion, no tenderness, supple. No carotid bruits. Lungs & Thorax: Bilateral breath sounds clear to auscultation, no wheezing Heart: Regular rate and rhythm no murmurs. Patient estimated to be approximately 150 bpm. S1 and S2 present, no S3 or S4. Abdomen: Soft, no tenderness. Bowel sounds present all 4 quadrants. Skin: Warm, dry, no erythema, no rash Back: No tenderness, no CVA tenderness Extremities: No tenderness, ROM intact, no edema. 2+4 pulses in all 4 extremities bilaterally. Neurologic: Alert and oriented X 3, normal motor function, normal sensory function, no focal deficits noted Psychologic: Affect normal, judgment normal. Patient appears to be anxious. Current Patient Data: Labs: Laboratory Tests Test 03/13/20 11:15 White Blood Count 5.6 x10^3/uL (4.0-11.0) Red Blood Count 4.66 x10^6/uL (4.30-5.70) Hemoglobin 13.4 g/dL (13.0-17.5) Hematocrit 40.2 % (39.0-53.0) Mean Corpuscular Volume 86 fL (79-100) Mean Corpuscular Hemoglobin 29 pg (25-35) Mean Corpuscular Hemoglobin Concent 33 g/dL (31-37) Red Cell Distribution Width 14.8 % (11.5-14.5) H Platelet Count 261 x10^3/uL (140-400) Neutrophils (%) (Auto) 71 % (31-73) Lymphocytes (%) (Auto) 15 % (24-48) L Monocytes (%) (Auto) 5 % (0-9) Eosinophils (%) (Auto) 8 % (0-3) H Basophils (%) (Auto) 1 % (0-3) Neutrophils # (Auto) 4.0 x10^3/uL (1.8-7.7) Lymphocytes # (Auto) 0.8 x10^3/uL (1.0-4.8) L Monocytes # (Auto) 0.3 x10^3/uL (0.0-1.1) Eosinophils # (Auto) 0.5 x10^3/uL (0.0-0.7) Basophils # (Auto) 0.0 x10^3/uL (0.0-0.2) Prothrombin Time 12.1 SEC (11.7-14.0) Prothrombin Time INR 0.9 (0.8-1.1) Activated Partial Thromboplast Time 26 SEC (24-38) Sodium Level 136 mmol/L (136-145) Potassium Level 3.6 mmol/L (3.5-5.1) Chloride Level 100 mmol/L (98-107) Carbon Dioxide Level 28 mmol/L (21-32) Anion Gap 8 (6-14) Blood Urea Nitrogen 16 mg/dL (8-26) Creatinine 1.1 mg/dL (0.7-1.3) Estimated GFR (Cockcroft-Gault) 70.3 BUN/Creatinine Ratio 15 (6-20) Glucose Level 136 mg/dL (70-99) H Calcium Level 8.8 mg/dL (8.5-10.1) Magnesium Level 1.7 mg/dL (1.8-2.4) L Total Bilirubin 0.4 mg/dL (0.2-1.0) Aspartate Amino Transferase (AST) 21 U/L (15-37) Alanine Aminotransferase (ALT) 31 U/L (16-63) Alkaline Phosphatase 90 U/L (46-116) Troponin I Quantitative < 0.017 ng/mL (0.000-0.055) Total Protein 7.3 g/dL (6.4-8.2) Albumin 3.3 g/dL (3.4-5.0) L Albumin/Globulin Ratio 0.8 (1.0-1.7) L Lipase 122 U/L (73-393) Laboratory Tests 03/13/20 11:15 Laboratory Tests 03/13/20 11:15 Vital Signs: Vital Signs Date Time Temp Pulse Resp B/P (MAP) Pulse Ox O2 Delivery O2 Flow Rate FiO2 03/13/20 11:55 146 113/88 03/13/20 10:59 97.1 20 97 Room Air 97.1 EKG: EK:59 AM 03/13/2020 Radiology/Procedures: Radiology/Procedures: [] Course & Med Decision Making: Course & Med Decision Making 54-year-old white male with a past medical history of A. fib with RVR presented to the ED with a rapid heart rate. EKG was performed patient was found to be in SVT. Cardizem bolus 20 mg was administered, on repeat EKG patient was found to be in normal sinus rhythm. Discharge patient home. Follow-up with Dr. Chicas, recommend ablation. Christiano Disclaimer: Christiano Disclaimer: This electronic medical record was generated, in whole or in part, using a voice recognition dictation system. Departure Departure Impression: Primary Impression: SVT (supraventricular tachycardia) Additional Impression: Hypomagnesemia Disposition: 01 HOME, SELF-CARE Condition: IMPROVED Referrals: LETICIA MACDONALD MD (PCP) SALOME CHICAS MD Patient Instructions: Hypomagnesemia, Supraventricular Tachycardia, Ea sy-to-Read Justicifation of Admission Dx: Justifications for Admission: Justification of Admission Dx: N/A JUAN DANIEL CARTER DO Mar 13, 2020 13:08
[2020-03-13] MEDS ORDERED: MAGNESIUM CHLORIDE ER 64 MG TABLET.ER PO ONE (13:15)
[2020-03-13 13:46] VITALS: BP 111/56
--- NOTE | 2020-03-13 17:12 | EKG ---
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
--- NOTE | 2020-03-13 19:18 | EKG ---
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
== END 2020-03-13 13:50 | disposition home or self-care (01) ==
LOC: ER 10:51
DX: I47.1 Supraventricular tachycardia (principal); E83.42 Hypomagnesemia; I48.91 Unspecified atrial fibrillation; F41.9 Anxiety disorder, unspecified; E10.9 Type 1 diabetes mellitus without complications; E78.00 Pure hypercholesterolemia, unspecified; I10 Essential (primary) hypertension; Z85.9 Personal history of malignant neoplasm, unspecified; Z90.89 Acquired absence of other organs; Z98.890 Other specified postprocedural states; Z87.891 Personal history of nicotine dependence
CPT/HCPCS: 36415; 80053; 81001; 83690; 83735; 84439; 84443; 84481; 84484; 85025; 85610; 85730; 93005; 96361; 96374; 99285; J3490; J7030

== ENCOUNTER 2020-05-11 22:37 | Emergency (ER) | payer MEDICAID ==
[~2020-05-11] VITALS: Ht 172.7 cm; Wt 184.1 kg
--- NOTE | 2020-05-11 22:54 | PHYS DOC ---
Past Medical History Past Medical History: A-Fib, Anxiety, Cancer, Diabetes-Type I, High Estephania sterol, Hypertension, Other Additional Past Medical Histor: PROSTATE CA,A-FIB/RVR Past Surgical History: Tonsillectomy, Other Additional Past Surgical Histo: thyroidectomy, left shoulder Smoking Status: Former Smoker Alcohol Use: None Drug Use: None General Adult EDM: Chief Complaint: CHEST PAIN-CARDIAC NATURE HPI: HPI: Patient is a 54 year old male with past medical history A. fib hypertension hyperlipidemia diabetes presents with a chief complaint of atrial fibrillation. Patient states around 0 he was playing a video game became excited and st arted to feel his heart race. Patient states he started to have increased heart rate and some chest pressure. Patient denies any associated shortness of breath nausea or vomiting. Patient is on flecainide states he took a dose prior to arrival. States when he comes to the ER he is usually treated with Cardizem with improvement. Review of Systems: Review of Systems: Constitutional: Denies fever or chills. [] Eyes: Denies change in visual acuity. [] HENT: Denies nasal congestion or sore throat. [] Respiratory: Denies cough or shortness of breath. [] Cardiovascular: Positive palpitations positive chest pain GI: Denies abdominal pain, nausea, vomiting, bloody stools or diarrhea. [] : Denies dysuria. [] Musculoskeletal: Denies back pain or joint pain. [] Integument: Denies rash. [] Neurologic: Denies headache, focal weakness or sensory changes. [] Endocrine: Denies polyuria or polydipsia. [] Lymphatic: Denies swollen glands. [] Psychiatric: Denies depression or anxiety. [] Heart Score: Risk Factors: Risk Factors: DM, Current or recent (<one month) smoker, HTN, HLP, family history of CAD, obesity. Risk Scores: Score 0 - 3: 2.5% MACE over next 6 weeks - Discharge Home Score 4 - 6: 20.3% MACE over next 6 weeks - Admit for Clinical Observation Score 7 - 10: 72.7% MACE over next 6 weeks - Early Invasive Strategies Allergies: Allergies: Allergies Coded Allergies Type Severity Reaction Last Updated Verified meperidine Allergy Severe Shortness of Air 10/12/14 No Physical Exam: PE: Constitutional: Well developed, well nourished, no acute distress, non-toxic appearance. [] HENT: Normocephalic, atraumatic, bilateral external ears normal, oropharynx moist, no oral exudates, nose normal. [] Eyes: PERRLA, EOMI, conjunctiva normal, no discharge. [] Neck: Normal range of motion, no tenderness, supple, no stridor. [] Cardiovascular: Tachycardia Lungs & Thorax: Bilateral breath sounds clear to auscultation [] Abdomen: Bowel sounds normal, soft, no tenderness, no masses, no pulsatile masses. [] Skin: Warm, dry, no erythema, no rash. [] Back: No tenderness, no CVA tenderness. [] Extremities: No tenderness, no cyanosis, no clubbing, ROM intact, no edema. [] Neurologic: Alert and oriented X 3, normal motor function, normal sensory function, no focal deficits noted. [] Psychologic: Affect normal, judgement normal, mood normal. [] EKG: EKG: EKG at 2249 A. fib RVR rate of 136 no stemi[] Radiology/Procedures: Radiology/Procedures: [] Course & Med Decision Making: Course & Med Decision Making Pertinent Labs and Imaging studies reviewed. (See chart for details) [] Patient was evaluated for chief complaint. Work-up consisted of laboratory analysis and EKG. Results reviewed and discussed with patient. Patient EKG consistent with A. fib. Patient has a long standing history A. fib RVR. Patient is currently on flecainide took a dose prior to arrival. Patient was initially treated with 20 mg Cardizem IV push. Patient was observed no significant change. Patient was then dosed with 30 mg Cardizem IV push. Shortly after treatment patient converted to a sinus rhythm. Sinus rhythm was observed on heart monitor. Heart rate of 80s. Patient states he feels much better he would like to be discharged home. Dragon Disclaimer: [employer] Disclaimer: This electronic medical record was generated, in whole or in part, using a voice recognition dictation system. Departure Departure Impression: Primary Impression: Atrial fibrillation with RVR Disposition: 01 DC HOME SELF CARE/HOMELESS Condition: STABLE Referrals: LETICIA MACDONALD MD (PCP) Patient Instructions: Atrial Fibrillation ISACC GUAMAN I DO May 11, 2020 22:54
[2020-05-11] MEDS ORDERED: dilTIAZem IV PUSH 25 MG/5 ML VIAL IVP ONE ×2 (23:00→23:45)
[2020-05-11 23:24] LABS: BASO % 1 % (0-3); EOS # 0.6 x10^3/uL (0.0-0.7); EOS % 9 % (0-3); HEMOGLOBIN 12.4 g/dL (13.0-17.5); LYMPH # 0.7 x10^3/uL (1.0-4.8); LYMPH % 11 % (24-48); MEAN CORPUSCULAR HEMOGLOBIN 31 pg (25-35); MEAN CORPUSCULAR HGB CONC 35 g/dL (31-37); MEAN CORPUSCULAR VOLUME 89 fL (79-100); MONO # 0.4 x10^3/uL (0.0-1.1); MONO % 6 % (0-9); NEUT # 4.8 x10^3/uL (1.8-7.7); NEUT % 73 % (31-73); PLATELET COUNT 283 x10^3/uL (140-400); RED BLOOD COUNT 4.07 x10^6/uL (4.30-5.70); RED CELL DISTRIBUTION WIDTH 17.3 % (11.5-14.5); WHITE BLOOD COUNT 6.5 x10^3/uL (4.0-11.0)
[2020-05-11 23:31] LABS: CALCIUM 8.7 mg/dL (8.5-10.1); CREATININE 1.1 mg/dL (0.7-1.3); GFR 70.3; POTASSIUM 3.7 mmol/L (3.5-5.1)
[2020-05-11 23:36] LABS: ALBUMIN 3.3 g/dL (3.4-5.0); ALBUMIN/GLOBULIN RATIO 0.9 (1.0-1.7); TOTAL BILIRUBIN 0.1 mg/dL (0.2-1.0); TOTAL PROTEIN 6.8 g/dL (6.4-8.2)
[2020-05-12 00:03] VITALS: BP 119/60
== END 2020-05-12 00:06 | disposition home or self-care (01) ==
LOC: ER 22:37
DX: I48.20 Chronic atrial fibrillation, unspecified (principal); R07.89 Other chest pain; R00.2 Palpitations; F41.9 Anxiety disorder, unspecified; E10.9 Type 1 diabetes mellitus without complications; E78.00 Pure hypercholesterolemia, unspecified; I10 Essential (primary) hypertension; Z85.46 Personal history of malignant neoplasm of prostate; Z90.89 Acquired absence of other organs; Z98.890 Other specified postprocedural states; Z87.891 Personal history of nicotine dependence
CPT/HCPCS: 36415; 80053; 84484; 85025; 96374; 96376; 99285; J3490

== ENCOUNTER 2020-07-08 14:19 | Emergency (ER) | payer MEDICAID ==
[~2020-07-08] VITALS: Ht 172.7 cm; Wt 190.0 kg
[2020-07-08] MEDS ORDERED: dilTIAZem IV PUSH 25 MG/5 ML VIAL IVP ONE (14:45)
[2020-07-08 15:01] LABS: BASO # 0.1 x10^3/uL (0.0-0.2); BASO % 1 % (0-3); EOS # 0.7 x10^3/uL (0.0-0.7); EOS % 11 % (0-3); HEMATOCRIT 37.4 % (39.0-53.0); HEMOGLOBIN 12.9 g/dL (13.0-17.5); LYMPH # 0.6 x10^3/uL (1.0-4.8); LYMPH % 9 % (24-48); MEAN CORPUSCULAR HEMOGLOBIN 30 pg (25-35); MEAN CORPUSCULAR HGB CONC 35 g/dL (31-37); MEAN CORPUSCULAR VOLUME 86 fL (79-100); MONO # 0.3 x10^3/uL (0.0-1.1); MONO % 5 % (0-9); NEUT % 74 % (31-73); PLATELET COUNT 271 x10^3/uL (140-400); RED BLOOD COUNT 4.33 x10^6/uL (4.30-5.70); RED CELL DISTRIBUTION WIDTH 15.2 % (11.5-14.5); WHITE BLOOD COUNT 6.7 x10^3/uL (4.0-11.0)
[2020-07-08 15:09] LABS: CALCIUM 9.4 mg/dL (8.5-10.1); CREATININE 1.2 mg/dL (0.7-1.3); GFR 63.6; POTASSIUM 4.1 mmol/L (3.5-5.1)
[2020-07-08 17:00] VITALS: BP 115/63
--- NOTE | 2020-07-08 17:01 | RAD ---
Exam: Chest one view INDICATION: Shortness of breath TECHNIQUE: Frontal view of the chest Comparisons: 02/14/2020 FINDINGS: Heart is mildly enlarged. Pulmonary vessels are within normal limits. The lung and pleural spaces are clear. IMPRESSION: No acute cardiopulmonary process. Electronically signed by: Dmitry Moreno MD (07/08/2020 4:59 PM) OMEGA
--- NOTE | 2020-07-08 17:12 | ED.ADGEN ---
Past Medical History Past Medical History: A-Fib, Anxiety, Cancer, Diabetes-Type II, High Cholesterol Additional Past Medical Histor: PROSTATE CA,A-FIB/RVR Past Surgical History: Tonsillectomy, Other Additional Past Surgical Histo: thyroidectomy, left shoulder Smoking Status: Never Smoker Alcohol Use: None Drug Use: None General Adult EDM: Chief Complaint: Palpitations HPI: HPI: Patient is a 54-year-old male with past medical history of atrial fibrillation and SVT who presents to the emergency room complaining of palpitations. He states this feels very similar to prior episodes. He states it started about an hour prior to arrival. He has been falling with an EP spectrographer at who feel that he either needs a pacemaker or an ablation. He denies any chest pain. He has been having intermittent chronic shortness of breath. He denies any c ough, shortness of breath, abdominal pain, nausea, vomiting. Review of Systems: Review of Systems: Complete ROS is negative unless otherwise documented in HPI Current Medications: Current Medications Medications (Trade) Dose Ordered Sig/Jessy Start Time Stop Time Status Last Admin Dose Admin Diltiazem HCl (Cardizem Iv Push) 20 mg 1X ONCE 07/08/20 14:45 07/08/20 14:46 DC 07/08/20 14:56 20 MG Allergies: Allergies: Allergies Coded Allergies Type Severity Reaction Last Updated Verified meperidine Allergy Severe Shortness of Air 10/12/14 No Physical Exam: PE: General: Awake, alert, NAD. Well Nourished, well hydrated. Cooperative HEENT: Atraumatic, EOMI, PERRL, airway patent, moist oral mucosa Neck: Supple, trachea midline Respiratory: CTA bilaterally, normal effort, no wheezing/crackles CV: R tachycardic, no murmur, cap refill <2 GI: Soft, nondistended, nontender, no masses MSK: No obvious deformities Skin: Warm, dry, intact Neuro: A&O x3, speech NL, sensory and motor grossly intact, no focal deficits Psych: Normal affect, normal mood, not suicidal or homicidal Current Patient Data: Labs: Laboratory Tests Test 07/08/20 14:46 White Blood Count 6.7 x10^3/uL (4.0-11.0) Red Blood Count 4.33 x10^6/uL (4.30-5.70) Hemoglobin 12.9 g/dL (13.0-17.5) L Hematocrit 37.4 % (39.0-53.0) L Mean Corpuscular Volume 86 fL (79-100) Mean Corpuscular Hemoglobin 30 pg (25-35) Mean Corpuscular Hemoglobin Concent 35 g/dL (31-37) Red Cell Distribution Width 15.2 % (11.5-14.5) H Platelet Count 271 x10^3/uL (140-400) Neutrophils (%) (Auto) 74 % (31-73) H Lymphocytes (%) (Auto) 9 % (24-48) L Monocytes (%) (Auto) 5 % (0-9) Eosinophils (%) (Auto) 11 % (0-3) H Basophils (%) (Auto) 1 % (0-3) Neutrophils # (Auto) 5.0 x10^3/uL (1.8-7.7) Lymphocytes # (Auto) 0.6 x10^3/uL (1.0-4.8) L Monocytes # (Auto) 0.3 x10^3/uL (0.0-1.1) Eosinophils # (Auto) 0.7 x10^3/uL (0.0-0.7) Basophils # (Auto) 0.1 x10^3/uL (0.0-0.2) Sodium Level 137 mmol/L (136-145) Potassium Level 4.1 mmol/L (3.5-5.1) Chloride Level 99 mmol/L (98-107) Carbon Dioxide Level 29 mmol/L (21-32) Anion Gap 9 (6-14) Blood Urea Nitrogen 24 mg/dL (8-26) Creatinine 1.2 mg/dL (0.7-1.3) Estimated GFR (Cockcroft-Gault) 63.6 Glucose Level 143 mg/dL (70-99) H Calcium Level 9.4 mg/dL (8.5-10.1) Troponin I Quantitative < 0.017 ng/mL (0.000-0.055) Laboratory Tests 07/08/20 14:46 Laboratory Tests 07/08/20 14:46 Vital Signs: Vital Signs Date Time Temp Pulse Resp B/P (MAP) Pulse Ox O2 Delivery O2 Flow Rate FiO2 07/08/20 17:00 76 18 115/63 (80) 97 Room Air 07/08/20 14:34 97.7 97.7 EKG: EKG: [] Heart Score: Risk Factors: Risk Factors: DM, Current or recent (<one month) smoker, HTN, HLP, family history of CAD, obesity. Risk Scores: Score 0 - 3: 2.5% MACE over next 6 weeks - Discharge Home Score 4 - 6: 20.3% MACE over next 6 weeks - Admit for Clinical Observation Score 7 - 10: 72.7% MACE over next 6 weeks - Early Invasive Strategies Radiology/Procedures: Radiology/Procedures: [] Course & Med Decision Making: Course & Med Decision Making Pertinent Labs and Imaging studies reviewed. (See chart for details) Patient is a 54-year-old male with a past medical history of SVT and atrial fibrillation who rpesents to the Emergency Room complaining of palpitations. Upon arrival, EKG was performed and shows the patient is in SVT. Patient does have a history of SVT. On exam, patient is well-appearing and tachycardic. Patient was given Cardizem and on re-evaluation has converted to normal sinus rhythm. CBC, BMP, BNP, troponin, EKG, and CXR were ordered to evaluate for causes of arrhythmia and to evaluate for end stage organ damage. Work-up is unremarkable. He has follow-up with his spectrographer. Patient's test results and vitals while in the ED were fully reviewed and discussed with the patient. Patient is stable and at this time does not need admission to the hospital. We have discussed strict return precautions and the importance of following up with their Primary Care Physician. Patient stated understanding and was given an opportunity to ask any questions. Patient is in agreement with plan. Dragon Disclaimer: Dragon Disclaimer: This electronic medical record was generated, in whole or in part, using a voice recognition dictation system. Departure Departure Impression: Primary Impression: SVT (supraventricular tachycardia) Disposition: 01 DC HOME SELF CARE/HOMELESS Condition: IMPROVED Referrals: LETICIA MACDONALD MD (PCP) Patient Instructions: Supraventricular Tachycardia CHING TURNER MD Jul 08, 2020 17:12
--- NOTE | 2020-07-11 12:19 | EKG ---
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
== END 2020-07-08 17:31 | disposition home or self-care (01) ==
LOC: ER 14:19
DX: I47.1 Supraventricular tachycardia (principal); R06.02 Shortness of breath; I48.91 Unspecified atrial fibrillation; F41.9 Anxiety disorder, unspecified; E11.9 Type 2 diabetes mellitus without complications; E78.00 Pure hypercholesterolemia, unspecified; Z88.1 Allergy status to other antibiotic agents
CPT/HCPCS: 36415; 71045; 80048; 84484; 85025; 96374; 99285; J3490; 93005

== ENCOUNTER 2020-07-23 09:01 | Emergency (ER) | payer MEDICAID ==
[~2020-07-23] VITALS: Ht 172.7 cm; Wt 187.0 kg
[~2020-07-23 09:01] MED LIST changes: +LISI10TA16 PO; -LISI10TA2 PO
[2020-07-23] MEDS ORDERED: ASPIRIN 325 MG TABLET PO ONE (09:45)
[2020-07-23] MEDS ORDERED: IV NORMAL SALINE 1000ML BAG 1,000 ML IV ONE (09:45)
[2020-07-23 09:51] LABS: BILIRUBIN,URINE NEGATIVE (NEG); CLARITY,URINE CLEAR; COLOR,URINE YELLOW; NITRITE,URINE NEGATIVE (NEG); PH,URINE 6.5 (<5.0-8.0); PROTEIN,URINE NEGATIVE (NEG-TRACE); UROBILINOGEN,URINE 0.2 mg/dL (0.2 mg/dL)
[2020-07-23 10:05] LABS: BACTERIA,URINE 0 /HPF (0-FEW); RBC,URINE OCC /HPF (0-2); WBC,URINE OCC /HPF (0-4)
[2020-07-23 10:47] LABS: BASO % 1 % (0-3); EOS # 0.7 x10^3/uL (0.0-0.7); EOS % 10 % (0-3); HEMATOCRIT 36.5 % (39.0-53.0); HEMOGLOBIN 12.2 g/dL (13.0-17.5); LYMPH # 0.5 x10^3/uL (1.0-4.8); LYMPH % 8 % (24-48); MEAN CORPUSCULAR HEMOGLOBIN 29 pg (25-35); MEAN CORPUSCULAR HGB CONC 34 g/dL (31-37); MEAN CORPUSCULAR VOLUME 86 fL (79-100); MONO # 0.3 x10^3/uL (0.0-1.1); MONO % 5 % (0-9); NEUT # 5.2 x10^3/uL (1.8-7.7); NEUT % 77 % (31-73); PLATELET COUNT 317 x10^3/uL (140-400); RED BLOOD COUNT 4.23 x10^6/uL (4.30-5.70); RED CELL DISTRIBUTION WIDTH 14.9 % (11.5-14.5); WHITE BLOOD COUNT 6.7 x10^3/uL (4.0-11.0)
[2020-07-23 10:58] LABS: CALCIUM 9.7 mg/dL (8.5-10.1); GFR 78.5; POTASSIUM 3.9 mmol/L (3.5-5.1)
[2020-07-23 11:04] LABS: ALBUMIN 3.1 g/dL (3.4-5.0); ALBUMIN/GLOBULIN RATIO 0.8 (1.0-1.7); MAGNESIUM 1.9 mg/dL (1.8-2.4); TOTAL BILIRUBIN 0.2 mg/dL (0.2-1.0); TOTAL PROTEIN 7.1 g/dL (6.4-8.2)
--- NOTE | 2020-07-23 11:48 | EKG ---
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
--- NOTE | 2020-07-23 11:49 | EKG ---
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
[2020-07-23] MEDS ORDERED: IOHEXOL 350 MG/ML 100 ML VIAL. IV ONE (12:00)
[2020-07-23] MEDS ORDERED: CONTRAST GIVEN. MC PRN (12:00)
--- NOTE | 2020-07-23 13:14 | RAD ---
CT arteriogram of the chest. HISTORY: Dyspnea, elevated d-dimer CT arteriogram of the chest was done using 100 mL Omnipaque 350 contrast. Patient's size creates beam hardening artifact. IV placement limits the contrast in the collecting systems. Sagittal and coronal MIP images were reconstructed. There is no mediastinal adenopathy. There is no pleural effusion. The upper aspect of the liver and spleen are unremarkable. Adrenal glands are normal. There is linear sc arring or atelectasis in the lung bases. No other infiltrates are noted. There is no central pulmonar y embolus. There are calcified nodes at the left hilum from granulomatous disease. IMPRESSION: 1. No pulmonary embolus noted. 2. Linear atelectasis without other infiltrates. PQRS Compliance Statement: One or more of the following individualized dose reduction techniques were utilized for this examinat ion: 1. Automated exposure control 2. Adjustment of the mA and/or kV according to patient size 3. Use of iterative reconstruction technique Electronically signed by: Darrlel Bradford MD (07/23/2020 1:10 PM) [facility]
[2020-07-23 13:18] VITALS: BP 114/44
--- NOTE | 2020-07-23 13:41 | PHYS DOC ---
Past Medical History Past Medical History: A-Fib, Anxiety, Cancer, Diabetes-Type II, High Cholesterol Additional Past Medical Histor: PROSTATE CA,A-FIB/RVR Past Surgical History: Tonsillectomy, Other Additional Past Surgical Histo: thyroidectomy, left shoulder Smoking Status: Former Smoker Alcohol Use: None Drug Use: None General Adult EDM: Chief Complaint: SHORTNESS OF BREATH HPI: HPI: Patient is a 54 year old male presents with report of shortness of breath that started this evening. Patient reports associated palpitations. Reports he thinks he is back and atrial fibrillation. Patient denies any leg swelling or calf tenderness. Denies fever or chills. Patient does report some fatigue. Denies known exposure to COVID-19. Denies trauma. Review of Systems: Review of Systems: Constitutional: Denies fever or chills Eyes: Denies redness or eye pain HENT: Denies nasal congestion or sore throat Respiratory: Denies cough; reports shortness of breath Cardiovascular: Denies chest pain; reports palpitations GI: Denies abdominal pain, nausea, or vomiting : Denies dysuria or hematuria Musculoskeletal: Denies back pain or joint pain Integument: Denies rash or skin lesions Neurologic: Denies headache, focal weakness or sensory changes Complete systems were reviewed and found to be within normal limits, except as documented in this note. Heart Score: HEART Score for Chest Pain: HEART Score for Chest Pain Response (Comments) Value History Slighlty/Non-Suspicious 0 ECG Normal 0 Age >45 - < 65 1 Risk Factors >3 Risk Factors or Hx CAD 2 Troponin < Normal Limit 0 Total 3 Risk Factors: Risk Factors: DM, Current or recent (<one month) smoker, HTN, HLP, family history of CAD, obesity. Risk Scores: Score 0 - 3: 2.5% MACE over next 6 weeks - Discharge Home Score 4 - 6: 20.3% MACE over next 6 weeks - Admit for Clinical Observation Score 7 - 10: 72.7% MACE over next 6 weeks - Early Invasive Strategies Current Medications: Current Medications Medications (Trade) Dose Ordered Sig/[facility] Start Time Stop Time Status Last Admin Dose Admin Aspirin (Michele Aspirin) 325 mg 1X ONCE 07/23/20 09:45 07/23/20 09:46 DC 07/23/20 10:24 325 MG Diltiazem HCl (Cardizem Iv Push) 20 mg 1X ONCE 07/23/20 09:45 07/23/20 09:46 DC 07/23/20 10:26 20 MG Diltiazem HCl 125 mg/Sodium Chloride 125 ml @ 5 mls/hr CONT PRN 07/23/20 09:45 07/23/20 10:52 DC Info (CONTRAST GIVEN -- Rx MONITORING) 1 each PRN DAILY PRN 07/23/20 12:00 07/25/20 11:59 Iohexol (Omnipaque 350 Mg/ml) 100 ml 1X ONCE 07/23/20 12:00 07/23/20 12:01 DC 07/23/20 12:00 100 ML Sodium Chloride 1,000 ml @ 1,000 mls/hr 1X ONCE 07/23/20 09:45 07/23/20 10:44 DC 07/23/20 10:24 1,000 MLS/HR Allergies: Allergies: Allergies Coded Allergies Type Severity Reaction Last Updated Verified meperidine Allergy Severe Shortness of Air 10/12/14 No Physical Exam: PE: Constitutional: Well developed, obese, no acute distress, non-toxic appearance HENT: Normocephalic, atraumatic Eyes: Conjunctiva normal, no discharge Neck: Normal range of motion, no tenderness, supple Lungs & Thorax: No respiratory distress, equal chest rise and fall Cardiac: Tachycardia, peripheral radial pulses +2 bilaterally Abdomen: Soft, no tenderness Skin: Warm, dry, no erythema, no rash Extremities: No tenderness, ROM intact, no edema Neurologic: Alert and oriented X 3, no focal deficits noted Psychologic: Affect normal, judgment normal Current Patient Data: Labs: Laboratory Tests Test 07/23/20 09:11 07/23/20 10:15 07/23/20 12:28 Urine Collection Type Unknown Urine Color Yellow Urine Clarity Clear Urine pH 6.5 (<5.0-8.0) Urine Specific [place] <=1.005 (1.000-1.030) Urine Protein Negative mg/dL (NEG-TRACE) Urine Glucose (UA) Negative mg/dL (NEG) Urine Ketones (Stick) Negative mg/dL (NEG) Urine Blood Negative (NEG) Urine Nitrite Negative (NEG) Urine Bilirubin Negative (NEG) Urine Urobilinogen Dipstick 0.2 mg/dL (0.2 mg/dL) Urine Leukocyte Esterase Negative (NEG) Urine RBC Occ /HPF (0-2) Urine WBC Occ /HPF (0-4) Urine Squamous Epithelial Cells Occ /LPF Urine Bacteria 0 /HPF (0-FEW) White Blood Count 6.7 x10^3/uL (4.0-11.0) Red Blood Count 4.23 x10^6/uL (4.30-5.70) L Hemoglobin 12.2 g/dL (13.0-17.5) L Hematocrit 36.5 % (39.0-53.0) L Mean Corpuscular Volume 86 fL (79-100) Mean Corpuscular Hemoglobin 29 pg (25-35) Mean Corpuscular Hemoglobin Concent 34 g/dL (31-37) Red Cell Distribution Width 14.9 % (11.5-14.5) H Platelet Count 317 x10^3/uL (140-400) Neutrophils (%) (Auto) 77 % (31-73) H Lymphocytes (%) (Auto) 8 % (24-48) L Monocytes (%) (Auto) 5 % (0-9) Eosinophils (%) (Auto) 10 % (0-3) H Basophils (%) (Auto) 1 % (0-3) Neutrophils # (Auto) 5.2 x10^3/uL (1.8-7.7) Lymphocytes # (Auto) 0.5 x10^3/uL (1.0-4.8) L Monocytes # (Auto) 0.3 x10^3/uL (0.0-1.1) Eosinophils # (Auto) 0.7 x10^3/uL (0.0-0.7) Basophils # (Auto) 0.0 x10^3/uL (0.0-0.2) D-Dimer (Maria Luz) 0.65 ug/mlFEU (0.00-0.50) H Sodium Level 137 mmol/L (136-145) Potassium Level 3.9 mmol/L (3.5-5.1) Chloride Level 101 mmol/L (98-107) Carbon Dioxide Level 32 mmol/L (21-32) Anion Gap 4 (6-14) L Blood Urea Nitrogen 11 mg/dL (8-26) Creatinine 1.0 mg/dL (0.7-1.3) Estimated GFR (Cockcroft-Gault) 78.5 BUN/Creatinine Ratio 11 (6-20) Glucose Level 122 mg/dL (70-99) H Calcium Level 9.7 mg/dL (8.5-10.1) Magnesium Level 1.9 mg/dL (1.8-2.4) Total Bilirubin 0.2 mg/dL (0.2-1.0) Aspartate Amino Transferase (AST) 15 U/L (15-37) Alanine Aminotransferase (ALT) 36 U/L (16-63) Alkaline Phosphatase 98 U/L (46-116) Troponin I Quantitative < 0.017 ng/mL (0.000-0.055) < 0.017 ng/mL (0.000-0.055) GQ-Pbf-G-Type Natriuretic Peptide 151 pg/mL (0-124) H Total Protein 7.1 g/dL (6.4-8.2) Albumin 3.1 g/dL (3.4-5.0) L Albumin/Globulin Ratio 0.8 (1.0-1.7) L Lipase 88 U/L (73-393) Thyroid Stimulating Hormone (TSH) 3.537 uIU/mL (0.358-3.74) Laboratory Tests 07/23/20 10:15 Laboratory Tests 07/23/20 10:15 Vital Signs: Vital Signs Date Time Temp Pulse Resp B/P (MAP) Pulse Ox O2 Delivery O2 Flow Rate FiO2 07/23/20 10:26 131 119/80 07/23/20 09:08 97.4 24 95 Room Air 97.4 EKG: EKG: @0920 Tachycardic rhythm at 123bpm concerning for Afib RVR, QRS 102ms, QT/QTc 334/484ms @1049 NSR at 78bpm, NO ST elevation, QRS 100ms, QT/QTc 386/444ms Radiology/Procedures: Radiology/Procedures: PROCEDURE: CT ANGIOGRAPHY CHEST CT arteriogram of the chest. HISTORY: Dyspnea, elevated d-dimer CT arteriogram of the chest was done using 100 mL Omnipaque 350 contrast. Patient's size creates beam hardening artifact. IV placement limits the contrast in the collecting systems. Sagittal and coronal MIP images were reconstructed. There is no mediastinal adenopathy. There is no pleural effusion. The upper aspect of the liver and spleen are unremarkable. Adrenal glands are normal. There is linear scarring or atelectasis in the lung bases. No other infiltrates are noted. There is no central pulmonary embolus. There are calcified nodes at the left hilum from granulomatous disease. IMPRESSION: 1. No pulmonary embolus noted. 2. Linear atelectasis without other infiltrates. PQRS Compliance Statement: One or more of the following individualized dose reduction techniques were utilized for this examination: 1. Automated exposure control 2. Adjustment of the mA and/or kV according to patient size 3. Use of iterative reconstruction technique Electronically signed by: Darrell Bradford MD (07/23/2020 1:10 PM) [facility] Course & Med Decision Making: Course & Med Decision Making Pertinent Labs and Imaging studies reviewed. (See chart for details) Patient presents with report of palpitations with concern for possible A. fib. Tachyarrhythmia noted on EKG most likely A. fib RVR. Labs obtained and posted to chart. Troponin x2 . D-dimer slightly elevated. CTA chest without acute process. Cannot exclude COVID-19 infection. COVID-19 testing pending. Patient with interval improvement of heart rate back into a normal sinus after 20 mg Cardizem bolus. Patient stable for discharge with outpatient follow-up with PCP/tobacco educator. Cardiology referral provided. Discussed findings and plan with patient, who acknowledges understanding and agreement. COVID-19 CRITERIA: The patient was evaluated during the global COVID-19 pandemic, and that diagnosis was suspected/considered upon their initial presentation. Their evaluation, treatment and testing was consistent with current guidelines for patients who present with complaints or symptoms that may be related to COVID-19. Christiano Disclaimer: Christiano Disclaimer: This electronic medical record was generated, in whole or in part, using a voice recognition dictation system. Departure Departure Impression: Primary Impression: Tachyarrhythmia Additional Impressions: Elevated d-dimer Suspected 2019 novel coronavirus infection Disposition: 01 DC HOME SELF CARE/HOMELESS Condition: IMPROVED Referrals: LETICIA MACDONALD MD (PCP) Patient Instructions: Atrial Fibrillation, [id number] Additional Instructions: Please follow closely with your tobacco educator You have been tested for or diagnosed with COVID-19. It is an infection caused by a new type of coronavirus. COVID-19 will cause cold-like or mild flu symptoms in most. It can cause more severe symptoms like problems breathing in some. There is no treatment for COVID-19. The body will clear the infection over time. Self-care will help to ease discomfort. Steps to Take: Self-Care Rest as needed. Healthy habits may help you feel better. Steps include: Choose healthy foods including fruits and vegetables. Drink water throughout the day. Get plenty of sleep each night. If you smoke, try to quit. It may ease breathing. Avoid alcohol. Keep Others Healthy The virus can spread to others. Droplets are released every time you sneeze or cough. The droplets can get into the mouth, nose, or eyes of people near you and lead to infection. To lower the chances of spreading COVID-19 to others: Stay at home until your doctor has said it is safe to leave. If you tested positive this will mean staying isolated until both of the following are true: At least 7 days have passed since the start of illness. You are free of fever for at least 72 hours without the use of medicine. During this time: - Avoid public areas, events, or transportation. Do not return to work or [facility] until your doctor has said it is safe to do so. - Call ahead if you need to go to a medical center. Let them know you may have COVID-19. It will help them guide you where to go. They may also ask you to wear a facemask when you come to the office. - If you call for emergency medical services, let them know you may have COVID- 19. While at home: - Try to avoid close contact with others. Stay about 6 feet away. - If possible, spend most of your time in a separate room from others. - Use a face mask if you will be in close contact with others such as sharing a room or vehicle. - Have someone wipe down common surfaces in the home. Use household fig caprifier every day on areas like doorknobs, counters, or sinks. - Cough or sneeze into a tissue. Throw the tissue away right after use. If a tissue is not available, cough or sneeze into your elbow. - Wash your hands often. Wash them after sneezing or coughing. Use soap and water and wash for at least 20 seconds. Alcohol based hand machine rug cleaner can be used if soap and water is not available. - Do not prepare food for others. Avoid sharing personal items like forks, spoons, or toothbrushes. - Avoid close contact with pets while you are sick. There is no evidence of the virus passing to pets. This is a safety step until more is known about this virus. Isolation can be frustrating. Social interaction can help. Keep in touch with friends and family through phone and tech options. You can still interact with others in your home, just keep a safe distance of about 6 feet. Follow-up: Your doctors office will check in with you to see if there are any changes in your health. You may be asked to keep track of symptoms to share with them. They will also let you know when you are clear to be in public again. Problems to Look Out For: Contact your doctor if your recovery is not going as you expect. Get emergency care if you have problems such as: - Trouble breathing - Nonstop chest pain or pressure - Changes in awareness, confusion, or problems waking - Lips or face have bluish color - Worsening of symptoms If you think you have an emergency, call for emergency medical services right away. As taken from [facility] COVID-19 Assessment: COVID-19 Patient Risks: Age 65 or older: No Sign of co-morbidity: Yes Exp to person + for COVID: No Exp to PUI: No Lower respiratory symptoms: Yes Fever: No PPE Use: Full PPE with N95 mask or PAPR: Yes Critical Care Time Critical care time was 30 minutes which includes time at bedside, spent in discussion of patient's care with specialists and/or family members, with interpretation of laboratory and/or radiological studies and is exclusive of procedures. JUAN DANIEL CARTER DO Jul 23, 2020 13:40
--- NOTE | 2020-07-25 10:19 | NUR ---
IP:Attempted to contact pt concerning COVID results. No answer. Left a voicemail to return the call.
--- NOTE | 2020-07-25 10:27 | NUR ---
IP: Pt returned call and I informed him of the negative COVID test. Pt verbalized understanding.
== END 2020-07-23 13:51 | disposition home or self-care (01) ==
LOC: ER 09:01
DX: I49.8 Other specified cardiac arrhythmias (principal); Z20.828 Contact with and (suspected) exposure to other viral communicable diseases; R79.89 Other specified abnormal findings of blood chemistry; R06.02 Shortness of breath; I48.20 Chronic atrial fibrillation, unspecified; F41.9 Anxiety disorder, unspecified; E11.9 Type 2 diabetes mellitus without complications; E78.00 Pure hypercholesterolemia, unspecified; F17.200 Nicotine dependence, unspecified, uncomplicated; Z85.46 Personal history of malignant neoplasm of prostate; Z90.89 Acquired absence of other organs; Z98.890 Other specified postprocedural states
CPT/HCPCS: 36415; 71275; 80053; 81001; 83690; 83735; 83880; 84443; 84484; 85025; 85379; 93005; 96361; 96374; 99285; C9803; J3490; J7030; Q9967; U0003

== ENCOUNTER 2020-10-14 16:04 | Emergency (ER) | payer MEDICAID ==
[~2020-10-14] VITALS: Ht 172.7 cm; Wt 204.0 kg
[2020-10-14] MEDS ORDERED: dilTIAZem IV PUSH 25 MG/5 ML VIAL IVP ONE ×2 (16:45→20:00)
[2020-10-14 16:53] LABS: BASO # 0.1 x10^3/uL (0.0-0.2); BASO % 1 % (0-3); EOS # 0.8 x10^3/uL (0.0-0.7); EOS % 13 % (0-3); HEMATOCRIT 39.3 % (39.0-53.0); HEMOGLOBIN 13.3 g/dL (13.0-17.5); LYMPH # 0.8 x10^3/uL (1.0-4.8); LYMPH % 12 % (24-48); MEAN CORPUSCULAR HEMOGLOBIN 29 pg (25-35); MEAN CORPUSCULAR HGB CONC 34 g/dL (31-37); MEAN CORPUSCULAR VOLUME 84 fL (79-100); MONO # 0.5 x10^3/uL (0.0-1.1); MONO % 8 % (0-9); NEUT # 4.4 x10^3/uL (1.8-7.7); NEUT % 67 % (31-73); PLATELET COUNT 263 x10^3/uL (140-400); RED BLOOD COUNT 4.67 x10^6/uL (4.30-5.70); RED CELL DISTRIBUTION WIDTH 16.1 % (11.5-14.5); WHITE BLOOD COUNT 6.5 x10^3/uL (4.0-11.0)
[2020-10-14 17:03] LABS: CALCIUM 9.3 mg/dL (8.5-10.1); GFR 78.2
[2020-10-14 17:11] LABS: ALBUMIN 3.3 g/dL (3.4-5.0); ALBUMIN/GLOBULIN RATIO 0.8 (1.0-1.7); MAGNESIUM 1.6 mg/dL (1.8-2.4); TOTAL BILIRUBIN 0.2 mg/dL (0.2-1.0); TOTAL PROTEIN 7.4 g/dL (6.4-8.2)
--- NOTE | 2020-10-14 18:21 | RAD ---
AP portable chest radiograph 10/14/2020 Clinical History: Tachycardia. An AP erect portable digital radiograph of the chest was obtained. Comparison study is dated 07/08/2020. The cardiac silhouette is borderline enlarged. The thoracic aorta is minimally tortuous. No acute pul monary infiltrate is seen. No pleural effusion or pneumothorax is noted. The osseous structures are g rossly intact. Impression: No acute abnormality is seen. Electronically signed by: Francisco Conley MD (10/14/2020 6:19 PM) [id number]
--- NOTE | 2020-10-14 19:52 | EKG ---
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
--- NOTE | 2020-10-14 20:15 | PDOC1 ---
History and Physical Date of Admission Date of Admission DATE: 10/14/20 TIME: 20:06 Identification/Chief Complaint Chief Complaint Tachycardia Source Source: Chart review, Patient History of Present Illness History of Present Illness Patient is a 55-year-old male with past medical history A. fib, who presents to the ED due to concerns of rapid heart rate. States he has been taking his medications as prescribed but his symptoms of rapid heart rate still occur intermittently. He does complain of some mid left chest pressure. Initial troponin <0.017. Chest x-ray was obtained and showed no acute process. Will admit patient for further medical management. Past Medical History Cardiovascular: AFIB, HTN, Hyperlipidemia Pulmonary: Asthma, Other CENTRAL NERVOUS SYSTEM: Other GI: GERD, Other Heme/Onc: No pertinent hx Hepatobiliary: No pertinent hx, Cholelithiasis Psych: Anxiety Musculoskeletal: Osteoarthritis, Other Rheumatologic: No pertinent hx Infectious disease: No pertinent hx Renal/: Prostate Ca., Urinary Incontinence Endocrine: Diabetes, Hypothyroidism Past Surgical History Past Surgical History: Arthroscopy, Cholecystectomy, Tonsillectomy, Other Family History Family History: High Cholestrol, Hypertension Social History Smoke: No ALCOHOL: none Drugs: None Current Medications Current Medications Current Medications Diltiazem HCl (Cardizem Iv Push) 20 mg 1X ONCE IVP Last administered on 10/14/20at 17:07; Start 10/14/20 at 16:45; Stop 10/14/20 at 16:46; Status DC Diltiazem HCl 125 mg/Sodium Chloride 125 ml @ 5 mls/hr CONT PRN IV SEE I/O RECORD Last administered on 10/14/20at 17:07; Start 10/14/20 at 16:45 Diltiazem HCl (Cardizem Iv Push) 25 mg 1X ONCE IVP ; Start 10/14/20 at 20:00; Stop 10/14/20 at 20:01; Status DC Active Scripts Active Naproxen 375 Mg Tablet 375 Mg PO TID Eliquis (Apixaban) 5 Mg Tablet 5 Mg PO BID Levothyroxine Sodium 75 Mcg Tablet 75 Mcg PO DAILY 90 Days Lisinopril 10 Mg Tablet 1 Tab PO DAILY 90 Days Metoprolol Tartrate 25 Mg Tablet 1 Tab PO BID 90 Days Reported Hydroxyzine Hcl 25 Mg Tablet 1 Tab PO Q8HRS PRN Simvastatin 20 Mg Tablet 20 Mg PO HS Furosemide 20 Mg Tablet 20 Mg PO DAILY PRN take 1-2 tabs a day as needed for swelling Ranitidine Hcl 150 Mg Tablet 1 Tab PO BID Proventil Hfa Inhaler (Albuterol Sulfate) 6.7 Gm Hfa.aer.ad 2 Puff IH QID Allergies Allergies: Coded Allergies: meperidine (Unverified Allergy, Severe, Shortness of Air, 10/12/14) ROS Review of System GENERAL: No history of weight change, weakness or fevers. SKIN: No bruising, hair changes or rashes. EYES: No blurred, double or loss of vision. NOSE AND THROAT: No history of nosebleeds, hoarseness or sore throat. HEART: Palpitations, chest pain. LUNGS: Denies cough, hemoptysis, wheezing or shortness of breath. GASTROINTESTINAL: Denies nausea, vomiting, abdominal pain. GENITOURINARY: Denies dysuria, frequency, urgency, hematuria. NEUROLOGIC: Denies history of numbness, tingling, tremor or weakness. PSYCHIATRIC: Denies anxiety, denies depression. ENDOCRINE: No history of heat or cold intolerance, polyuria or polydipsia. EXTREMITIES: Denies muscle weakness, joint pain, pain on walking or stiffness. Physical Exam Physical Exam General: Alert, Oriented X3, Cooperative, No acute distress HEENT: PERRLA, EOMI Lungs: Clear to auscultation, Normal air movement Heart: RRR, no murmurs Cardiovascular: S1, S2 Abdomen: Normal bowel sounds, Soft, No tenderness Extremities: No clubbing, No cyanosis Skin: No rashes, No significant lesion Neuro: Normal speech, Normal tone, Sensation intact Psych/Mental Status: Mental status NL, Mood NL Vitals Vitals Vital Signs Date Time Temp Pulse Resp B/P (MAP) Pulse Ox O2 Delivery O2 Flow Rate FiO2 10/14/20 18:25 122 18 125/46 (72) 96 Room Air 10/14/20 16:10 97.3 97.3 Labs Labs Laboratory Tests Test 10/14/20 16:34 White Blood Count 6.5 x10^3/uL (4.0-11.0) Red Blood Count 4.67 x10^6/uL (4.30-5.70) Hemoglobin 13.3 g/dL (13.0-17.5) Hematocrit 39.3 % (39.0-53.0) Mean Corpuscular Volume 84 fL (79-100) Mean Corpuscular Hemoglobin 29 pg (25-35) Mean Corpuscular Hemoglobin Concent 34 g/dL (31-37) Red Cell Distribution Width 16.1 % (11.5-14.5) Platelet Count 263 x10^3/uL (140-400) Neutrophils (%) (Auto) 67 % (31-73) Lymphocytes (%) (Auto) 12 % (24-48) Monocytes (%) (Auto) 8 % (0-9) Eosinophils (%) (Auto) 13 % (0-3) Basophils (%) (Auto) 1 % (0-3) Neutrophils # (Auto) 4.4 x10^3/uL (1.8-7.7) Lymphocytes # (Auto) 0.8 x10^3/uL (1.0-4.8) Monocytes # (Auto) 0.5 x10^3/uL (0.0-1.1) Eosinophils # (Auto) 0.8 x10^3/uL (0.0-0.7) Basophils # (Auto) 0.1 x10^3/uL (0.0-0.2) Sodium Level 139 mmol/L (136-145) Potassium Level 4.0 mmol/L (3.5-5.1) Chloride Level 102 mmol/L (98-107) Carbon Dioxide Level 29 mmol/L (21-32) Anion Gap 8 (6-14) Blood Urea Nitrogen 20 mg/dL (8-26) Creatinine 1.0 mg/dL (0.7-1.3) Estimated GFR (Cockcroft-Gault) 78.2 BUN/Creatinine Ratio 20 (6-20) Glucose Level 115 mg/dL (70-99) Calcium Level 9.3 mg/dL (8.5-10.1) Magnesium Level 1.6 mg/dL (1.8-2.4) Total Bilirubin 0.2 mg/dL (0.2-1.0) Aspartate Amino Transf (AST/SGOT) 37 U/L (15-37) Alanine Aminotransferase (ALT/SGPT) 59 U/L (16-63) Alkaline Phosphatase 108 U/L (46-116) Troponin I Quantitative < 0.017 ng/mL (0.000-0.055) WW-Ixt-M-Type Natriuretic Peptide 239 pg/mL (0-124) Total Protein 7.4 g/dL (6.4-8.2) Albumin 3.3 g/dL (3.4-5.0) Albumin/Globulin Ratio 0.8 (1.0-1.7) Thyroid Stimulating Hormone (TSH) 4.930 uIU/mL (0.358-3.74) Laboratory Tests Test 10/14/20 16:34 White Blood Count 6.5 x10^3/uL (4.0-11.0) Red Blood Count 4.67 x10^6/uL (4.30-5.70) Hemoglobin 13.3 g/dL (13.0-17.5) Hematocrit 39.3 % (39.0-53.0) Mean Corpuscular Volume 84 fL (79-100) Mean Corpuscular Hemoglobin 29 pg (25-35) Mean Corpuscular Hemoglobin Concent 34 g/dL (31-37) Red Cell Distribution Width 16.1 % (11.5-14.5) Platelet Count 263 x10^3/uL (140-400) Neutrophils (%) (Auto) 67 % (31-73) Lymphocytes (%) (Auto) 12 % (24-48) Monocytes (%) (Auto) 8 % (0-9) Eosinophils (%) (Auto) 13 % (0-3) Basophils (%) (Auto) 1 % (0-3) Neutrophils # (Auto) 4.4 x10^3/uL (1.8-7.7) Lymphocytes # (Auto) 0.8 x10^3/uL (1.0-4.8) Monocytes # (Auto) 0.5 x10^3/uL (0.0-1.1) Eosinophils # (Auto) 0.8 x10^3/uL (0.0-0.7) Basophils # (Auto) 0.1 x10^3/uL (0.0-0.2) Sodium Level 139 mmol/L (136-145) Potassium Level 4.0 mmol/L (3.5-5.1) Chloride Level 102 mmol/L (98-107) Carbon Dioxide Level 29 mmol/L (21-32) Anion Gap 8 (6-14) Blood Urea Nitrogen 20 mg/dL (8-26) Creatinine 1.0 mg/dL (0.7-1.3) Estimated GFR (Cockcroft-Gault) 78.2 BUN/Creatinine Ratio 20 (6-20) Glucose Level 115 mg/dL (70-99) Calcium Level 9.3 mg/dL (8.5-10.1) Magnesium Level 1.6 mg/dL (1.8-2.4) Total Bilirubin 0.2 mg/dL (0.2-1.0) Aspartate Amino Transf (AST/SGOT) 37 U/L (15-37) Alanine Aminotransferase (ALT/SGPT) 59 U/L (16-63) Alkaline Phosphatase 108 U/L (46-116) Troponin I Quantitative < 0.017 ng/mL (0.000-0.055) BJ-Jtd-U-Type Natriuretic Peptide 239 pg/mL (0-124) Total Protein 7.4 g/dL (6.4-8.2) Albumin 3.3 g/dL (3.4-5.0) Albumin/Globulin Ratio 0.8 (1.0-1.7) Thyroid Stimulating Hormone (TSH) 4.930 uIU/mL (0.358-3.74) Images Images PORTABLE CHEST 1V AP portable chest radiograph 10/14/2020 Clinical History: Tachycardia. An AP erect portable digital radiograph of the chest was obtained. Comparison study is dated 07/08/2020. The cardiac silhouette is borderline enlarged. The thoracic aorta is minimally tortuous. No acute pulmonary infiltrate is seen. No pleural effusion or pneumothorax is noted. The osseous structures are grossly intact. Impression: No acute abnormality is seen. VTE Prophylaxis Ordered VTE Prophylaxis Devices: No VTE Pharmacological Prophylaxi: Yes Assessment/Plan Assessment/Plan A. fib with RVR Hypomagnesemia Malnutrition Plan: Consultation placed to cardiology Provide additional bolus of her Cardizem and continue Cardizem infusion If no improvement will add digoxin 500 mcg, followed by 250 mcg 2-4 hours later, followed by 150 mcg 2-4 hours later, if needed. Replace magnesium Continue to trend troponins Echocardiogram 01/01/2020 showed normal left ventricular function with normal EF 55%, and normal LV wall motion. Resume home medications FEN - Cardiac diet PPX - Lovenox FULL CODE Dispo - inpatient for above Critical care time 37 minutes spent reviewing chart, reviewing imaging studies, frequent bedside evaluations, managing diltiazem infusion, discussion with nurses and ER provider. Justifications for Admission Other Justification DAVID LOTT MD Oct 14, 2020 20:15
--- NOTE | 2020-10-14 21:13 | PHYS DOC ---
Past Medical History Past Medical History: A-Fib, Anxiety, Cancer, Diabetes-Type II, High Cholesterol Additional Past Medical Histor: PROSTATE CA,A-FIB/RVR Past Surgical History: Tonsillectomy, Other Additional Past Surgical Histo: thyroidectomy, left shoulder Smoking Status: Former Smoker Alcohol Use: None Drug Use: None General Adult EDM: Chief Complaint: RAPID HEART RATE HPI: HPI: Patient is a 55 year old male with history of diabetes type 2, high cholesterol, anxiety, A. fib with RVR, and possible SVT, who presents to the ED today complaining of tachycardia that began around 1330 while doing housework. Patient denies any shortness of breath. He states he is on metoprolol and flecainide among other medicines. He states he follows up with a PCP as well as a board certified orthodontist at [facility] Review of Systems: Review of Systems: Constitutional: Denies fever or chills. [] Eyes: Denies change in visual acuity. [] HENT: Denies nasal congestion or sore throat. [] Respiratory: Denies cough or shortness of breath. [] Cardiovascular: Reports tachycardia GI: Denies abdominal pain, nausea, vomiting, bloody stools or diarrhea. [] : Denies dysuria. [] Musculoskeletal: Denies back pain or joint pain. [] Integument: Denies rash. [] Neurologic: Denies headache, focal weakness or sensory changes. [] Psychiatric: Denies depression or anxiety. [] Heart Score: C/O Chest Pain: N/A Risk Factors: Risk Factors: DM, Current or recent (<one month) smoker, HTN, HLP, family history of CAD, obesity. Risk Scores: Score 0 - 3: 2.5% MACE over next 6 weeks - Discharge Home Score 4 - 6: 20.3% MACE over next 6 weeks - Admit for Clinical Observation Score 7 - 10: 72.7% MACE over next 6 weeks - Early Invasive Strategies Current Medications: Current Medications Medications (Trade) Dose Ordered Sig/Jessy Start Time Stop Time Status Last Admin Dose Admin Diltiazem HCl (Cardizem Iv Push) 25 mg 1X ONCE 10/14/20 20:00 10/14/20 20:01 DC Diltiazem HCl 125 mg/Sodium Chloride 125 ml @ 5 mls/hr CONT PRN 10/14/20 16:45 10/14/20 17:07 5 MLS/HR Allergies: Allergies: Allergies Coded Allergies Type Severity Reaction Last Updated Verified meperidine Allergy Severe Shortness of Air 10/12/14 No Physical Exam: PE: Constitutional: Well developed, well nourished, no acute distress, non-toxic appearance. [] HENT: Normocephalic, atraumatic, bilateral external ears normal, oropharynx moist, no oral exudates, nose normal. [] Eyes: PERRLA, EOMI, conjunctiva normal, no discharge. [] Neck: Normal range of motion, no tenderness, supple, no stridor. [] Cardiovascular: irregular tachycardic Lungs & Thorax: Bilateral breath sounds clear to auscultation [] Abdomen: Bowel sounds normal, soft, no tenderness, no masses, no pulsatile masses. [] Skin: Warm, dry, no erythema, no rash. [] Back: No tenderness, no CVA tenderness. [] Extremities: No tenderness, no cyanosis, no clubbing, ROM intact, no edema. [] Neurologic: Alert and oriented X 3, normal motor function, normal sensory function, no focal deficits noted. [] Psychologic: Affect normal, judgement normal, mood normal. [] Current Patient Data: Labs: Laboratory Tests Test 10/14/20 16:34 White Blood Count 6.5 x10^3/uL (4.0-11.0) Red Blood Count 4.67 x10^6/uL (4.30-5.70) Hemoglobin 13.3 g/dL (13.0-17.5) Hematocrit 39.3 % (39.0-53.0) Mean Corpuscular Volume 84 fL (79-100) Mean Corpuscular Hemoglobin 29 pg (25-35) Mean Corpuscular Hemoglobin Concent 34 g/dL (31-37) Red Cell Distribution Width 16.1 % (11.5-14.5) H Platelet Count 263 x10^3/uL (140-400) Neutrophils (%) (Auto) 67 % (31-73) Lymphocytes (%) (Auto) 12 % (24-48) L Monocytes (%) (Auto) 8 % (0-9) Eosinophils (%) (Auto) 13 % (0-3) H Basophils (%) (Auto) 1 % (0-3) Neutrophils # (Auto) 4.4 x10^3/uL (1.8-7.7) Lymphocytes # (Auto) 0.8 x10^3/uL (1.0-4.8) L Monocytes # (Auto) 0.5 x10^3/uL (0.0-1.1) Eosinophils # (Auto) 0.8 x10^3/uL (0.0-0.7) H Basophils # (Auto) 0.1 x10^3/uL (0.0-0.2) Sodium Level 139 mmol/L (136-145) Potassium Level 4.0 mmol/L (3.5-5.1) Chloride Level 102 mmol/L (98-107) Carbon Dioxide Level 29 mmol/L (21-32) Anion Gap 8 (6-14) Blood Urea Nitrogen 20 mg/dL (8-26) Creatinine 1.0 mg/dL (0.7-1.3) Estimated GFR (Cockcroft-Gault) 78.2 BUN/Creatinine Ratio 20 (6-20) Glucose Level 115 mg/dL (70-99) H Calcium Level 9.3 mg/dL (8.5-10.1) Magnesium Level 1.6 mg/dL (1.8-2.4) L Total Bilirubin 0.2 mg/dL (0.2-1.0) Aspartate Amino Transferase (AST) 37 U/L (15-37) Alanine Aminotransferase (ALT) 59 U/L (16-63) Alkaline Phosphatase 108 U/L (46-116) Troponin I Quantitative < 0.017 ng/mL (0.000-0.055) RJ-Wyz-H-Type Natriuretic Peptide 239 pg/mL (0-124) H Total Protein 7.4 g/dL (6.4-8.2) Albumin 3.3 g/dL (3.4-5.0) L Albumin/Globulin Ratio 0.8 (1.0-1.7) L Thyroid Stimulating Hormone (TSH) 4.930 uIU/mL (0.358-3.74) H Laboratory Tests 10/14/20 16:34 Laboratory Tests 10/14/20 16:34 Vital Signs: Vital Signs Date Time Temp Pulse Resp B/P (MAP) Pulse Ox O2 Delivery O2 Flow Rate FiO2 10/14/20 18:25 122 18 125/46 (72) 96 Room Air 10/14/20 16:10 97.3 97.3 EKG: EK interpreted by Dr. Deng, supraventricular tachycardia 130 no STEMI [address] Santacruz sinus rhythm heart rate 83 no STEMI [] Radiology/Procedures: Radiology/Procedures: []PROCEDURE: PORTABLE CHEST 1V AP portable chest radiograph 10/14/2020 Clinical History: Tachycardia. An AP erect portable digital radiograph of the chest was obtained. Comparison study is dated 07/08/2020. The cardiac silhouette is borderline enlarged. The thoracic aorta is minimally tortuous. No acute pulmonary infiltrate is seen. No pleural effusion or p neumothorax is noted. The osseous structures are grossly intact. Impression: No acute abnormality is seen. Electronically signed by: Francisco Conley MD (10/14/2020 6:19 PM) [id number] DICTATED and SIGNED BY: FRANCISCO CONLEY MD DATE: 10/14/20 [id number] 0 Course & Med Decision Making: Course & Med Decision Making Pertinent Labs and Imaging studies reviewed. (See chart for details) This is a 55-year-old male patient with history of A. fib with RVR and possible SVT presenting today complaining of a fast heart rate that began around 1330. Arrives in the ED in A. fib with RVR heart rates in the 120s to 130s. Blood pressure holding up at 130s over 70s. Patient was given Cardizem push as well as drip. Heart rate was still in the 120s with blood pressures in the 130s over 60s. I had initially talked to who recommended digoxin Dr. Santacruz recommended 1 more dose of Cardizem before we go to digoxin Fortunately patient was meditating and converted himself from heart rates in the 120s to normal sinus rhythm with heart rate in the 80s. Patient was discharged to home Dragjosef Disclaimer: Christiano Disclaimer: This electronic medical record was generated, in whole or in part, using a voice recognition dictation system. Departure Departure Impression: Primary Impression: Atrial fibrillation with RVR Disposition: 01 DC HOME SELF CARE/HOMELESS Condition: STABLE Referrals: LETICIA MACDONALD MD (PCP) Follow-up with your board certified orthodontist and primary care doctor on Friday Patient Instructions: Atrial Fibrillation, [id number] Additional Instructions: You were seen in the emergency room with a fast heart rate. Please continue taking your medicines at home. Please follow-up with your board certified orthodontist and primary care doctor on Friday. Please come back to the ED at any point symptoms recur AYAAN TALBOT APRN Oct 14, 2020 21:13
[2020-10-14 21:25] VITALS: BP 128/61
--- NOTE | 2020-10-15 00:24 | EKG ---
[facility] [address] [place] [address] Test Date: 2020-10-14 Test Time: 20:29:43 Pat Name: DEVON CHAVARRIA Department: Room: Gender: M Clinical Nursing Intern: : 1965 Requested By: AYAAN TALBOT Order Number: [id number] Reading MD: Measurements Intervals Coleman Rate: 83 P: 35 NM: 194 QRS: -7 QRSD: 102 T: 23 QT: 384 QTc: 452 Interpretive Statements SINUS RHYTHM LEFTWARD AXIS OTHERWISE NORMAL ECG RI6.02 No previous ECG available for comparison
== END 2020-10-14 21:50 | disposition home or self-care (01) ==
LOC: ER 16:04
DX: I48.20 Chronic atrial fibrillation, unspecified (principal); R00.0 Tachycardia, unspecified; F41.9 Anxiety disorder, unspecified; E11.9 Type 2 diabetes mellitus without complications; E78.00 Pure hypercholesterolemia, unspecified; Z85.46 Personal history of malignant neoplasm of prostate; Z90.89 Acquired absence of other organs; Z87.891 Personal history of nicotine dependence
CPT/HCPCS: 36415; 71045; 80053; 83735; 83880; 84443; 84484; 85025; 93005; 96365; 96375; 99285; J3490

== ENCOUNTER 2020-11-01 08:38 | Inpatient (IN) | payer MEDICAID ==
[~2020-11-01] VITALS: Ht 172.7 cm; Wt 192.8 kg
--- NOTE | 2020-11-01 09:18 | RAD ---
EXAM: Chest, single view. HISTORY: Shortness of air. COMPARISON: 10/14/2020 FINDINGS: A frontal view of the chest obtained. There is no infiltrate, pleural effusion or pneumotho rax. The heart is normal in size. There is stable suspected chronic diffuse interstitial prominence. IMPRESSION: No acute pulmonary finding. Electronically signed by: Cindy Mims MD (11/01/2020 9:16 AM) [id number]
[2020-11-01 09:34] LABS: BASO # 0.1 x10^3/uL (0.0-0.2); BASO % 1 % (0-3); EOS # 0.7 x10^3/uL (0.0-0.7); EOS % 12 % (0-3); HEMATOCRIT 41.4 % (39.0-53.0); HEMOGLOBIN 13.7 g/dL (13.0-17.5); LYMPH # 0.8 x10^3/uL (1.0-4.8); LYMPH % 14 % (24-48); MEAN CORPUSCULAR HEMOGLOBIN 28 pg (25-35); MEAN CORPUSCULAR HGB CONC 33 g/dL (31-37); MEAN CORPUSCULAR VOLUME 85 fL (79-100); MONO # 0.5 x10^3/uL (0.0-1.1); MONO % 8 % (0-9); NEUT % 66 % (31-73); PLATELET COUNT 258 x10^3/uL (140-400); RED BLOOD COUNT 4.89 x10^6/uL (4.30-5.70); RED CELL DISTRIBUTION WIDTH 16.2 % (11.5-14.5); WHITE BLOOD COUNT 6.1 x10^3/uL (4.0-11.0)
[2020-11-01 09:40] LABS: CALCIUM 8.9 mg/dL (8.5-10.1); CREATININE 1.1 mg/dL (0.7-1.3)
[2020-11-01 09:47] LABS: ALBUMIN 3.6 g/dL (3.4-5.0); MAGNESIUM 1.7 mg/dL (1.8-2.4); TOTAL BILIRUBIN 0.2 mg/dL (0.2-1.0); TOTAL PROTEIN 7.2 g/dL (6.4-8.2)
[2020-11-01] MEDS ORDERED: MAGNESIUM SULFATE 1GM 100 ML IV ONE (10:15)
[2020-11-01] MEDS ORDERED: IV NORMAL SALINE 500ML BAG 500 ML IV ONE (10:45)
[2020-11-01] MEDS ORDERED: dilTIAZem IV PUSH 25 MG/5 ML VIAL IVP ONE (10:45)
--- NOTE | 2020-11-01 11:23 | PHYS DOC ---
Past Medical History Past Medical History: A-Fib, Anxiety, Cancer, Diabetes-Type II, High Cholesterol Additional Past Medical Histor: PROSTATE CA,A-FIB/RVR Past Surgical History: Tonsillectomy, Other Additional Past Surgical Histo: thyroidectomy, left shoulder Smoking Status: Former Smoker Alcohol Use: None Drug Use: None General Adult EDM: Chief Complaint: RAPID HEART RATE HPI: HPI: Patient is a 55 year old male who presented to ER due to substernal chest pain with heart palpitations and this morning. Patient denies any cough or fever, no abdominal pain, no nausea vomiting. Patient has history of atrial fibrillation, he is on flecainide. Patient took his flecainide this morning already but still have heart palpitation and chest pressure so he came here for evaluation. Patient had Eliquis at home but his doctor told him not to take the medication. Review of Systems: Review of Systems: Constitutional: Denies fever or chills. [] Eyes: Denies change in visual acuity. [] HENT: Denies nasal congestion or sore throat. [] Respiratory: Denies cough or shortness of breath. [] Cardiovascular: Positive for chest pain, no edema ,positive heart palpitation.] GI: Denies abdominal pain, nausea, vomiting, bloody stools or diarrhea. [] : Denies dysuria. [] Musculoskeletal: Denies back pain or joint pain. [] Integument: Denies rash. [] Neurologic: Denies headache, focal weakness or sensory changes. [] Endocrine: Denies polyuria or polydipsia. [] Lymphatic: Denies swollen glands. [] Psychiatric: Denies depression or anxiety. [] Heart Score: C/O Chest Pain: N/A HEART Score for Chest Pain: HEART Score for Chest Pain Response (Comments) Value History Moderately Suspicious 1 ECG Nonspecific Repolarizatio 1 Age >45 - < 65 1 Risk Factors >3 Risk Factors or Hx CAD 2 Troponin < Normal Limit 0 Total 5 Risk Factors: Risk Factors: DM, Current or recent (<one month) smoker, HTN, HLP, family history of CAD, obesity. Risk Scores: Score 0 - 3: 2.5% MACE over next 6 weeks - Discharge Home Score 4 - 6: 20.3% MACE over next 6 weeks - Admit for Clinical Observation Score 7 - 10: 72.7% MACE over next 6 weeks - Early Invasive Strategies Current Medications: Current Medications Medications (Trade) Dose Ordered Sig/Jessy Start Time Stop Time Status Last Admin Dose Admin Diltiazem HCl (Cardizem Iv Push) 20 mg 1X ONCE 11/01/20 10:45 11/01/20 10:46 DC Magnesium Sulfate/ Dextrose 100 ml @ 100 mls/hr 1X ONCE 11/01/20 10:15 11/01/20 11:14 DC 11/01/20 10:37 100 MLS/HR Sodium Chloride 500 ml @ 500 mls/hr 1X ONCE 11/01/20 10:45 11/01/20 11:44 Allergies: Allergies: Allergies Coded Allergies Type Severity Reaction Last Updated Verified meperidine Allergy Severe Shortness of Air 10/12/14 No Physical Exam: PE: Constitutional: Well developed, well nourished, no acute distress, non-toxic appearance. Morbidly obese HENT: Normocephalic, atraumatic, bilateral external ears normal, oropharynx moist, no oral exudates, nose normal. [] Eyes: PERRLA, EOMI, conjunctiva normal, no discharge. [] Neck: Normal range of motion, no tenderness, supple, no stridor. [] Cardiovascular: Tachycardia with irregular rhythm, no murmur [] Lungs & Thorax: Bilateral breath sounds clear to auscultation [] Abdomen: Bowel sounds normal, soft, no tenderness, no masses, no pulsatile masses. [] Skin: Warm, dry, no erythema, no rash. [] Back: No tenderness, no CVA tenderness. [] Extremities: No tenderness, no cyanosis, no clubbing, ROM intact, no edema. [] Neurologic: Alert and oriented X 3, normal motor function, normal sensory function, no focal deficits noted. [] Psychologic: Affect normal, judgement normal, mood normal. [] Current Patient Data: Labs: Laboratory Tests Test 11/01/20 09:11 White Blood Count 6.1 x10^3/uL (4.0-11.0) Red Blood Count 4.89 x10^6/uL (4.30-5.70) Hemoglobin 13.7 g/dL (13.0-17.5) Hematocrit 41.4 % (39.0-53.0) Mean Corpuscular Volume 85 fL (79-100) Mean Corpuscular Hemoglobin 28 pg (25-35) Mean Corpuscular Hemoglobin Concent 33 g/dL (31-37) Red Cell Distribution Width 16.2 % (11.5-14.5) H Platelet Count 258 x10^3/uL (140-400) Neutrophils (%) (Auto) 66 % (31-73) Lymphocytes (%) (Auto) 14 % (24-48) L Monocytes (%) (Auto) 8 % (0-9) Eosinophils (%) (Auto) 12 % (0-3) H Basophils (%) (Auto) 1 % (0-3) Neutrophils # (Auto) 4.0 x10^3/uL (1.8-7.7) Lymphocytes # (Auto) 0.8 x10^3/uL (1.0-4.8) L Monocytes # (Auto) 0.5 x10^3/uL (0.0-1.1) Eosinophils # (Auto) 0.7 x10^3/uL (0.0-0.7) Basophils # (Auto) 0.1 x10^3/uL (0.0-0.2) Sodium Level 140 mmol/L (136-145) Potassium Level 4.0 mmol/L (3.5-5.1) Chloride Level 103 mmol/L (98-107) Carbon Dioxide Level 29 mmol/L (21-32) Anion Gap 8 (6-14) Blood Urea Nitrogen 20 mg/dL (8-26) Creatinine 1.1 mg/dL (0.7-1.3) Estimated GFR (Cockcroft-Gault) 70.0 BUN/Creatinine Ratio 18 (6-20) Glucose Level 127 mg/dL (70-99) H Calcium Level 8.9 mg/dL (8.5-10.1) Magnesium Level 1.7 mg/dL (1.8-2.4) L Total Bilirubin 0.2 mg/dL (0.2-1.0) Aspartate Amino Transferase (AST) 22 U/L (15-37) Alanine Aminotransferase (ALT) 38 U/L (16-63) Alkaline Phosphatase 81 U/L (46-116) Troponin I Quantitative < 0.017 ng/mL (0.000-0.055) KG-Ffq-K-Type Natriuretic Peptide 307 pg/mL (0-124) H Total Protein 7.2 g/dL (6.4-8.2) Albumin 3.6 g/dL (3.4-5.0) Albumin/Globulin Ratio 1.0 (1.0-1.7) Lipase 123 U/L (73-393) Laboratory Tests 11/01/20 09:11 Laboratory Tests 11/01/20 09:11 Vital Signs: Vital Signs Date Time Temp Pulse Resp B/P (MAP) Pulse Ox O2 Delivery O2 Flow Rate FiO2 11/01/20 08:53 98.0 120 20 127/57 (80) 95 Room Air 98.0 EKG: EKG: EKG was done at 855, heart rate 120 beats per minutes, A. fib with RVR, no ST segment ovation. Radiology/Procedures: Radiology/Procedures: [][facility] [address] [place] [address] IMAGING REPORT Signed PATIENT: DEVON CHAVARRIA ACCOUNT: [id number] : 1965 LOCATION: ER AGE: 55 SEX: M EXAM STATUS: REG ER ORD. PHYSICIAN: DWAINE VILLALOBOS DO REASON: soa PROCEDURE: PORTABLE CHEST 1V EXAM: Chest, single view. HISTORY: Shortness of air. COMPARISON: 10/14/2020 FINDINGS: A frontal view of the chest obtained. There is no infiltrate, pleural effusion or pneumothorax. The heart is normal in size. There is stable suspected chronic diffuse interstitial prominence. IMPRESSION: No acute pulmonary finding. Electronically signed by: Cindy Herrera MD (11/01/2020 9:16 AM) [id number] DICTATED and SIGNED BY: CINDY HERRERA MD DATE: 11/01/20 [id number] 0 Course & Med Decision Making: Course & Med Decision Making Pertinent Labs and Imaging studies reviewed. (See chart for details) Patient is a 55-year-old male who presented to ER due to heart palpitation and chest pain, EKG showed atrial fibrillation, heart enzyme came back normal so far. Due to his risk factor patient be admitted for observation. Dragon Disclaimer: Dragon Disclaimer: This electronic medical record was generated, in whole or in part, using a voice recognition dictation system. Departure Departure Impression: Primary Impression: Chest pain Additional Impression: A-fib Disposition: 09 ADMITTED INPATIENT Admitting Physician: RC (DR. KING) Condition: STABLE Referrals: LETICIA MACDONALD MD (PCP) DWAINE VILLALOBOS DO Nov 01, 2020 11:23
[2020-11-01] MEDS ORDERED: ONDANSETRON PF 4 MG/2 ML VIAL. IV PRN (12:00)
--- NOTE | 2020-11-01 13:23 | PDOC2 ---
MADISON FARLEY PATTERN GENERATOR OPERATOR 11/01/20 1323: CARDIAC CONSULT DATE OF CONSULT Date of Consult DATE: 11/01/20 TIME: 13:19 REASON FOR CONSULT Reason for Consult: Chest pain AFIB REFERRING PHYSICIAN Referring Physician: Dr. Wilson SOURCE Source: Chart review, Patient HISTORY OF PRESENT ILLNESS HISTORY OF PRESENT ILLNESS This is a 55 yo male who presented secondary to chest pain/palpitations. Has a history of PAFIB/SVT and untreated BENTON. Follow with Dr. Steve ROSS. Is on metoprolol and flecainide for rhythm maintenance. Has had multiple reoccurrences of AFIB. Ablation has been recommended, but patient has been reluctant. Patient reports he woke up this morning around 4 am with palpitations. Could tell he was in AFIB. Got up and took shower, meditated and tried to relax. Continued to be in AFIB, so he came to the ED for further evaluation and treatment. Was in AFIB with HE near 120 upon arrival. He converted back to SR with IV metoprolol. Is on Eliquis for rhythm maintenance. Mag level 1.7 and was replaced. PAST MEDICAL HISTORY Cardiovascular: AFIB, HTN, Hyperlipidemia, Other Pulmonary: Other (BENTON) GI: GERD Psych: Anxiety Musculoskeletal: Other (Osteoarthritis, Other (morbid obesity)) Renal/: Prostate Ca. Endocrine: Diabetes, Hypothyroidism PAST SURGICAL HISTORY Past Surgical History Arthroscopy (left shoulder), Cholecystectomy, Tonsillectomy, Other (thyroidectomy) FAMILY HISTORY Family History: Hypertension SOCIAL HISTORY Social History Smoke: Quit ALCOHOL: none Drugs: None Lives: Alone CURRENT MEDICATIONS CURRENT MEDICATIONS Current Medications Medications (Trade) Dose Ordered Sig/Jessy Route PRN Reason Start Time Stop Time Status Last Admin Dose Admin Magnesium Sulfate/ Dextrose 100 ml @ 100 mls/hr 1X ONCE IV 11/01/20 10:15 11/01/20 11:14 DC 11/01/20 10:37 Diltiazem HCl (Cardizem Iv Push) 20 mg 1X ONCE IVP 11/01/20 10:45 11/01/20 10:46 DC 11/01/20 11:42 Sodium Chloride 500 ml @ 500 mls/hr 1X ONCE IV 11/01/20 10:45 11/01/20 11:44 DC 11/01/20 11:42 ALLERGIES ALLERGIES: Coded Allergies: meperidine (Unverified Allergy, Severe, Shortness of Air, 10/12/14) ROS Review of System 14 point ROS conducted with pertinent positives noted above in HPI PHYSICAL EXAM General: Alert, Oriented X3, Cooperative, No acute distress HEENT: Atraumatic Lungs: Other (diminished bases) Heart: Regular rate Abdomen: Soft, Other (obese) Extremities: No edema, Normal pulses Skin: No significant lesion Neuro: Normal speech, Sensation intact Psych/Mental Status: Mental status NL, Mood NL MUSCULOSKELETAL: Osteoarthritic changes both hands VITALS/I&O VITALS/I&O: Vital Signs Date Time Temp Pulse Resp B/P (MAP) Pulse Ox O2 Delivery O2 Flow Rate FiO2 11/01/20 11:42 121 120/81 11/01/20 08:53 98.0 20 95 Room Air 98.0 LABS Lab: Laboratory Tests Test 11/01/20 09:11 11/01/20 12:30 White Blood Count 6.1 x10^3/uL (4.0-11.0) Red Blood Count 4.89 x10^6/uL (4.30-5.70) Hemoglobin 13.7 g/dL (13.0-17.5) Hematocrit 41.4 % (39.0-53.0) Mean Corpuscular Volume 85 fL (79-100) Mean Corpuscular Hemoglobin 28 pg (25-35) Mean Corpuscular Hemoglobin Concent 33 g/dL (31-37) Red Cell Distribution Width 16.2 % (11.5-14.5) H Platelet Count 258 x10^3/uL (140-400) Neutrophils (%) (Auto) 66 % (31-73) Lymphocytes (%) (Auto) 14 % (24-48) L Monocytes (%) (Auto) 8 % (0-9) Eosinophils (%) (Auto) 12 % (0-3) H Basophils (%) (Auto) 1 % (0-3) Neutrophils # (Auto) 4.0 x10^3/uL (1.8-7.7) Lymphocytes # (Auto) 0.8 x10^3/uL (1.0-4.8) L Monocytes # (Auto) 0.5 x10^3/uL (0.0-1.1) Eosinophils # (Auto) 0.7 x10^3/uL (0.0-0.7) Basophils # (Auto) 0.1 x10^3/uL (0.0-0.2) Sodium Level 140 mmol/L (136-145) Potassium Level 4.0 mmol/L (3.5-5.1) Chloride Level 103 mmol/L (98-107) Carbon Dioxide Level 29 mmol/L (21-32) Anion Gap 8 (6-14) Blood Urea Nitrogen 20 mg/dL (8-26) Creatinine 1.1 mg/dL (0.7-1.3) Estimated GFR (Cockcroft-Gault) 70.0 BUN/Creatinine Ratio 18 (6-20) Glucose Level 127 mg/dL (70-99) H Calcium Level 8.9 mg/dL (8.5-10.1) Magnesium Level 1.7 mg/dL (1.8-2.4) L Total Bilirubin 0.2 mg/dL (0.2-1.0) Aspartate Amino Transferase (AST) 22 U/L (15-37) Alanine Aminotransferase (ALT) 38 U/L (16-63) Alkaline Phosphatase 81 U/L (46-116) Troponin I Quantitative < 0.017 ng/mL (0.000-0.055) < 0.017 ng/mL (0.000-0.055) KS-Riw-J-Type Natriuretic Peptide 307 pg/mL (0-124) H Total Protein 7.2 g/dL (6.4-8.2) Albumin 3.6 g/dL (3.4-5.0) Albumin/Globulin Ratio 1.0 (1.0-1.7) Lipase 123 U/L (73-393) Laboratory Tests 11/01/20 09:11 Laboratory Tests 11/01/20 09:11 EKG EKG --06/12/2020: 30 day MCOT monitor Conclusions: MCOT for approximately 30 days is abnormal demonstratin. Rare premature ventricular and atrial contractions with a burden of <1%. 2. The patient triggered events did correspond with a change in the sinus rhythm and rate, the mechanism is unclear, but this could suggest an atrial tachycardia/SVT. His fastest rate is 192 bpm which is NOT likely to be sinus rhythm, but the device report called it sinus tachycardia. 3. There was not evidence of atrial flutter or atrial fibrillation. 4. Lowest heart rates was noted at 7:38 AM at a rate of 32 bpm. 5. Abnormal monitor with possible SVT mechanism correlating to his symptoms. Will need to correlated episode of bradycardia clinically. ASSESSMENT/PLAN ASSESSMENT/PLAN 1. PSVT; Rate elevated upon arrival. EKG shows atrial tach. Convert to SR with IV Cardizem. Untreated BENTON likely contributing factors. Follows with EP, Dr. Ervin with [facility]. Patient has been reluctant to proceed with ablation therapy 2. Chest pain/pressure in setting of above. Resolved with rate control. Initial trop negative 3. Morbid obesity with untreated BENTON 4. Hypertension 5. Hyperlipidemia 6. Diabetes, II 7. Acquired hypothyroidism; TSH WNL 8. Hypomagnesemia; replaced Recommendations Resume metoprolol/flecainide for rhythm rate control ASA therapy Not of OAC as no evidence of clear AFIB and low [id number] per chart review Unable to uptitrate BB due to bradycardia noted on recent event monitor Patient to f/u with [facility], Dr. Wilson. Will likely need ablation Outpatient sleep study Discussed, encouraged weight loss DILIP ALFORD MD 11/01/20 1850: CARDIAC CONSULT ASSESSMENT/PLAN ASSESSMENT/PLAN The patient was seen and interviewed as well as examined at the bedside. The chart was reviewed. The case was discussed. Agree with the plan of care. MADISON FARLEY APRN Nov 01, 2020 13:23 DILIP ALFORD MD Nov 01, 2020 18:50
[2020-11-01] MEDS ORDERED: SENNOSIDES 8.6 MG TABLET PO PRN (13:30)
[2020-11-01] MEDS ORDERED: ACETAMINOPHEN 325 MG TABLET. PO PRN (13:30)
[2020-11-01] MEDS ORDERED: DEXTROSE 50% 25 GM / 50ML DISP.SYRIN. IV PRN (13:30)
[2020-11-01] MEDS ORDERED: DOCUSATE SODIUM 100 MG CAPSULE. PO PRN (13:30)
[2020-11-01] MEDS ORDERED: ONDANSETRON PF 4 MG/2 ML VIAL. IVP PRN (13:30)
--- NOTE | 2020-11-01 13:33 | PDOC1 ---
History and Physical Date of Service: DOS: DATE: 11/01/20 TIME: 13:24 Chief Complaint: Chief Complain: Irregular heart rate History of Present Illness: HPI: 55-year-old male with past medical history of atrial fibrillation, anxiety prostate cancer and diabetes mellitus type 2 who comes to the ED due to chest pressure and irregular heart rate. Patient was found to be in the 140s and he was given a Cardizem bolus. Patient does take flecainide at home. Patient also did complain of chest pressure. Denies fevers, shortness of breath, abdominal pain, diarrhea or dysuria. Past Medical/Surgical History: PMH/PSH: Past Medical History: A-Fib, Anxiety, Cancer, Diabetes-Type II, High Cholesterol, PROSTATE CA,A-FIB/RVR Past Surgical History: Tonsillectomy, thyroidectomy, left shoulder Allergies: Allergies: Coded Allergies: meperidine (Unverified Allergy, Severe, Shortness of Air, 10/12/14) Family History: Family History: Reviewed with no relevant findings Social History: Social History: Smoking Status: Former Smoker Alcohol Use: None Drug Use: None Current Medications: Current Medications Current Medications Magnesium Sulfate/ Dextrose 100 ml @ 100 mls/hr 1X ONCE IV Last administered on 11/01/20at 10:37; Start 11/01/20 at 10:15; Stop 11/01/20 at 11:14; Status DC Diltiazem HCl (Cardizem Iv Push) 20 mg 1X ONCE IVP Last administered on 11/01/20at 11:42; Start 11/01/20 at 10:45; Stop 11/01/20 at 10:46; Status DC Sodium Chloride 500 ml @ 500 mls/hr 1X ONCE IV Last administered on 11/01/20at 11:42; Start 11/01/20 at 10:45; Stop 11/01/20 at 11:44; Status DC Ondansetron HCl (Zofran) 4 mg PRN Q8HRS PRN IV NAUSEA/VOMITING; Start 11/01/20 at 12:00; Stop 11/02/20 at 11:59 Active Scripts Active Naproxen 375 Mg Tablet 375 Mg PO TID Eliquis (Apixaban) 5 Mg Tablet 5 Mg PO BID Levothyroxine Sodium 75 Mcg Tablet 75 Mcg PO DAILY 90 Days Lisinopril 10 Mg Tablet 1 Tab PO DAILY 90 Days Metoprolol Tartrate 25 Mg Tablet 1 Tab PO BID 90 Days Reported Hydroxyzine Hcl 25 Mg Tablet 1 Tab PO Q8HRS PRN Simvastatin 20 Mg Tablet 20 Mg PO HS Furosemide 20 Mg Tablet 20 Mg PO DAILY PRN take 1-2 tabs a day as needed for swelling Ranitidine Hcl 150 Mg Tablet 1 Tab PO BID Proventil Hfa Inhaler (Albuterol Sulfate) 6.7 Gm Hfa.aer.ad 2 Puff IH QID ROS: Review of Systems Review of System REVIEW OF SYSTEMS: GENERAL: Denies weakness SKIN: No bruising, hair changes or rashes. EYES: No blurred, double or loss of vision. NOSE AND THROAT: No history of nosebleeds, hoarseness or sore throat. HEART: No history of palpitations, chest pain or shortness of breath on exertion. LUNGS: Denies cough, hemoptysis, wheezing or shortness of breath. GASTROINTESTINAL: Denies changes in appetite, nausea, vomiting, diarrhea or constipation. GENITOURINARY: No history of frequency, urgency, hesitancy or nocturia. NEUROLOGIC: Denies history of numbness, tingling, or tremor. PSYCHIATRIC: No history of panic, anxiety or depression. ENDOCRINE: No history of heat or cold intolerance, polyuria or polydipsia. EXTREMITIES: Denies joint pain, pain on walking or stiffness. Physical Exam: Vital Signs: Vital Signs Date Time Temp Pulse Resp B/P (MAP) Pulse Ox O2 Delivery O2 Flow Rate FiO2 11/01/20 11:42 121 120/81 11/01/20 08:53 98.0 20 95 Room Air 98.0 Physcial Exam: GEN: No apparent distress. Alert and oriented HEENT: Normal cephalic, atraumatic, external auditory canals are patent EYES: Extraocular muscles are intact, pupil are equally round and reactive to light and accommodation MUSCULOSKELETAL: Well developed , well nourished, good range of motion ENDOCRINE: No thyromegaly was palpated LYMPHATICS: No cervical chain or axillary nodes were noted HEMATOPOIETIC: No bruising NECK: Supple, no JVD, no thyromegaly was noted LUNGS: Clear to auscultation in all lung whittaker without rhonchi or wheezing HEART: RRR, S!, S2 present. Peripheral pulses intact, no obvious murmurs noted ABDOMEN: Soft, nontender. Positive bowel sounds, no organomegaly, normal bowel sounds EXTREMITIES: Without clubbing, cyanosis, or edema. Pedal pulses intact. Negative Homans sign NEUROLOGIC: Normal speech and tone. A&O x 3, moves all extremities, no obvi ous focal deficits PSYCHIATRIC: Normal affect, normal mood. Stable SKIN: No ulcerations or rashes, good skin turgor, no jaundice VASCULAR: Good capillary refill, neurovascular bundle appears to be intact Labs: Labs: Laboratory Tests Test 11/01/20 09:11 11/01/20 12:30 White Blood Count 6.1 x10^3/uL (4.0-11.0) Red Blood Count 4.89 x10^6/uL (4.30-5.70) Hemoglobin 13.7 g/dL (13.0-17.5) Hematocrit 41.4 % (39.0-53.0) Mean Corpuscular Volume 85 fL (79-100) Mean Corpuscular Hemoglobin 28 pg (25-35) Mean Corpuscular Hemoglobin Concent 33 g/dL (31-37) Red Cell Distribution Width 16.2 % (11.5-14.5) Platelet Count 258 x10^3/uL (140-400) Neutrophils (%) (Auto) 66 % (31-73) Lymphocytes (%) (Auto) 14 % (24-48) Monocytes (%) (Auto) 8 % (0-9) Eosinophils (%) (Auto) 12 % (0-3) Basophils (%) (Auto) 1 % (0-3) Neutrophils # (Auto) 4.0 x10^3/uL (1.8-7.7) Lymphocytes # (Auto) 0.8 x10^3/uL (1.0-4.8) Monocytes # (Auto) 0.5 x10^3/uL (0.0-1.1) Eosinophils # (Auto) 0.7 x10^3/uL (0.0-0.7) Basophils # (Auto) 0.1 x10^3/uL (0.0-0.2) Sodium Level 140 mmol/L (136-145) Potassium Level 4.0 mmol/L (3.5-5.1) Chloride Level 103 mmol/L (98-107) Carbon Dioxide Level 29 mmol/L (21-32) Anion Gap 8 (6-14) Blood Urea Nitrogen 20 mg/dL (8-26) Creatinine 1.1 mg/dL (0.7-1.3) Estimated GFR (Cockcroft-Gault) 70.0 BUN/Creatinine Ratio 18 (6-20) Glucose Level 127 mg/dL (70-99) Calcium Level 8.9 mg/dL (8.5-10.1) Magnesium Level 1.7 mg/dL (1.8-2.4) Total Bilirubin 0.2 mg/dL (0.2-1.0) Aspartate Amino Transf (AST/SGOT) 22 U/L (15-37) Alanine Aminotransferase (ALT/SGPT) 38 U/L (16-63) Alkaline Phosphatase 81 U/L (46-116) Troponin I Quantitative < 0.017 ng/mL (0.000-0.055) < 0.017 ng/mL (0.000-0.055) NY-Rdo-L-Type Natriuretic Peptide 307 pg/mL (0-124) Total Protein 7.2 g/dL (6.4-8.2) Albumin 3.6 g/dL (3.4-5.0) Albumin/Globulin Ratio 1.0 (1.0-1.7) Lipase 123 U/L (73-393) Laboratory Tests Test 11/01/20 09:11 11/01/20 12:30 White Blood Count 6.1 x10^3/uL (4.0-11.0) Red Blood Count 4.89 x10^6/uL (4.30-5.70) Hemoglobin 13.7 g/dL (13.0-17.5) Hematocrit 41.4 % (39.0-53.0) Mean Corpuscular Volume 85 fL (79-100) Mean Corpuscular Hemoglobin 28 pg (25-35) Mean Corpuscular Hemoglobin Concent 33 g/dL (31-37) Red Cell Distribution Width 16.2 % (11.5-14.5) Platelet Count 258 x10^3/uL (140-400) Neutrophils (%) (Auto) 66 % (31-73) Lymphocytes (%) (Auto) 14 % (24-48) Monocytes (%) (Auto) 8 % (0-9) Eosinophils (%) (Auto) 12 % (0-3) Basophils (%) (Auto) 1 % (0-3) Neutrophils # (Auto) 4.0 x10^3/uL (1.8-7.7) Lymphocytes # (Auto) 0.8 x10^3/uL (1.0-4.8) Monocytes # (Auto) 0.5 x10^3/uL (0.0-1.1) Eosinophils # (Auto) 0.7 x10^3/uL (0.0-0.7) Basophils # (Auto) 0.1 x10^3/uL (0.0-0.2) Sodium Level 140 mmol/L (136-145) Potassium Level 4.0 mmol/L (3.5-5.1) Chloride Level 103 mmol/L (98-107) Carbon Dioxide Level 29 mmol/L (21-32) Anion Gap 8 (6-14) Blood Urea Nitrogen 20 mg/dL (8-26) Creatinine 1.1 mg/dL (0.7-1.3) Estimated GFR (Cockcroft-Gault) 70.0 BUN/Creatinine Ratio 18 (6-20) Glucose Level 127 mg/dL (70-99) Calcium Level 8.9 mg/dL (8.5-10.1) Magnesium Level 1.7 mg/dL (1.8-2.4) Total Bilirubin 0.2 mg/dL (0.2-1.0) Aspartate Amino Transf (AST/SGOT) 22 U/L (15-37) Alanine Aminotransferase (ALT/SGPT) 38 U/L (16-63) Alkaline Phosphatase 81 U/L (46-116) Troponin I Quantitative < 0.017 ng/mL (0.000-0.055) < 0.017 ng/mL (0.000-0.055) YI-Jxw-R-Type Natriuretic Peptide 307 pg/mL (0-124) Total Protein 7.2 g/dL (6.4-8.2) Albumin 3.6 g/dL (3.4-5.0) Albumin/Globulin Ratio 1.0 (1.0-1.7) Lipase 123 U/L (73-393) Images: Images CXR Impression: 1. No acute cardiopulmonary process. Assessment/Plan Assessment/Plan Intermittent atrial fibrillation with RVR Hypomagnesemia Admit to medicine for further management Continue IV Cardizem drip Cardiology consult Echocardiogram Pending TSH Continue telemetry monitoring Eliquis for DVT prophylaxis Protonix GI prophylaxis ADA diet Full code Discussed with RN and S Disposition inpatient management as above Surrogate decision maker is undesignated Justifications for Admission Other Justification IMAN KING MD Nov 01, 2020 13:33
[2020-11-01] MEDS ORDERED: ASPI-630 PO (15:17)
[2020-11-01] MEDS ORDERED: VITA1TAB31 PO (15:17)
[2020-11-01] MEDS ORDERED: METO50TA6 PO (15:17)
[2020-11-01] MEDS ORDERED: OMEP20CA16 PO (15:17)
[2020-11-01] MEDS ORDERED: METF850T8 PO (15:17)
[2020-11-01] MEDS ORDERED: TAMS0.4C97 PO (15:17)
[2020-11-01] MEDS ORDERED: COLC0.6T45 PO (15:17)
[2020-11-01] MEDS ORDERED: ALBU2.5V14 NEB (15:17)
[2020-11-01] MEDS ORDERED: FLUT1BLS12 IH (15:17)
[2020-11-01] MEDS ORDERED: ASCO500C9 PO (15:17)
[2020-11-01] MEDS ORDERED: ALBU2.5V8 IH (15:17)
[2020-11-01] MEDS ORDERED: FLEC100T PO (15:17)
[2020-11-01] MEDS ORDERED: MELO7.5T29 PO (15:17)
[2020-11-01] MEDS ORDERED: CYAN500T17 PO (15:17)
[2020-11-01] MEDS ORDERED: [UNRECOGNIZED DRUG - CODE] PO (15:17)
[2020-11-01 15:47] VITALS: BP 145/86
[2020-11-01] MEDS ORDERED: [UNRECOGNIZED DRUG - OTHER] IH PRN (16:15)
[2020-11-01] MEDS ORDERED: SALMETEROL IH PRN (16:15)
[2020-11-01] MEDS ORDERED: NON FORMULARY ITEM (Albuterol Sulfate (Albuterol Sulfate Conc Neb Soln) 2.5 MG) NEB PRN (16:15)
[2020-11-01] MEDS ORDERED: FLUTICASONE PROPION IH PRN (16:15)
[2020-11-01] MEDS ORDERED: ALBUTEROL SULFATE 2.5 MG/3 ML NEBU. NEB PRN (16:30)
[2020-11-01] MEDS ORDERED: INSULIN LISPRO 300 UNITS/3 ML VIAL. SQ SCH (17:00)
[2020-11-01] MEDS ORDERED: NON FORMULARY ITEM (Albuterol Sulfate (Proventil Hfa Inhaler) 2 PUFF) IH SCH (17:00)
--- NOTE | 2020-11-01 17:29 | DISCH ---
DISCHARGE INSTRUCTIONS Condition on Discharge Condition on Discharge: Stable Activity After Discharge Activity Instructions for Disc: Activity as tolerated Exercise Instruction after Dis: Progress as tolerated Driving Instructions after Dis: Do not drive today Weight Bearing Status after Di: As tolerated Diet after Discharge Diet after Discharge: Cardiac, Diabetic No Calorie Level Diet Texture: Regular Liquid Texture: Thin Liquid Swallowing Supervision: None needed Wound Incision Care Wound/Incision Care: No wound care needed Checks after Discharge Checks after discharge: Check blood press - daily, Check blood sugar, ac/hs, Check your Temp as needed, Weigh Yourself Daily Follow-Up Follow up with: PCP within 2 weeks of discharge Follow Up With: Cardiology as needed Treatment/Equipment after DC Adaptive Equipment Issued: IMAN Sierra MD Nov 01, 2020 17:29
--- NOTE | 2020-11-01 18:12 | EKG ---
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
--- NOTE | 2020-11-01 18:12 | EKG ---
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
--- NOTE | 2020-11-01 19:19 | NUR ---
Discharge Note: PATIENT ADMITTED AND DISCHARGED SAME DAY DEVON CHAVARRIA Discharge instructions and discharge home medications reviewed with Patient and a copy given. All questions have been answered and understanding verbalized. The following instructions and handouts were given: DISCHARGE INSTRUCTIONS. Discontinued lines and drains: Peripheral IV intact. Patient discharged to Home or Self Care withSelfvia Wheelchair
[2020-11-01] MEDS ORDERED: BUDESONIDE 0.5 MG/2 ML NEBU. NEB SCH (20:00)
[2020-11-01] MEDS ORDERED: ALBUTEROL SULFATE 2.5 MG/3 ML NEBU. NEB SCH (20:00)
[2020-11-01] MEDS ORDERED: METOPROLOL TART IMMED RELEASE 50 MG TABLET. PO SCH (21:00)
[2020-11-01] MEDS ORDERED: SIMVASTATIN 20 MG TABLET PO SCH (21:00)
[2020-11-01] MEDS ORDERED: FLECAINIDE ACETATE 50 MG TABLET. PO SCH (21:00)
[2020-11-01] MEDS ORDERED: APIXABAN 5 MG TABLET. PO SCH (21:00)
[2020-11-02] MEDS ORDERED: LEVOTHYROXINE 75 MCG TABLET PO SCH (06:00)
[2020-11-02] MEDS ORDERED: PANTOPRAZOLE 40 MG TABLET.DR. PO SCH (07:30)
[2020-11-02] MEDS ORDERED: LISINOPRIL 10 MG TABLET PO SCH (09:00)
[2020-11-02] MEDS ORDERED: TAMSULOSIN 0.4 MG CAP.ER.24H. PO SCH (09:00)
[2020-11-02] MEDS ORDERED: COLCHICINE 0.6 MG TABLET PO SCH (09:00)
[2020-11-02] MEDS ORDERED: CYANOCOBALAMIN (VITAMIN B-12) 1,000 MCG TABLET. PO SCH (09:00)
[2020-11-02] MEDS ORDERED: ASCORBIC ACID 1,000 MG TABLET PO SCH (09:00)
[2020-11-02] MEDS ORDERED: ASPIRIN CHEWABLE 81 MG TABLET. PO SCH (09:00)
[2020-11-02] MEDS ORDERED: CHOLECALCIFEROL (VITAMIN D3) 1,000 UNIT TABLET PO SCH (09:00)
== END 2020-11-01 18:30 | disposition home or self-care (01) | DRG 309 ==
LOC: ER 08:38 → ED HOLD 11:25 → 2 NORTH 14:44
PROVIDERS: ADMIT Internal Medicine; ATTEND Internal Medicine
DX: I48.0 Paroxysmal atrial fibrillation (principal); Z68.44 Body mass index [BMI] 60.0-69.9, adult; I47.1 Supraventricular tachycardia; F41.9 Anxiety disorder, unspecified; K21.9 Gastro-esophageal reflux disease without esophagitis; M19.90 Unspecified osteoarthritis, unspecified site; E89.0 Postprocedural hypothyroidism; E83.42 Hypomagnesemia; E78.5 Hyperlipidemia, unspecified; I10 Essential (primary) hypertension; E11.9 Type 2 diabetes mellitus without complications; E66.01 Morbid (severe) obesity due to excess calories; E78.00 Pure hypercholesterolemia, unspecified; Z85.46 Personal history of malignant neoplasm of prostate; Z79.01 Long term (current) use of anticoagulants; Z87.891 Personal history of nicotine dependence; Z90.49 Acquired absence of other specified parts of digestive tract; Z88.8 Allergy status to other drugs, medicaments and biological substances; Z82.49 Family history of ischemic heart disease and other diseases of the circulatory system; G47.33 Obstructive sleep apnea (adult) (pediatric)
CPT/HCPCS: 36415; 71045; 80053; 82962; 83690; 83735; 83880; 84443; 84484; 85025; 93005; 96361; 96365; 96375; J3475; J3490; J7040; 99285-25; G0378

== ENCOUNTER 2021-02-06 11:09 | Observation (INO) | payer MEDICAID ==
[~2021-02-06] VITALS: Ht 172.7 cm; Wt 188.6 kg
[~2021-02-06 11:09] MED LIST changes: +ALBU2.5V14 NEB; +ALBU2.5V8 IH; +ASCO500C9 PO; +ASPI-630 PO; +COLC0.6T45 PO; +CYAN500T17 PO; +FLEC100T PO; +FLUT1BLS12 IH; +MELO7.5T29 PO; +METF850T8 PO; +METO50TA6 PO; +OMEP20CA16 PO; +TAMS0.4C97 PO; +VITA1TAB31 PO; +[UNRECOGNIZED DRUG - CODE] PO
--- NOTE | 2021-02-06 11:54 | RAD ---
AP chest. HISTORY: Short of air, chest pain AP view was taken of the chest. Heart is upper normal in size. There is no pneumothorax or pleural ef fusion. There are no confluent infiltrates. There is scarring along the left heart border unchanged f rom the old study. IMPRESSION: 1. No acute infiltrates. Electronically signed by: Darrell Bradford MD (02/06/2021 11:51 AM) [id number]
[2021-02-06 12:24] LABS: BASO % 1 % (0-3); EOS # 0.4 x10^3/uL (0.0-0.7); EOS % 7 % (0-3); HEMATOCRIT 39.2 % (39.0-53.0); HEMOGLOBIN 13.2 g/dL (13.0-17.5); LYMPH # 0.8 x10^3/uL (1.0-4.8); LYMPH % 12 % (24-48); MEAN CORPUSCULAR HEMOGLOBIN 29 pg (25-35); MEAN CORPUSCULAR HGB CONC 34 g/dL (31-37); MEAN CORPUSCULAR VOLUME 87 fL (79-100); MONO # 0.4 x10^3/uL (0.0-1.1); MONO % 6 % (0-9); NEUT % 75 % (31-73); PLATELET COUNT 272 x10^3/uL (140-400); RED BLOOD COUNT 4.53 x10^6/uL (4.30-5.70); RED CELL DISTRIBUTION WIDTH 14.6 % (11.5-14.5); WHITE BLOOD COUNT 6.6 x10^3/uL (4.0-11.0)
[2021-02-06] MEDS ORDERED: DIGOXIN IV 500 MCG/2 ML AMPUL. IV ONE (12:45)
[2021-02-06 12:55] LABS: ALBUMIN 3.2 g/dL (3.4-5.0); ALBUMIN/GLOBULIN RATIO 0.8 (1.0-1.7); CALCIUM 9.2 mg/dL (8.5-10.1); GFR 78.2; MAGNESIUM 1.9 mg/dL (1.8-2.4); TOTAL BILIRUBIN 0.3 mg/dL (0.2-1.0)
--- NOTE | 2021-02-06 13:35 | PHYS DOC ---
Past Medical History Past Medical History: A-Fib, Anxiety, Cancer, Diabetes-Type II, High Cholesterol Additional Past Medical Histor: PROSTATE CA,A-FIB/RVR, SVT Past Surgical History: Tonsillectomy, Other Additional Past Surgical Histo: thyroidectomy, left shoulder Smoking Status: Never Smoker Alcohol Use: None Drug Use: None General Adult EDM: Chief Complaint: RAPID HEART RATE HPI: HPI: Patient is a 55 year old male who present to ER for evaluation of rapid heart rate and heart palpitations that started at 10 AM today. Patient said he has history of atrial fibrillation. He is on flecainide and metoprolol at home. Patient took his medication but did not feel any better so he came in for evaluation. Patient denies any cough or fever. Patient denies any trouble breathing. Patient says he is fully vaccinated for COVID-19. Review of Systems: Review of Systems: Constitutional: Denies fever or chills. [] Eyes: Denies change in visual acuity. [] HENT: Denies nasal congestion or sore throat. [] Respiratory: Denies cough or shortness of breath. [] Cardiovascular: Denies chest pain or edema. Positive for heart palpitation and rapid heart rate GI: Denies abdominal pain, nausea, vomiting, bloody stools or diarrhea. [] : Denies dysuria. [] Musculoskeletal: Denies back pain or joint pain. [] Integument: Denies rash. [] Neurologic: Denies headache, focal weakness or sensory changes. [] Endocrine: Denies polyuria or polydipsia. [] Lymphatic: Denies swollen glands. [] Psychiatric: Denies depression or anxiety. [] Heart Score: C/O Chest Pain: N/A Risk Factors: Risk Factors: DM, Current or recent (<one month) smoker, HTN, HLP, family history of CAD, obesity. Risk Scores: Score 0 - 3: 2.5% MACE over next 6 weeks - Discharge Home Score 4 - 6: 20.3% MACE over next 6 weeks - Admit for Clinical Observation Score 7 - 10: 72.7% MACE over next 6 weeks - Early Invasive Strategies Current Medications: Current Medications Medications (Trade) Dose Ordered Sig/Jessy Start Time Stop Time Status Last Admin Dose Admin Digoxin (Lanoxin) 500 mcg 1X ONCE 02/06/21 12:45 02/06/21 12:46 DC 02/06/21 12:51 500 MCG Allergies: Allergies: Allergies Coded Allergies Type Severity Reaction Last Updated Verified meperidine Allergy Severe Shortness of Air 10/12/14 No Physical Exam: PE: Constitutional: Well developed, well nourished, no acute distress, non-toxic appearance. Morbidly obese HENT: Normocephalic, atraumatic, bilateral external ears normal, oropharynx moist, no oral exudates, nose normal. [] Eyes: PERRLA, EOMI, conjunctiva normal, no discharge. [] Neck: Normal range of motion, no tenderness, supple, no stridor. [] Cardiovascular: rapid heart rate, regular rhythm, no murmur [] Lungs & Thorax: Bilateral breath sounds clear to auscultation [] Abdomen: Bowel sounds normal, soft, no tenderness, no masses, no pulsatile masses. [] Skin: Warm, dry, no erythema, no rash. [] Back: No tenderness, no CVA tenderness. [] Extremities: No tenderness, no cyanosis, no clubbing, ROM intact, no edema. [] Neurologic: Alert and oriented X 3, normal motor function, normal sensory function, no focal deficits noted. [] Psychologic: Affect normal, judgement normal, mood normal. [] Current Patient Data: Labs: Laboratory Tests Test 02/06/21 11:55 White Blood Count 6.6 x10^3/uL (4.0-11.0) Red Blood Count 4.53 x10^6/uL (4.30-5.70) Hemoglobin 13.2 g/dL (13.0-17.5) Hematocrit 39.2 % (39.0-53.0) Mean Corpuscular Volume 87 fL (79-100) Mean Corpuscular Hemoglobin 29 pg (25-35) Mean Corpuscular Hemoglobin Concent 34 g/dL (31-37) Red Cell Distribution Width 14.6 % (11.5-14.5) H Platelet Count 272 x10^3/uL (140-400) Neutrophils (%) (Auto) 75 % (31-73) H Lymphocytes (%) (Auto) 12 % (24-48) L Monocytes (%) (Auto) 6 % (0-9) Eosinophils (%) (Auto) 7 % (0-3) H Basophils (%) (Auto) 1 % (0-3) Neutrophils # (Auto) 5.0 x10^3/uL (1.8-7.7) Lymphocytes # (Auto) 0.8 x10^3/uL (1.0-4.8) L Monocytes # (Auto) 0.4 x10^3/uL (0.0-1.1) Eosinophils # (Auto) 0.4 x10^3/uL (0.0-0.7) Basophils # (Auto) 0.0 x10^3/uL (0.0-0.2) Sodium Level 138 mmol/L (136-145) Potassium Level 4.0 mmol/L (3.5-5.1) Chloride Level 100 mmol/L (98-107) Carbon Dioxide Level 31 mmol/L (21-32) Anion Gap 7 (6-14) Blood Urea Nitrogen 18 mg/dL (8-26) Creatinine 1.0 mg/dL (0.7-1.3) Estimated GFR (Cockcroft-Gault) 78.2 BUN/Creatinine Ratio 18 (6-20) Glucose Level 120 mg/dL (70-99) H Calcium Level 9.2 mg/dL (8.5-10.1) Magnesium Level 1.9 mg/dL (1.8-2.4) Total Bilirubin 0.3 mg/dL (0.2-1.0) Aspartate Amino Transferase (AST) 28 U/L (15-37) Alanine Aminotransferase (ALT) 61 U/L (16-63) Alkaline Phosphatase 90 U/L (46-116) Troponin I Quantitative < 0.017 ng/mL (0.000-0.055) LH-Xvg-Z-Type Natriuretic Peptide 386 pg/mL (0-124) H Total Protein 7.0 g/dL (6.4-8.2) Albumin 3.2 g/dL (3.4-5.0) L Albumin/Globulin Ratio 0.8 (1.0-1.7) L Lipase 162 U/L (73-393) Laboratory Tests 02/06/21 11:55 Laboratory Tests 02/06/21 11:55 Vital Signs: Vital Signs Date Time Temp Pulse Resp B/P (MAP) Pulse Ox O2 Delivery O2 Flow Rate FiO2 02/06/21 12:51 128 110/53 02/06/21 11:10 98.3 20 93 Room Air 98.3 EKG: EKG: EKG was done at 1116, heart rate of 123 bpm, no STEMI. Radiology/Procedures: Radiology/Procedures: [][facility] [address] [place] [address] IMAGING REPORT Signed PATIENT: DEVON CHAVARRIA ACCOUNT: [id number] : 1965 LOCATION: ER AGE: 55 SEX: M EXAM STATUS: PRE ER ORD. PHYSICIAN: DWAINE VILLALOBOS DO REASON: SOA, CHEST PAIN PROCEDURE: PORTABLE CHEST 1V AP chest. HISTORY: Short of air, chest pain AP view was taken of the chest. Heart is upper normal in size. There is no pneumothorax or pleural effusion. There are no confluent infiltrates. There is scarring along the left heart border unchanged from the old study. IMPRESSION: 1. No acute infiltrates. Electronically signed by: Darrell Bradford MD (02/06/2021 11:51 AM) [id number] DICTATED and SIGNED BY: DARRELL BRADFORD MD DATE: 02/06/21 [id number] Course & Med Decision Making: Course & Med Decision Making Pertinent Labs and Imaging studies reviewed. (See chart for details) Because Patient's blood pressure was low , he was given digoxin iv. His heart rate was still fast. Consulted cardiology,recommended IV FLUID AND IV LOPRESSOR, ADMITTED FOR OBSERVATION. Dragon Disclaimer: Dragon Disclaimer: This electronic medical record was generated, in whole or in part, using a voice recognition dictation system. Departure Departure Impression: Primary Impression: Atrial flutter with rapid ventricular response Disposition: ADMITTED INPATIENT Admitting Physician: RC (Dr. Turner) Condition: STABLE Referrals: LETICIA MACDONALD MD (PCP) DWAINE VILLALOBOS DO Feb 06, 2021 13:34
--- NOTE | 2021-02-06 15:42 | PDOC2 ---
MARGARITA RODRIGUEZ SENIOR SVP 02/06/21 1542: CARDIAC CONSULT DATE OF CONSULT Date of Consult DATE: 02/06/21 TIME: 15:24 REASON FOR CONSULT Reason for Consult: Tachycardia REFERRING PHYSICIAN Referring Physician: Steve SOURCE Source: Chart review, Patient HISTORY OF PRESENT ILLNESS HISTORY OF PRESENT ILLNESS This is a 55 yo male admitted for complains of palpitations snce 10 AM today. He has hx of AFIB and has been noted with tachycardia. No chest pain or SOA. Per review it appears to be atrial flutter with RVR possibly 2:1. He has been given digoxin. He takes flecainide and metoprolol at home but has not been taking ASA for several months. Reports that he has not been tested for CPAP but known for BENTON. He transferred cardiac care to Dr. Wilson in and could potentially have an ablation. No recent infection. He has been compliant with his flecainide and metoprolol. He is positive for orthpnea but no PND. No significant leg swelling. No nausea or vomiting. He has teeth problems and needs some teeth pulled out. No fever or chills or recent infection. He has had his moderna vaccine in December 2020. PAST MEDICAL HISTORY Cardiovascular: AFIB, HTN, Other (PSVT) Pulmonary: Asthma CENTRAL NERVOUS SYSTEM: Other (No pertinent history) GI: GERD Heme/Onc: Cancer (protate ) Psych: Anxiety (claustrophobia) Musculoskeletal: low back pain, Osteoarthritis Rheumatologic: Gout Renal/: Prostate Ca. (with radiation and brachytherapy) Endocrine: Diabetes (2), Hypothyroidism Dermatology: Eczema PAST SURGICAL HISTORY Past Surgical History thyroidectomy, cystoscopy, Left RTC repair FAMILY HISTORY Family History: Diabetes, Hypertension SOCIAL HISTORY Smoke: Quit (30 pk yr) ALCOHOL: none Drugs: Marijuana Lives: with Family CURRENT MEDICATIONS CURRENT MEDICATIONS Current Medications Medications (Trade) Dose Ordered Sig/Jessy Route PRN Reason Start Time Stop Time Status Last Admin Dose Admin Digoxin (Lanoxin) 500 mcg 1X ONCE IV 02/06/21 12:45 02/06/21 12:46 DC 02/06/21 12:51 ALLERGIES ALLERGIES: Coded Allergies: meperidine (Unverified Allergy, Severe, Shortness of Air, 10/12/14) ROS Review of System 14 point ROS evaluated with pertinent positives noted per HPI PHYSICAL EXAM General: Alert, Oriented X3, Cooperative, No acute distress HEENT: Atraumatic, Mucous membr. moist/pink Lungs: Clear to auscultation, Normal air movement Heart: Other (SVT; distant heart sounds) Abdomen: Soft, Other (morbidly obese) Extremities: No cyanosis, No edema Skin: No breakdown, No significant lesion Neuro: Normal speech, Sensation intact Psych/Mental Status: Mental status NL, Mood NL MUSCULOSKELETAL: Osteoarthritic changes both hands VITALS/I&O VITALS/I&O: Vital Signs Date Time Temp Pulse Resp B/P (MAP) Pulse Ox O2 Delivery O2 Flow Rate FiO2 02/06/21 12:51 128 110/53 02/06/21 11:10 98.3 20 93 Room Air 98.3 LABS Lab: Laboratory Tests Test 02/06/21 11:55 White Blood Count 6.6 x10^3/uL (4.0-11.0) Red Blood Count 4.53 x10^6/uL (4.30-5.70) Hemoglobin 13.2 g/dL (13.0-17.5) Hematocrit 39.2 % (39.0-53.0) Mean Corpuscular Volume 87 fL (79-100) Mean Corpuscular Hemoglobin 29 pg (25-35) Mean Corpuscular Hemoglobin Concent 34 g/dL (31-37) Red Cell Distribution Width 14.6 % (11.5-14.5) H Platelet Count 272 x10^3/uL (140-400) Neutrophils (%) (Auto) 75 % (31-73) H Lymphocytes (%) (Auto) 12 % (24-48) L Monocytes (%) (Auto) 6 % (0-9) Eosinophils (%) (Auto) 7 % (0-3) H Basophils (%) (Auto) 1 % (0-3) Neutrophils # (Auto) 5.0 x10^3/uL (1.8-7.7) Lymphocytes # (Auto) 0.8 x10^3/uL (1.0-4.8) L Monocytes # (Auto) 0.4 x10^3/uL (0.0-1.1) Eosinophils # (Auto) 0.4 x10^3/uL (0.0-0.7) Basophils # (Auto) 0.0 x10^3/uL (0.0-0.2) Sodium Level 138 mmol/L (136-145) Potassium Level 4.0 mmol/L (3.5-5.1) Chloride Level 100 mmol/L (98-107) Carbon Dioxide Level 31 mmol/L (21-32) Anion Gap 7 (6-14) Blood Urea Nitrogen 18 mg/dL (8-26) Creatinine 1.0 mg/dL (0.7-1.3) Estimated GFR (Cockcroft-Gault) 78.2 BUN/Creatinine Ratio 18 (6-20) Glucose Level 120 mg/dL (70-99) H Calcium Level 9.2 mg/dL (8.5-10.1) Magnesium Level 1.9 mg/dL (1.8-2.4) Total Bilirubin 0.3 mg/dL (0.2-1.0) Aspartate Amino Transferase (AST) 28 U/L (15-37) Alanine Aminotransferase (ALT) 61 U/L (16-63) Alkaline Phosphatase 90 U/L (46-116) Troponin I Quantitative < 0.017 ng/mL (0.000-0.055) VF-Phu-G-Type Natriuretic Peptide 386 pg/mL (0-124) H Total Protein 7.0 g/dL (6.4-8.2) Albumin 3.2 g/dL (3.4-5.0) L Albumin/Globulin Ratio 0.8 (1.0-1.7) L Lipase 162 U/L (73-393) Laboratory Tests 02/06/21 11:55 Laboratory Tests 02/06/21 11:55 ECHOCARDIOGRAM ECHOCARDIOGRAM <Conclusion> The left ventricular systolic function is normal and the ejection fraction is within normal range. EF 55% There is normal LV segmental wall motion. DATE: 01/11/20 1352 ASSESSMENT/PLAN ASSESSMENT/PLAN 1. Palpitations: due to atrial flutter 2. SVT: appears to be atrial flutter with RVR: paroxysmal by hx 3. Hx of BENTON: no CPAP use 4. Acquired hypothyroidism: on replacement therapy 5. Morbid obesity 6. DM2 7. HTN: controlled 8. HLP 9. Hx of asthma 10. Left thyroid nodule 11. Periodontal disease: per PCP Recommendations 1. Digoxin IV given in ED due to low end BP. Takes flecainide and metoprolol at home 2. Start IVF, discussed with primary radio interference investigator and will provide 1 dose of adenosine as he responded with this in the past and also start on IV lopressor. 3. Full dose ASA for now. 4. TTE tomorrow and will check TSH 5. Follow with EP on Feb [address] Mclaughlin at DILIP ALFORD MD 02/07/21 0809: CARDIAC CONSULT ASSESSMENT/PLAN ASSESSMENT/PLAN Late entry for 02/06/21 Pt. seen and examined. Agree with above SENIOR QUANTITY SURVEYOR note. I have discussed his case with EP service at , they will expedite his SVT evaluation. Monitor overnight and DC tomorrow at Flecainide 100mg p.o bid. Thanks. MARGARITA RODRIGUEZ APRN Feb 06, 2021 15:42 DILIP ALFORD MD Feb 07, 2021 08:09
[2021-02-06] MEDS ORDERED: IV NORMAL SALINE 1000ML BAG 1,000 ML IV ONE (16:00)
[2021-02-06] MEDS ORDERED: ADENOSINE 6 MG/2 ML VIAL. IV ONE (16:15)
[2021-02-06] MEDS ORDERED: METOPROLOL IV PUSH 5 MG/5 ML VIAL. IVP ONE (16:30)
[2021-02-06] MEDS ORDERED: ASPIRIN ENTERIC COATED 325 MG TABLET.DR. PO ONE (16:30)
--- NOTE | 2021-02-06 17:29 | EKG ---
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
[2021-02-06] MEDS ORDERED: METOPROLOL IV PUSH 5 MG/5 ML VIAL. IVP SCH (18:00)
[2021-02-06 19:00] VITALS: BP 141/80
[2021-02-06] MEDS ORDERED: [UNRECOGNIZED DRUG - OTHER] IH PRN (20:45)
[2021-02-06] MEDS ORDERED: FLUTICASONE PROPION IH PRN (20:45)
[2021-02-06] MEDS ORDERED: FUROSEMIDE 20 MG TABLET PO PRN (20:45)
[2021-02-06] MEDS ORDERED: ALBUTEROL SULFATE 2.5 MG/3 ML NEBU. NEB PRN ×2 (20:45→21:15)
[2021-02-06] MEDS ORDERED: NON FORMULARY ITEM (Albuterol Sulfate (Albuterol Sulfate Conc Neb Soln) 2.5 MG) NEB PRN (20:45)
[2021-02-06] MEDS ORDERED: SALMETEROL IH PRN (20:45)
[2021-02-06] MEDS: METOPROLOL TART IMMED RELEASE 50 MG TABLET. PO SCH (21:00)
[2021-02-06] MEDS ORDERED: NON FORMULARY ITEM (Albuterol Sulfate (Proventil Hfa Inhaler) 2 PUFF) IH SCH (21:00)
[2021-02-06] MEDS: metFORMIN 850 MG TABLET PO SCH (21:00)
[2021-02-06] MEDS ORDERED: SIMVASTATIN 20 MG TABLET PO SCH (21:00)
[2021-02-06] MEDS: FLECAINIDE ACETATE 50 MG TABLET. PO SCH (21:10)
[2021-02-06 22:52] VITALS: BP 145/92
[2021-02-07 02:58] VITALS: BP 117/73
[2021-02-07] MEDS ORDERED: LEVOTHYROXINE 100 MCG TABLET PO SCH (06:00)
[2021-02-07 07:00] VITALS: BP 113/81
[2021-02-07] MEDS: ALBUTEROL SULFATE 2.5 MG/3 ML NEBU. NEB SCH ×2 (07:21→11:35)
[2021-02-07] MEDS ORDERED: PANTOPRAZOLE 40 MG TABLET.DR. PO SCH (07:30)
[2021-02-07] MEDS ORDERED: ASPIRIN ENTERIC COATED 325 MG TABLET.DR. PO SCH (08:00)
[2021-02-07] MEDS ORDERED: BUDESONIDE 0.5 MG/2 ML NEBU. NEB SCH (08:00)
[2021-02-07] MEDS: FLECAINIDE ACETATE 50 MG TABLET. PO SCH (08:28)
[2021-02-07] MEDS: METOPROLOL TART IMMED RELEASE 50 MG TABLET. PO SCH (08:29)
[2021-02-07] MEDS: metFORMIN 850 MG TABLET PO SCH (08:30)
[2021-02-07] MEDS ORDERED: CALCIUM CARB/VIT D3 500/200 TABLET. PO SCH (09:00)
[2021-02-07] MEDS ORDERED: TAMSULOSIN 0.4 MG CAP.ER.24H. PO SCH (09:00)
[2021-02-07] MEDS ORDERED: ASPIRIN CHEWABLE 81 MG TABLET. PO SCH (09:00)
[2021-02-07] MEDS ORDERED: CYANOCOBALAMIN (VITAMIN B-12) 1,000 MCG TABLET. PO SCH (09:00)
[2021-02-07] MEDS ORDERED: LISINOPRIL 10 MG TABLET PO SCH (09:00)
[2021-02-07] MEDS ORDERED: ASCORBIC ACID 1,000 MG TABLET PO SCH (09:00)
[2021-02-07] MEDS ORDERED: MELOXICAM 7.5 MG TABLET PO SCH (09:00)
[2021-02-07] MEDS ORDERED: COLCHICINE 0.6 MG TABLET PO SCH (09:00)
--- NOTE | 2021-02-07 09:11 | HP ---
ADMIT DATE: 02/07/2021 CHIEF COMPLAINT: Palpitations. HISTORY OF PRESENT ILLNESS: The patient is a pleasant 55-year-old male who presented with palpitations. It has been occurring since 10:00 a.m. yesterday. He has a noted history of arrhythmias. He is on flecainide and metoprolol. He has a history of AFib and once he got to the ER, where he was noted to be in SVT. I discussed the case with ER physician. The patient is now admitted to the telemetry floor. We are consulting Cardiology. PAST MEDICAL HISTORY: AFib, arrhythmias, BENTON, overweight. He uses a CPAP at home. Hypertension, asthma, GERD, claustrophobia, chronic back pain, osteoarthritis, gout, prostate cancer, radiation therapy, brachytherapy, diabetes, hypothyroidism, eczema. ALLERGIES: MEPERIDINE. FAMILY HISTORY: Diabetes. SOCIAL HISTORY: Does not drink, smoke or take drugs. He is on disability. MEDICATIONS: Reviewed, please refer to the MRAD. REVIEW OF SYSTEMS: GENERAL: No history of weight change, weakness or fevers. SKIN: No bruising, hair changes or rashes. EYES: No blurred, double or loss of vision. NOSE AND THROAT: No history of nosebleeds, hoarseness or sore throat. HEART: No history of palpitations, chest pain or shortness of breath on exertion. LUNGS: Denies cough, hemoptysis, wheezing or shortness of breath. GASTROINTESTINAL: Denies changes in appetite, nausea, vomiting, diarrhea or constipation. GENITOURINARY: No history of frequency, urgency, hesitancy or nocturia. NEUROLOGIC: Denies history of numbness, tingling, tremor or weakness. PSYCHIATRIC: No history of panic, anxiety or depression. ENDOCRINE: No history of heat or cold intolerance, polyuria or polydipsia. EXTREMITIES: Denies muscle weakness, joint pain, pain on walking or stiffness. PHYSICAL EXAMINATION: VITALS: Within normal limits and are stable. GENERAL: No apparent distress. Alert and oriented. HENT: Normal cephalic atraumatic, external auditory canals are patent. EYES: Extraocular muscles are intact, pupils are equally round and reactive to light and accommodation. MUSCULOSKELETAL: Well developed, well nourished, good range of motion. ENDOCRINE: No thyromegaly was palpated. LYMPHATICS: No cervical chain or axillary nodes were noted. HEMATOPOIETIC: No bruising. NECK: Supple, no JVD, no thyromegaly was noted. LUNGS: Clear to auscultation in all lung whittaker without rhonchi or wheezing. HEART: RRR, S1, S2 present. Peripheral pulses intact, no obvious murmurs were noted. ABDOMEN: Soft, nontender. Positive bowel sounds no organomegaly, normal bowel sounds. EXTREMITIES: Without any cyanosis, clubbing, or edema. Pedal pulses intact, Homans sign is negative. NEUROLOGIC: Normal speech, normal tone. A and O x 3, moves all extremities, no obvious focal deficits. PSYCHIATRIC: Normal affect, normal mood. Stable. SKIN: No ulcerations or rashes, good skin turgor, no jaundice. VASCULAR: Good capillary refill, neurovascular bundle appears to be intact. LABORATORY DATA: Hematology is normal. Electrolytes normal. Troponin is 0. BNP a little high at 386. Chest x-ray, no acute changes. ASSESSMENT AND PLAN: Arrhythmias. The patient has been admitted. We are checking serial enzymes, serial EKGs, consulting Cardiology, cardiac monitoring, home meds. DVT prophylaxis. Full code. [facility] [place] DR: Reji TID: [id number]
--- NOTE | 2021-02-07 09:30 | EKG ---
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
--- NOTE | 2021-02-07 10:00 | PDOC ---
MARGARITA RODRIGUEZ BIBLE TEACHER 02/07/21 1000: CARDIO Progress Notes Date and Time Date of Service 02/07/2021 Time of Evaluation 0930 Subjective Subjective: No Chest Pain, No shortness of breath, No Palpitations Vitals Vitals Vital Signs Date Time Temp Pulse Resp B/P (MAP) Pulse Ox O2 Delivery O2 Flow Rate FiO2 02/07/21 08:31 85 113/81 02/07/21 07:23 96 Nasal Cannula 2.0 02/07/21 07:00 97.4 18 97.4 Weight Weight [ ] Input and Output Intake and Output Intake and Output 02/07/21 07:00 Intake Total 640 ml Balance 640 ml Intake Oral 640 ml # Voids 1 Laboratory Labs Laboratory Tests Test 02/06/21 11:55 02/06/21 14:25 02/06/21 18:00 White Blood Count 6.6 x10^3/uL (4.0-11.0) Red Blood Count 4.53 x10^6/uL (4.30-5.70) Hemoglobin 13.2 g/dL (13.0-17.5) Hematocrit 39.2 % (39.0-53.0) Mean Corpuscular Volume 87 fL (79-100) Mean Corpuscular Hemoglobin 29 pg (25-35) Mean Corpuscular Hemoglobin Concent 34 g/dL (31-37) Red Cell Distribution Width 14.6 % (11.5-14.5) Platelet Count 272 x10^3/uL (140-400) Neutrophils (%) (Auto) 75 % (31-73) Lymphocytes (%) (Auto) 12 % (24-48) Monocytes (%) (Auto) 6 % (0-9) Eosinophils (%) (Auto) 7 % (0-3) Basophils (%) (Auto) 1 % (0-3) Neutrophils # (Auto) 5.0 x10^3/uL (1.8-7.7) Lymphocytes # (Auto) 0.8 x10^3/uL (1.0-4.8) Monocytes # (Auto) 0.4 x10^3/uL (0.0-1.1) Eosinophils # (Auto) 0.4 x10^3/uL (0.0-0.7) Basophils # (Auto) 0.0 x10^3/uL (0.0-0.2) Sodium Level 138 mmol/L (136-145) Potassium Level 4.0 mmol/L (3.5-5.1) Chloride Level 100 mmol/L (98-107) Carbon Dioxide Level 31 mmol/L (21-32) Anion Gap 7 (6-14) Blood Urea Nitrogen 18 mg/dL (8-26) Creatinine 1.0 mg/dL (0.7-1.3) Estimated GFR (Cockcroft-Gault) 78.2 BUN/Creatinine Ratio 18 (6-20) Glucose Level 120 mg/dL (70-99) Calcium Level 9.2 mg/dL (8.5-10.1) Magnesium Level 1.9 mg/dL (1.8-2.4) Total Bilirubin 0.3 mg/dL (0.2-1.0) Aspartate Amino Transf (AST/SGOT) 28 U/L (15-37) Alanine Aminotransferase (ALT/SGPT) 61 U/L (16-63) Alkaline Phosphatase 90 U/L (46-116) Troponin I Quantitative < 0.017 ng/mL (0.000-0.055) < 0.017 ng/mL (0.000-0.055) < 0.017 ng/mL (0.000-0.055) CW-Stl-O-Type Natriuretic Peptide 386 pg/mL (0-124) Total Protein 7.0 g/dL (6.4-8.2) Albumin 3.2 g/dL (3.4-5.0) Albumin/Globulin Ratio 0.8 (1.0-1.7) Lipase 162 U/L (73-393) Thyroid Stimulating Hormone (TSH) 3.569 uIU/mL (0.358-3.74) Physical Exam HEENT: Neck Supple W Full Motion Chest: Symmetric LUNGS: Clear to Auscultation Heart: S1S2, RRR (SR) Abdomen: Soft N/T, Other (obese) Extremities: No Calf Tenderness Neurology: alert, oriented, follow commands Assessment Assessment 1. Palpitations: due to atrial flutter 2. SVT: appears to be atrial flutter with RVR: maintaining SR 3. Hx of BENTON: no CPAP use 4. Acquired hypothyroidism: on replacement therapy 5. Morbid obesity 6. DM2 7. HTN: controlled 8. HLP 9. Hx of asthma 10. Left thyroid nodule 11. Periodontal disease: per PCP Recommendations 1. Continue home metoprolol and flecainide. Secondary prevention measures 2. TTE today 3. Full dose ASA 4. Follow with EP on Feb [address] Mclaughlin at . consider for ablation Justicifation of Admission Dx: Justifications for Admission: Justification of Admission Dx: N/A DILIP ALFORD MD 02/07/21 1613: CARDIO Progress Notes Plan Plan The patient was seen and interviewed as well as examined at the bedside. The chart was reviewed. The case was discussed. Agree with the plan of care. MARGARITA RODRIGUEZ APRN Feb 07, 2021 10:00 DILIP ALFORD MD Feb 07, 2021 16:13
[2021-02-07 11:00] VITALS: BP 139/79
--- NOTE | 2021-02-07 11:27 | NUR ---
SS following for discharge planning. SS reviewed pt chart and discussed with pt RN. Pt is from home and is currently on room air. Cardiology consulted. ECHO ordered. Discharge plan is to home when medically ready for discharge. SS will continue to follow for discharge planning.
[2021-02-07] MEDS ORDERED: PERFLUTREN PROTEIN-A MICROSPHR 0.22 MG/ML 3 ML VIAL. IV ONE ×2 (12:03→12:15)
[2021-02-07] MEDS ORDERED: ASPI325T8 PO (12:46)
--- NOTE | 2021-02-07 13:15 | DS ---
DATE OF DISCHARGE: 01/08/2021 ADMISSION DIAGNOSIS: Supraventricular tachycardia. DISCHARGE DIAGNOSIS: Resolving supraventricular tachycardia. HOSPITAL COURSE: The patient is a pleasant middle-aged male who presented with SVT. We consulted Cardiology. We monitored his heart, did serial enzymes, serial EKGs. His workup was negative. We plan to discharge. 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 DISPOSITION: Home. ACTIVITY: As tolerated. DIET: Cardiac. MEDICATIONS: We will continue his home metoprolol and home flecainide. TOTAL TIME: [address]: Reji TID: [id number]
--- NOTE | 2021-02-07 14:10 | NUR ---
Discharge Note: DEVON CHAVARRIA Discharge instructions and discharge home medications reviewed with Patient and a copy given. All questions have been answered and understanding verbalized. Patient has follow up with Dr. Wilson at . No complaints of pain, regular rate and rhythm upon discharge. The following instructions and handouts were given: Atrial Flutter Discontinued lines and drains: Peripheral IV intact. Patient discharged to Home or Self Care with Self via Wheelchair
--- NOTE | 2021-02-07 15:41 | CARD ---
MR#: [id number] Date of Study: 02/07/2021 Ordering Physician: MARGARITA RODRIGUEZ, Referring Physician: MARGARITA RODRIGUEZ, Tech: Ghazala Mena, [facility] APPROVED REPORT EXAM: Two-dimensional and M-mode echocardiogram with Doppler and color Doppler. Other Information Quality : PoorHR: 92bpm INDICATION Superventricular tachycardia RISK FACTORS Hyperlipidemia Diabetes Asthma 2D DIMENSIONS RVDd3.9 (2.9-3.5cm)Left Atrium(2D)5.1 (1.6-4.0cm) IVSd1.4 (0.7-1.1cm)Aortic Root(2D)4.1 (2.0-3.7cm) LVDd6.8 (3.9-5.9cm)LVOT Diameter2.3 (1.8-2.4cm) PWd1.5 (0.7-1.1cm)LVDs5.2 (2.5-4.0cm) FS (%) 23.6 %SV109.1 ml LVEF(%)46.0 (>50%) Aortic Valve AoV Peak Mike.109.0cm/sAoV VTI21.1cm AO Peak GR.4.8mmHgLVOT Peak Mike.87.2cm/s LVOT VTI 19.61cmAO Mean GR.2mmHg FELIZ (VMAX)2.58wt9ITN (VTI)3.85cm2 Mitral Valve MV E Meirkyag44.3cm/sMV DECEL JYQU677ln MV A Vzvjlpki34.6cm/sMV E Mean Gr.2mmHg MV HLJ12qeR/A Ratio1.0 MVA (PHT)2.94cm2 TDI E/Lateral E'5.5E/Medial E'5.4 Pulmonary Valve PV Peak Ofwegsuz11.6cm/sPV Peak Grad.4mmHg Tricuspid Valve TR P. Qpxoygxc233hd/sTR Peak Gr.18mmHg LEFT VENTRICLE The left ventricle is normal size. There is mild to moderate concentric left ventricular hypertrophy. The left ventricular systolic function is normal. The Ejection Fraction is 55-60%. There is normal L V segmental wall motion. Transmitral Doppler flow pattern is Grade II-pseudonormal filling dynamics. RIGHT VENTRICLE The right ventricle is not well visualized. ATRIA The left atrium size is normal. The right atrium size is normal. AORTIC VALVE The aortic valve is normal in structure and function. Doppler and Color Flow revealed no significant aortic regurgitation. There is no significant aortic valvular stenosis. Calculated aortic valve area is 3.69 cm2 with maximum pressure gradient of 5 mmHg and mean pressure gradient of 3 mmHg. MITRAL VALVE The mitral valve is normal in structure and function. There is no evidence of mitral valve prolapse. There is no mitral valve stenosis. Doppler and Color Flow revealed no mitral valve regurgitation note d. TRICUSPID VALVE The tricuspid valve is not well visualized. Doppler and Color Flow revealed trace tricuspid regurgita tion with an estimated PAP of 22 mmHg. There is no tricuspid valve stenosis. PULMONIC VALVE The pulmonic valve is not well visualized. Doppler and Color Flow revealed trace pulmonic valvular re gurgitation. GREAT VESSELS The aortic root is mildly enlarged measuring 4.1 cm. The IVC was not visualized. PERICARDIAL EFFUSION There is no evidence of significant pericardial effusion. Critical Notification Critical Value: No <Conclusion> Technically difficult study. Optison echo contrast used. The left ventricular systolic function is normal. The Ejection Fraction is 55-60%. There is normal LV segmental wall motion. Transmitral Doppler flow pattern is Grade II-pseudonormal filling dynamics. Trace tricuspid regurgitation with an estimated PAP of 22 mmHg. The aortic root is mildly enlarged measuring 4.1 cm. There is no evidence of significant pericardial effusion. Signed by : Akhil Bryant, Electronically Approved : 02/07/2021 15:41:03
--- NOTE | 2021-02-21 11:13 | NUR ---
Late entry - NS infusion bolus started at 02/06/21 at 1555, stopped on 02/06/21 at 1655.
== END 2021-02-07 14:10 | disposition home or self-care (01) ==
LOC: ER 11:09 → 2 NORTH 16:28
PROVIDERS: ADMIT Internal Medicine; ATTEND Internal Medicine
DX: I47.1 Supraventricular tachycardia (principal); I48.92 Unspecified atrial flutter; R00.2 Palpitations; E04.1 Nontoxic single thyroid nodule; E11.9 Type 2 diabetes mellitus without complications; E66.01 Morbid (severe) obesity due to excess calories; E78.00 Pure hypercholesterolemia, unspecified; E78.5 Hyperlipidemia, unspecified; E89.0 Postprocedural hypothyroidism; F40.240 Claustrophobia; I10 Essential (primary) hypertension; I48.91 Unspecified atrial fibrillation; M54.9 Dorsalgia, unspecified; G89.29 Other chronic pain; M19.90 Unspecified osteoarthritis, unspecified site; J45.909 Unspecified asthma, uncomplicated; K05.6 Periodontal disease, unspecified; Z85.46 Personal history of malignant neoplasm of prostate; Z79.899 Other long term (current) drug therapy; Z79.01 Long term (current) use of anticoagulants
CPT/HCPCS: 36415; 71045; 80053; 83690; 83735; 83880; 84443; 84484; 85025; 93005; 94640; 94760; 96361; 96374; 96375; 99285; C8929; G0378; J0153; J1160; J7030; J7613; J7626; Q9956; G0379

== ENCOUNTER 2021-10-19 17:59 | Inpatient (IN) | payer OTHER, MEDICAID ==
[~2021-10-19] VITALS: Ht 172.7 cm; Wt 189.5 kg
[~2021-10-19 17:59] MED LIST changes: +ASPI325T8 PO
[2021-10-19 19:11] LABS: HEMATOCRIT 40.9 % (39.0-53.0); HEMOGLOBIN 13.5 g/dL (13.0-17.5); RED BLOOD COUNT 4.72 x10^6/uL (4.30-5.70); RED CELL DISTRIBUTION WIDTH 15.8 % (11.5-14.5); WHITE BLOOD COUNT 9.3 x10^3/uL (4.0-11.0)
[2021-10-19 19:37] LABS: CALCIUM 9.5 mg/dL (8.5-10.1); CREATININE 1.6 mg/dL (0.7-1.3); GFR 45.3; POTASSIUM 4.6 mmol/L (3.5-5.1)
--- NOTE | 2021-10-19 19:49 | RAD ---
Study: XR CHEST 1V Indication: Palpitations. Comparison: 02/06/2021 Findings: Unchanged cardiomediastinal silhouette which is at the upper limits of normal for size. Similar aerat ion pattern of the lungs. No confluent airspace infiltrate, pleural effusion or pneumothorax. Humeral head suture anchors on the left. Impression: No acute radiographic abnormality of the chest. No relevant change from the 02/06/2021 comparison. Electronically signed by: ORIANA HAMILTON MD (10/19/2021 7:47 PM) [facility] [place]
[2021-10-19] MEDS: dilTIAZem HCL 125 MG in IV DEXTROSE 5% 100ML 100 ML IV PRN (21:46)
[2021-10-19] MEDS ORDERED: ANTI-COAG MONITOR BY PHARMACY. MC PRN (22:00)
[2021-10-19] MEDS ORDERED: HEPARIN for IV BOLUS 10,000 UNIT/10 ML VIAL. IV PRN (22:00)
[2021-10-19 22:11] LABS: PROTHROMBIN TIME PATIENT 12.4 SEC (11.7-14.0)
--- NOTE | 2021-10-19 22:12 | PHYS DOC ---
Past Medical History Past Medical History: A-Fib, Anxiety, Cancer, Diabetes-Type II, High Cholesterol Additional Past Medical Histor: PROSTATE CA,A-FIB/RVR, SVT Past Surgical History: Tonsillectomy, Other Additional Past Surgical Histo: thyroidectomy, left shoulder Smoking Status: Former Smoker Alcohol Use: None Drug Use: None General Adult EDM: Chief Complaint: Palpitations HPI: HPI: Patient is a 56 year old [male who presents with palpitations. States that this is likely his atrial fibrillation. Has had multiple episodes similar in the past. Denies any chest pain currently but has palpitations. No shortness of breath. Is on metoprolol and flecainide at home. Has been admitted in the past for possible SVT not was atrial flutter. 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 Review of Systems: Review of Systems: Constitutional: Denies fever or chills. [] Eyes: Denies change in visual acuity. [] HENT: Denies nasal congestion or sore throat. [] Respiratory: Denies cough or shortness of breath. [] Cardiovascular: Denies chest pain or edema. [] GI: Denies abdominal pain, nausea, vomiting, bloody stools or diarrhea. [] : Denies dysuria. [] Musculoskeletal: Denies back pain or joint pain. [] Integument: Denies rash. [] Neurologic: Denies headache, focal weakness or sensory changes. [] Endocrine: Denies polyuria or polydipsia. [] Lymphatic: Denies swollen glands. [] Psychiatric: Denies depression or anxiety. [] Heart Score: C/O Chest Pain: No Risk Factors: Risk Factors: DM, Current or recent (<one month) smoker, HTN, HLP, family history of CAD, obesity. Risk Scores: Score 0 - 3: 2.5% MACE over next 6 weeks - Discharge Home Score 4 - 6: 20.3% MACE over next 6 weeks - Admit for Clinical Observation Score 7 - 10: 72.7% MACE over next 6 weeks - Early Invasive Strategies Current Medications: Current Medications Medications (Trade) Dose Ordered Sig/Jessy Start Time Stop Time Status Last Admin Dose Admin Diltiazem HCl (Cardizem Iv Push) 10 mg 1X ONCE 10/19/21 20:30 10/19/21 20:31 DC 10/19/21 20:30 10 MG Diltiazem HCl 125 mg/Dextrose 125 ml @ 5 mls/hr CONT PRN 10/19/21 21:30 10/19/21 21:46 5 MLS/HR Diltiazem HCl 125 mg/Sodium Chloride 125 ml @ 5 mls/hr CONT PRN 10/19/21 21:30 10/19/21 21:28 DC Heparin Sodium (Porcine) (Heparin Sodium) 4,000 unit PRN Q6HRS PRN 10/19/21 22:00 Heparin Sodium/ Dextrose 250 ml @ 10 mls/hr CONT PRN 10/19/21 22:00 Info (Anti-Coagulation Monitoring By Pharmacy) 1 each PRN DAILY PRN 10/19/21 22:00 Allergies: Allergies: Allergies Coded Allergies Type Severity Reaction Last Updated Verified meperidine Allergy Severe Shortness of Air 10/12/14 No Physical Exam: PE: Constitutional: Well developed, well nourished, no acute distress, non-toxic appearance. [] HENT: Normocephalic, atraumatic, bilateral external ears normal, oropharynx moist, no oral exudates, nose normal. [] Eyes: PERRLA, EOMI, conjunctiva normal, no discharge. [] Neck: Normal range of motion, no tenderness, supple, no stridor. [] Cardiovascular: Tachycardia [] Lungs & Thorax: Bilateral breath sounds clear to auscultation [] Abdomen: Bowel sounds normal, soft, no tenderness, no masses, no pulsatile masses. [] Skin: Warm, dry, no erythema, no rash. [] Back: No tenderness, no CVA tenderness. [] Extremities: No tenderness, no cyanosis, no clubbing, ROM intact, no edema. [] Neurologic: Alert and oriented X 3, normal motor function, normal sensory function, no focal deficits noted. [] Psychologic: Affect normal, judgement normal, mood normal. [] Current Patient Data: Labs: Laboratory Tests Test 10/19/21 19:01 White Blood Count 9.3 x10^3/uL (4.0-11.0) Red Blood Count 4.72 x10^6/uL (4.30-5.70) Hemoglobin 13.5 g/dL (13.0-17.5) Hematocrit 40.9 % (39.0-53.0) Mean Corpuscular Volume 87 fL (79-100) Mean Corpuscular Hemoglobin 29 pg (25-35) Mean Corpuscular Hemoglobin Concent 33 g/dL (31-37) Red Cell Distribution Width 15.8 % (11.5-14.5) H Platelet Count 326 x10^3/uL (140-400) Sodium Level 137 mmol/L (136-145) Potassium Level 4.6 mmol/L (3.5-5.1) Chloride Level 100 mmol/L (98-107) Carbon Dioxide Level 30 mmol/L (21-32) Anion Gap 7 (6-14) Blood Urea Nitrogen 27 mg/dL (8-26) H Creatinine 1.6 mg/dL (0.7-1.3) H Estimated GFR (Cockcroft-Gault) 45.3 Glucose Level 117 mg/dL (70-99) H Calcium Level 9.5 mg/dL (8.5-10.1) Troponin I High Sensitivity 9 ng/L (4-75) Laboratory Tests 10/19/21 19:01 Laboratory Tests 10/19/21 19:01 Vital Signs: Vital Signs Date Time Temp Pulse Resp B/P (MAP) Pulse Ox O2 Delivery O2 Flow Rate FiO2 10/19/21 20:30 133 108/54 10/19/21 20:28 22 94 Room Air 10/19/21 18:05 98.2 98.2 EKG: EKG: [] Radiology/Procedures: Radiology/Procedures: [] Course & Med Decision Making: Course & Med Decision Making Pertinent Labs and Imaging studies reviewed. (See chart for details) Patient presents with atrial fibrillation with a heart rate in the 130s. After being given 2 boluses of Cardizem it only went down for a few minutes after resuming its normal rate. Therefore he was placed on a Cardizem drip. Spoke with cardiology who suggested we begin anticoagulation with heparin per protocol. Patient will be admitted on a Cardizem drip. Dragon Disclaimer: Dragon Disclaimer: This electronic medical record was generated, in whole or in part, using a voice recognition dictation system. Critical Care Time Critical care time was 30 minutes exclusive of procedures. Departure Departure Impression: Primary Impression: Atrial fibrillation with RVR Disposition: ADMITTED INPATIENT Condition: STABLE Referrals: LETICIA MACDONALD MD (PCP) YOSHI VICKERS MD Oct 19, 2021 22:12
[2021-10-19] MEDS: HEPARIN 25,000UTS/250ML PREMIX 250 ML IV PRN (22:29)
[2021-10-19] MEDS ORDERED: HEPARIN for IV BOLUS 10,000 UNIT/10 ML VIAL. IV ONE (22:30)
[2021-10-19 23:30] VITALS: BP 102/55
[2021-10-20] VITALS (15 sets, daily range): BP systolic 91–116; BP diastolic 50–64
[2021-10-20 03:56] LABS: HEMATOCRIT 38.7 % (39.0-53.0); HEMOGLOBIN 12.5 g/dL (13.0-17.5); RED BLOOD COUNT 4.49 x10^6/uL (4.30-5.70); RED CELL DISTRIBUTION WIDTH 15.8 % (11.5-14.5); WHITE BLOOD COUNT 8.2 x10^3/uL (4.0-11.0)
[2021-10-20] MEDS: dilTIAZem HCL 125 MG in IV DEXTROSE 5% 100ML 100 ML IV PRN (05:10)
[2021-10-20] MEDS: HEPARIN 25,000UTS/250ML PREMIX 250 ML IV PRN (11:38)
[2021-10-20] MEDS ORDERED: FUROSEMIDE 20 MG TABLET PO PRN (11:45)
--- NOTE | 2021-10-20 11:57 | PDOC2 ---
CONSULT Date of Consult Date of Consult DATE: 10/20/21 TIME: 11:57 Reason for Consult Reason for Consult: Atrial fibrillation Referring Physician Referring Physician: Dr. Dukes Identification/Chief Complaint Chief Complaint Palpitations Source Source: Chart review, Patient History of Present Illness Reason for Visit: 70-year-old male with history of paroxysmal atrial flutter, usually followed by Dr. Wilson at [facility] presented with palpitations associated with mild chest discomfort. He was found to be in atrial fibrillation with RVR and started on Cardizem and heparin infusions with conversion of patient rhythm to sinus rhythm. He has been in sinus rhythm on telemetry and I could not trace the initial EKG that shows atrial fibrillation. 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 He denied any orthopnea/PND or syncope. He was admitted to [facility] 04/19/2021 when he was noted to be in atrial flutter. Past Medical History Cardiovascular: AFIB, HTN, Other Pulmonary: Asthma CENTRAL NERVOUS SYSTEM: Other GI: GERD Heme/Onc: Cancer Hepatobiliary: No pertinent hx, Cholelithiasis Psych: Anxiety Musculoskeletal: low back pain, Osteoarthritis Rheumatologic: Gout Infectious disease: No pertinent hx Renal/: Prostate Ca. Endocrine: Diabetes, Hypothyroidism Past Surgical History Past Surgical History: Arthroscopy, Cholecystectomy, Tonsillectomy, Other Family History Family History: Diabetes, Hypertension Social History ALCOHOL: none Drugs: Marijuana Lives: with Family Current Medications Current Medications Current Medications Diltiazem HCl (Cardizem Iv Push) 10 mg 1X ONCE IVP Last administered on 10/19/21at 19:43; Start 10/19/21 at 19:45; Stop 10/19/21 at 19:46; Status DC Diltiazem HCl (Cardizem Iv Push) 10 mg 1X ONCE IVP Last administered on 10/19/21at 20:30; Start 10/19/21 at 20:30; Stop 10/19/21 at 20:31; Status DC Diltiazem HCl 125 mg/Sodium Chloride 125 ml @ 5 mls/hr CONT PRN IV PER PROTOCOL; Start 10/19/21 at 21:30; Stop 10/19/21 at 21:28; Status DC Diltiazem HCl 125 mg/Dextrose 125 ml @ 5 mls/hr CONT PRN IV PER PROTOCOL Last administered on 10/20/21at 05:10; Start 10/19/21 at 21:30 Heparin Sodium (Porcine) (Heparin Sodium) 4,000 unit 1X ONCE IV Last administered on 10/19/21at 22:28; Start 10/19/21 at 22:30; Stop 10/19/21 at 22:31; Status DC Heparin Sodium/ Dextrose 250 ml @ 10 mls/hr CONT PRN IV PER PROTOCOL Last administered on 10/20/21at 11:38; Start 10/19/21 at 22:00 Heparin Sodium (Porcine) (Heparin Sodium) 4,000 unit PRN Q6HRS PRN IV FOR UFH LEVEL LESS THAN 0.2 Last administered on 10/20/21at 04:40; Start 10/19/21 at 22:00 Info (Anti-Coagulation Monitoring By Pharmacy) 1 each PRN DAILY PRN MC PER PROTOCOL Last administered on 10/20/21at 02:35; Start 10/19/21 at 22:00 Aspirin (Michele Aspirin) 325 mg DAILY PO ; Start 10/20/21 at 12:00 Colchicine (Colcrys) 0.6 mg DAILY PO ; Start 10/20/21 at 12:00 Furosemide (Lasix) 20 mg DAILY PRN PO swelling; Start 10/20/21 at 11:45 Levothyroxine Sodium (Synthroid) 100 mcg DAILY06 PO ; Start 10/21/21 at 06:00 Lisinopril (Prinivil) 10 mg DAILY PO ; Start 10/20/21 at 12:00 Meloxicam (Mobic) 7.5 mg DAILY PO ; Start 10/20/21 at 12:00 Metformin HCl (Glucophage) 850 mg BIDWMEALS PO ; Start 10/20/21 at 17:00 Metoprolol Tartrate (Lopressor) 50 mg BID PO ; Start 10/20/21 at 12:00 Simvastatin (Zocor) 20 mg HS PO ; Start 10/20/21 at 21:00 Tamsulosin HCl (Flomax) 0.4 mg DAILY PO ; Start 10/20/21 at 12:00 Flecainide Acetate (Tambocor) 100 mg Q12HR PO ; Start 10/20/21 at 12:00 Active Scripts Active Lisinopril 10 Mg Tablet 1 Tab PO DAILY 90 Days Reported Aspirin 325 Mg Tablet 1 Tab PO DAILY Fluticasone-Salmeterol 250-50 (Fluticasone Propion/Salmeterol) 1 Each Blst.w.dev 1 Each IH PRN Q12HR PRN Proair Hfa Inhaler (Albuterol Sulfate) 8.5 Gm Hfa.aer.ad 2 Puff IH PRN Q4-6HRS PRN 21 Days Omeprazole 20 Mg Capsule.dr 20 Mg PO DAILY B-12 (Cyanocobalamin (Vitamin B-12)) 500 Mcg Tablet 500 Mcg PO DAILY D3 + K2 Dots 1,000 Units Tab (Vitamin D3/Vitamin K2) 1 Each Tab.rapdis 1,000 Tab PO DAILY 30 Days Vitamin C (Ascorbic Acid) 500 Mg Capsule 1,000 Mg PO DAILY Albuterol Sulfate Conc Neb Soln (Albuterol Sulfate) 2.5 Mg/0.5 Ml Vial.neb 2.5 Mg NEB PRN Q8HRS PRN Flecainide Acetate 100 Mg Tablet 100 Mg PO BID Meloxicam 7.5 Mg Tablet 7.5 Mg PO DAILY Colchicine 0.6 Mg Tablet 0.6 Mg PO DAILY Euthyrox (Levothyroxine Sodium) 100 Mcg Tablet 100 Mcg PO DAILYAC Metoprolol Tartrate 50 Mg Tablet 50 Mg PO BID Metformin Hcl 850 Mg Tablet 850 Mg PO BID Flomax (Tamsulosin Hcl) 0.4 Mg Cap.er.24h 0.4 Mg PO DAILY Simvastatin 20 Mg Tablet 20 Mg PO HS Furosemide 20 Mg Tablet 20 Mg PO DAILY PRN take 1-2 tabs a day as needed for swelling Proventil Hfa Inhaler (Albuterol Sulfate) 6.7 Gm Hfa.aer.ad 2 Puff IH QID Allergies Allergies: Coded Allergies: meperidine (Unverified Allergy, Severe, Shortness of Air, 10/12/14) ROS PSYCHOLOGICAL ROS: No: Hallucinations Eyes: No Loss of vision HEENT: No: Epistaxis Respiratory: No: Hemoptysis, Shortness of breath Cardiovascular: yes Chest Pain, yes Palpitations Gastrointestinal: No Vomiting Genitourinary: No Hematuria Neurological: No Seizures Skin: No Rash Physical Exam General: Alert, Oriented X3 HEENT: Atraumatic Lungs: Clear to auscultation Heart: Regular rate Abdomen: Soft Extremities: No edema Psych/Mental Status: Mood NL Vitals VITALS Vital Signs Date Time Temp Pulse Resp B/P (MAP) Pulse Ox O2 Delivery O2 Flow Rate FiO2 10/20/21 10:50 97.6 69 20 114/57 (76) 95 Room Air 97.6 Labs Labs Laboratory Tests Test 10/19/21 19:01 10/19/21 23:41 10/20/21 03:45 10/20/21 08:00 White Blood Count 9.3 x10^3/uL (4.0-11.0) 8.2 x10^3/uL (4.0-11.0) Red Blood Count 4.72 x10^6/uL (4.30-5.70) 4.49 x10^6/uL (4.30-5.70) Hemoglobin 13.5 g/dL (13.0-17.5) 12.5 g/dL (13.0-17.5) Hematocrit 40.9 % (39.0-53.0) 38.7 % (39.0-53.0) Mean Corpuscular Volume 87 fL (79-100) 86 fL (79-100) Mean Corpuscular Hemoglobin 29 pg (25-35) 28 pg (25-35) Mean Corpuscular Hemoglobin Concent 33 g/dL (31-37) 32 g/dL (31-37) Red Cell Distribution Width 15.8 % (11.5-14.5) 15.8 % (11.5-14.5) Platelet Count 326 x10^3/uL (140-400) 297 x10^3/uL (140-400) Prothrombin Time 12.4 SEC (11.7-14.0) Prothromb Time International Ratio 1.0 (0.8-1.1) Activated Partial Thromboplast Time 29 SEC (24-38) Sodium Level 137 mmol/L (136-145) Potassium Level 4.6 mmol/L (3.5-5.1) Chloride Level 100 mmol/L (98-107) Carbon Dioxide Level 30 mmol/L (21-32) Anion Gap 7 (6-14) Blood Urea Nitrogen 27 mg/dL (8-26) Creatinine 1.6 mg/dL (0.7-1.3) Estimated GFR (Cockcroft-Gault) 45.3 Glucose Level 117 mg/dL (70-99) Calcium Level 9.5 mg/dL (8.5-10.1) Troponin I High Sensitivity 9 ng/L (4-75) Glucose (Fingerstick) 134 mg/dL (70-99) 118 mg/dL (70-99) Heparin Anti-Xa Act, Unfractionated < 0.10 IU/mL (0.30-0.70) Test 10/20/21 09:25 10/20/21 11:43 Heparin Anti-Xa Act, Unfractionated 0.33 IU/mL (0.30-0.70) Glucose (Fingerstick) 114 mg/dL (70-99) Laboratory Tests Test 10/19/21 19:01 10/19/21 23:41 10/20/21 03:45 10/20/21 08:00 White Blood Count 9.3 x10^3/uL (4.0-11.0) 8.2 x10^3/uL (4.0-11.0) Red Blood Count 4.72 x10^6/uL (4.30-5.70) 4.49 x10^6/uL (4.30-5.70) Hemoglobin 13.5 g/dL (13.0-17.5) 12.5 g/dL (13.0-17.5) Hematocrit 40.9 % (39.0-53.0) 38.7 % (39.0-53.0) Mean Corpuscular Volume 87 fL (79-100) 86 fL (79-100) Mean Corpuscular Hemoglobin 29 pg (25-35) 28 pg (25-35) Mean Corpuscular Hemoglobin Concent 33 g/dL (31-37) 32 g/dL (31-37) Red Cell Distribution Width 15.8 % (11.5-14.5) 15.8 % (11.5-14.5) Platelet Count 326 x10^3/uL (140-400) 297 x10^3/uL (140-400) Prothrombin Time 12.4 SEC (11.7-14.0) Prothromb Time International Ratio 1.0 (0.8-1.1) Activated Partial Thromboplast Time 29 SEC (24-38) Sodium Level 137 mmol/L (136-145) Potassium Level 4.6 mmol/L (3.5-5.1) Chloride Level 100 mmol/L (98-107) Carbon Dioxide Level 30 mmol/L (21-32) Anion Gap 7 (6-14) Blood Urea Nitrogen 27 mg/dL (8-26) Creatinine 1.6 mg/dL (0.7-1.3) Estimated GFR (Cockcroft-Gault) 45.3 Glucose Level 117 mg/dL (70-99) Calcium Level 9.5 mg/dL (8.5-10.1) Troponin I High Sensitivity 9 ng/L (4-75) Glucose (Fingerstick) 134 mg/dL (70-99) 118 mg/dL (70-99) Heparin Anti-Xa Act, Unfractionated < 0.10 IU/mL (0.30-0.70) Test 10/20/21 09:25 10/20/21 11:43 Heparin Anti-Xa Act, Unfractionated 0.33 IU/mL (0.30-0.70) Glucose (Fingerstick) 114 mg/dL (70-99) Assessment/Plan Assessment/Plan 1. Paroxysmal atrial fibrillation/flutter, presently back in sinus rhythm. Stop Cardizem and heparin infusions. Continue metoprolol. Since his chads Vascor is low, he has been treated with aspirin for stroke prophylaxis and flecainide for antiarrhythmic therapy. Follow-up with primary metal cut off saw operator for loop recorder implantation to guide antiarrhythmic therapy. 2D echo in 01/2021 showed LVEF 55 to 60%. 2. Hypertension: Controlled 3. Hyperlipidemia: Continue statin therapy 4. Hypothyroidism: Continue levothyroxine 5. Diabetes mellitus type 2: Treat per IM Thank you for your consultation SALOME CHICAS MD Oct 20, 2021 11:57
[2021-10-20] MEDS ORDERED: TAMSULOSIN 0.4 MG CAP.ER.24H. PO SCH (12:00)
[2021-10-20] MEDS ORDERED: COLCHICINE 0.6 MG TABLET PO SCH (12:00)
[2021-10-20] MEDS ORDERED: FLECAINIDE ACETATE 50 MG TABLET. PO SCH (12:00)
[2021-10-20] MEDS ORDERED: ASPIRIN 325 MG TABLET PO SCH (12:00)
[2021-10-20] MEDS ORDERED: LISINOPRIL 10 MG TABLET PO SCH (12:00)
[2021-10-20] MEDS ORDERED: METOPROLOL TART IMMED RELEASE 50 MG TABLET. PO SCH (12:00)
[2021-10-20] MEDS ORDERED: MELOXICAM 7.5 MG TABLET PO SCH (12:00)
[2021-10-20 12:05] LABS: CALCIUM 8.9 mg/dL (8.5-10.1); CREATININE 1.3 mg/dL (0.7-1.3); GFR 57.5; POTASSIUM 4.2 mmol/L (3.5-5.1)
--- NOTE | 2021-10-20 12:05 | PDOC1 ---
History and Physical Date of Admission Date of Admission DATE: 10/20/21 TIME: 12:05 Source Source: Chart review, Patient History of Present Illness History of Present Illness Patient is a 56 year old [male who presents with palpitations. States that this is likely his atrial fibrillation. Has had multiple episodes similar in the past. Denies any chest pain currently but has palpitations. No shortness of breath. Is on metoprolol and flecainide at home. Has been admitted in the past for possible SVT not was atrial flutter. 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 Past Medical History Cardiovascular: AFIB, HTN, Other Pulmonary: Asthma CENTRAL NERVOUS SYSTEM: Other GI: GERD Heme/Onc: Cancer Hepatobiliary: No pertinent hx, Cholelithiasis Psych: Anxiety Musculoskeletal: low back pain, Osteoarthritis Rheumatologic: Gout Infectious disease: No pertinent hx Renal/: Prostate Ca. Endocrine: Diabetes, Hypothyroidism Past Surgical History Past Surgical History: Arthroscopy, Cholecystectomy, Tonsillectomy, Other Family History Family History: Diabetes, Hypertension Social History ALCOHOL: none Drugs: Marijuana Current Medications Current Medications Current Medications Diltiazem HCl (Cardizem Iv Push) 10 mg 1X ONCE IVP Last administered on 10/19/21at 19:43; Start 10/19/21 at 19:45; Stop 10/19/21 at 19:46; Status DC Diltiazem HCl (Cardizem Iv Push) 10 mg 1X ONCE IVP Last administered on 10/19/21at 20:30; Start 10/19/21 at 20:30; Stop 10/19/21 at 20:31; Status DC Diltiazem HCl 125 mg/Sodium Chloride 125 ml @ 5 mls/hr CONT PRN IV PER PROTOCO L; Start 10/19/21 at 21:30; Stop 10/19/21 at 21:28; Status DC Diltiazem HCl 125 mg/Dextrose 125 ml @ 5 mls/hr CONT PRN IV PER PROTOCOL Last administered on 10/20/21at 05:10; Start 10/19/21 at 21:30 Heparin Sodium (Porcine) (Heparin Sodium) 4,000 unit 1X ONCE IV Last administered on 10/19/21at 22:28; Start 10/19/21 at 22:30; Stop 10/19/21 at 22:31; Status DC Heparin Sodium/ Dextrose 250 ml @ 10 mls/hr CONT PRN IV PER PROTOCOL Last administered on 10/20/21at 11:38; Start 10/19/21 at 22:00 Heparin Sodium (Porcine) (Heparin Sodium) 4,000 unit PRN Q6HRS PRN IV FOR UFH LEVEL LESS THAN 0.2 Last administered on 10/20/21at 04:40; Start 10/19/21 at 22:00 Info (Anti-Coagulation Monitoring By Pharmacy) 1 each PRN DAILY PRN MC PER PROTOCOL Last administered on 10/20/21at 02:35; Start 10/19/21 at 22:00 Aspirin (Michele Aspirin) 325 mg DAILY PO ; Start 10/21/21 at 09:00; Status UNV Colchicine (Colcrys) 0.6 mg DAILY PO ; Start 10/21/21 at 09:00; Status UNV Furosemide (Lasix) 20 mg DAILY PRN PO swelling; Start 10/20/21 at 11:45; Status UNV Levothyroxine Sodium (Synthroid) 100 mcg DAILYAC PO ; Start 10/21/21 at 07:30; Status UNV Active Scripts Active Lisinopril 10 Mg Tablet 1 Tab PO DAILY 90 Days Reported Aspirin 325 Mg Tablet 1 Tab PO DAILY Fluticasone-Salmeterol 250-50 (Fluticasone Propion/Salmeterol) 1 Each Blst.w.dev 1 Each IH PRN Q12HR PRN Proair Hfa Inhaler (Albuterol Sulfate) 8.5 Gm Hfa.aer.ad 2 Puff IH PRN Q4-6HRS PRN 21 Days Omeprazole 20 Mg Capsule.dr 20 Mg PO DAILY B-12 (Cyanocobalamin (Vitamin B-12)) 500 Mcg Tablet 500 Mcg PO DAILY D3 + K2 Dots 1,000 Units Tab (Vitamin D3/Vitamin K2) 1 Each Tab.rapdis 1,000 Tab PO DAILY 30 Days Vitamin C (Ascorbic Acid) 500 Mg Capsule 1,000 Mg PO DAILY Albuterol Sulfate Conc Neb Soln (Albuterol Sulfate) 2.5 Mg/0.5 Ml Vial.neb 2.5 Mg NEB PRN Q8HRS PRN Flecainide Acetate 100 Mg Tablet 100 Mg PO BID Meloxicam 7.5 Mg Tablet 7.5 Mg PO DAILY Colchicine 0.6 Mg Tablet 0.6 Mg PO DAILY Euthyrox (Levothyroxine Sodium) 100 Mcg Tablet 100 Mcg PO DAILYAC Metoprolol Tartrate 50 Mg Tablet 50 Mg PO BID Metformin Hcl 850 Mg Tablet 850 Mg PO BID Flomax (Tamsulosin Hcl) 0.4 Mg Cap.er.24h 0.4 Mg PO DAILY Simvastatin 20 Mg Tablet 20 Mg PO HS Furosemide 20 Mg Tablet 20 Mg PO DAILY PRN take 1-2 tabs a day as needed for swelling Proventil Hfa Inhaler (Albuterol Sulfate) 6.7 Gm Hfa.aer.ad 2 Puff IH QID Allergies Allergies: Coded Allergies: meperidine (Unverified Allergy, Severe, Shortness of Air, 10/12/14) ROS General: No: Chills, Night Sweats, Fatigue, Malaise, Appetite, Other PSYCHOLOGICAL ROS: No: Anxiety, Behavioral Disorder, Concentration difficultie, Decreased libido, Depression, Disorientation, Hallucinations, Hostility, Irritablity, Memory difficulties, Mood Swings, Obsessive thoughts, Physical abuse, Sexual abuse, Sleep disturbances, Suicidal ideation, Other Eyes: No Blurry vision, No Decreased vision, No Double vision, No Dry eyes, No Excessive tearing, No Eye Pain, No Itchy Eyes, No Loss of vision, No Photophobia, No Scotomata, No Uses contacts, No Uses glasses, No Other HEENT: No: Heacaches, Visual Changes, Hearing change, Nasal congestion, Nasal discharge, Oral lesions, Sinus pain, Sore Throat, Epistaxis, Sneezing, Snoring, Tinnitus, Vertigo, Vocal changes, Other ENDOCRINE: No: Breast Changes, Galactorrhea, Hair Pattern Changes, Hot Flashes, Malaise/lethargy, Mood Swings, Palpitations, Polydipsia/polyuria, Skin Changes, Temperature Intolerance, Unexpected Weight Changes, Other Respiratory: No: Cough, Hemoptysis, Orthopnea, Pleuritic Pain, Shortness of breath, SOB with excertion, Sputum Changes, Stridor, Tachypnea, Wheezing, Other Cardiovascular: No Chest Pain, No Palpitations, No Orthopnea, No Paroxysmal Noc. Dyspnea, No Edema, No Lt Headedness, No Other Gastrointestinal: No Nausea, No Vomiting, No Abdominal Pain, No Diarrhea, No Constipation, No Melena, No Hematochezia, No Other Genitourinary: No Dysuria, No Frequency, No Incontinence, No Hematuria, No Retention, No Discharge, No Urgency, No Pain, No Flank Pain, No Other, No , No , No , No , No , No , No Musculoskeletal: No Gait Disturbance, No Joint Pain, No Joint Stiffness, No Joint Swelling, No Muscle Pain, No Muscular Weakness, No Pain In:, No Swelling In:, No Other Neurological: No Behavorial Changes, No Bowel/Bladder ControlChng, No Confusion, No Dizziness, No Gait Disturbance, No Headaches, No Impaired Coord/balance, No Memory Loss, No Numbness/Tingling, No Seizures, No Speech Problems, No Tremors, No Visual Changes, No Weakness, No Other Skin: No Dry Skin, No Eczema, No Hair Changes, No Lumps, No Mole Changes, No Mottling, No Nail Changes, No Pruritus, No Rash, No Skin Lesion Changes, No Other, No Acne Physical Exam General: Alert, Cooperative HEENT: Atraumatic Lungs: Clear to auscultation Heart: no murmurs, irregularly irregular Extremities: No cyanosis, Normal pulses, Other (1+ edema) Skin: No rashes Neuro: Normal gait, Strength at 5/5 X4 ext, Normal tone Psych/Mental Status: Mood NL Vitals Vitals Vital Signs Date Time Temp Pulse Resp B/P (MAP) Pulse Ox O2 Delivery O2 Flow Rate FiO2 10/20/21 10:50 97.6 69 20 114/57 (76) 95 Room Air 97.6 Labs Labs Laboratory Tests Test 10/19/21 19:01 10/19/21 23:41 10/20/21 03:45 10/20/21 08:00 White Blood Count 9.3 x10^3/uL (4.0-11.0) 8.2 x10^3/uL (4.0-11.0) Red Blood Count 4.72 x10^6/uL (4.30-5.70) 4.49 x10^6/uL (4.30-5.70) Hemoglobin 13.5 g/dL (13.0-17.5) 12.5 g/dL (13.0-17.5) Hematocrit 40.9 % (39.0-53.0) 38.7 % (39.0-53.0) Mean Corpuscular Volume 87 fL (79-100) 86 fL (79-100) Mean Corpuscular Hemoglobin 29 pg (25-35) 28 pg (25-35) Mean Corpuscular Hemoglobin Concent 33 g/dL (31-37) 32 g/dL (31-37) Red Cell Distribution Width 15.8 % (11.5-14.5) 15.8 % (11.5-14.5) Platelet Count 326 x10^3/uL (140-400) 297 x10^3/uL (140-400) Prothrombin Time 12.4 SEC (11.7-14.0) Prothromb Time International Ratio 1.0 (0.8-1.1) Activated Partial Thromboplast Time 29 SEC (24-38) Sodium Level 137 mmol/L (136-145) Potassium Level 4.6 mmol/L (3.5-5.1) Chloride Level 100 mmol/L (98-107) Carbon Dioxide Level 30 mmol/L (21-32) Anion Gap 7 (6-14) Blood Urea Nitrogen 27 mg/dL (8-26) Creatinine 1.6 mg/dL (0.7-1.3) Estimated GFR (Cockcroft-Gault) 45.3 Glucose Level 117 mg/dL (70-99) Calcium Level 9.5 mg/dL (8.5-10.1) Troponin I High Sensitivity 9 ng/L (4-75) Glucose (Fingerstick) 134 mg/dL (70-99) 118 mg/dL (70-99) Heparin Anti-Xa Act, Unfractionated < 0.10 IU/mL (0.30-0.70) Test 10/20/21 09:25 10/20/21 11:43 Heparin Anti-Xa Act, Unfractionated 0.33 IU/mL (0.30-0.70) Glucose (Fingerstick) 114 mg/dL (70-99) Laboratory Tests Test 10/19/21 19:01 10/19/21 23:41 10/20/21 03:45 10/20/21 08:00 White Blood Count 9.3 x10^3/uL (4.0-11.0) 8.2 x10^3/uL (4.0-11.0) Red Blood Count 4.72 x10^6/uL (4.30-5.70) 4.49 x10^6/uL (4.30-5.70) Hemoglobin 13.5 g/dL (13.0-17.5) 12.5 g/dL (13.0-17.5) Hematocrit 40.9 % (39.0-53.0) 38.7 % (39.0-53.0) Mean Corpuscular Volume 87 fL (79-100) 86 fL (79-100) Mean Corpuscular Hemoglobin 29 pg (25-35) 28 pg (25-35) Mean Corpuscular Hemoglobin Concent 33 g/dL (31-37) 32 g/dL (31-37) Red Cell Distribution Width 15.8 % (11.5-14.5) 15.8 % (11.5-14.5) Platelet Count 326 x10^3/uL (140-400) 297 x10^3/uL (140-400) Prothrombin Time 12.4 SEC (11.7-14.0) Prothromb Time International Ratio 1.0 (0.8-1.1) Activated Partial Thromboplast Time 29 SEC (24-38) Sodium Level 137 mmol/L (136-145) Potassium Level 4.6 mmol/L (3.5-5.1) Chloride Level 100 mmol/L (98-107) Carbon Dioxide Level 30 mmol/L (21-32) Anion Gap 7 (6-14) Blood Urea Nitrogen 27 mg/dL (8-26) Creatinine 1.6 mg/dL (0.7-1.3) Estimated GFR (Cockcroft-Gault) 45.3 Glucose Level 117 mg/dL (70-99) Calcium Level 9.5 mg/dL (8.5-10.1) Troponin I High Sensitivity 9 ng/L (4-75) Glucose (Fingerstick) 134 mg/dL (70-99) 118 mg/dL (70-99) Heparin Anti-Xa Act, Unfractionated < 0.10 IU/mL (0.30-0.70) Test 10/20/21 09:25 10/20/21 11:43 Heparin Anti-Xa Act, Unfractionated 0.33 IU/mL (0.30-0.70) Glucose (Fingerstick) 114 mg/dL (70-99) VTE Prophylaxis Ordered VTE Prophylaxis Devices: No VTE Pharmacological Prophylaxi: Yes Assessment/Plan Assessment/Plan Afib RVR acute disstolic CHF acute vasomotor neprhopathy improved morbid obese, BMI 64 Justifications for Admission Other Justification REDDY CHEN MD Oct 20, 2021 12:05
--- NOTE | 2021-10-20 14:11 | PDOC3 ---
Discharge Summary Visit Information Date of Admission: Oct 19, 2021 Date of Discharge: Oct 20, 2021 Final Diagnosis Afib RVR acute disstolic CHF acute vasomotor neprhopathy improved morbid obese, BMI 64 Brief Hospital Course Allergies Allergies Coded Allergies Type Severity Reaction Last Updated Verified meperidine Allergy Severe Shortness of Air 10/12/14 No Vital Signs Vital Signs Date Time Temp Pulse Resp B/P (MAP) Pulse Ox O2 Delivery O2 Flow Rate FiO2 10/20/21 12:25 75 116/54 10/20/21 10:50 97.6 20 95 Room Air 97.6 Lab Results Laboratory Tests Test 10/19/21 19:01 10/19/21 23:41 10/20/21 03:45 10/20/21 08:00 White Blood Count 9.3 x10^3/uL (4.0-11.0) 8.2 x10^3/uL (4.0-11.0) Red Blood Count 4.72 x10^6/uL (4.30-5.70) 4.49 x10^6/uL (4.30-5.70) Hemoglobin 13.5 g/dL (13.0-17.5) 12.5 g/dL (13.0-17.5) Hematocrit 40.9 % (39.0-53.0) 38.7 % (39.0-53.0) Mean Corpuscular Volume 87 fL (79-100) 86 fL (79-100) Mean Corpuscular Hemoglobin 29 pg (25-35) 28 pg (25-35) Mean Corpuscular Hemoglobin Concent 33 g/dL (31-37) 32 g/dL (31-37) Red Cell Distribution Width 15.8 % (11.5-14.5) 15.8 % (11.5-14.5) Platelet Count 326 x10^3/uL (140-400) 297 x10^3/uL (140-400) Prothrombin Time 12.4 SEC (11.7-14.0) Prothromb Time International Ratio 1.0 (0.8-1.1) Activated Partial Thromboplast Time 29 SEC (24-38) Sodium Level 137 mmol/L (136-145) Potassium Level 4.6 mmol/L (3.5-5.1) Chloride Level 100 mmol/L (98-107) Carbon Dioxide Level 30 mmol/L (21-32) Anion Gap 7 (6-14) Blood Urea Nitrogen 27 mg/dL (8-26) Creatinine 1.6 mg/dL (0.7-1.3) Estimated GFR (Cockcroft-Gault) 45.3 Glucose Level 117 mg/dL (70-99) Calcium Level 9.5 mg/dL (8.5-10.1) Troponin I High Sensitivity 9 ng/L (4-75) Glucose (Fingerstick) 134 mg/dL (70-99) 118 mg/dL (70-99) Heparin Anti-Xa Act, Unfractionated < 0.10 IU/mL (0.30-0.70) Test 10/20/21 09:25 10/20/21 11:43 Heparin Anti-Xa Act, Unfractionated 0.33 IU/mL (0.30-0.70) Sodium Level 137 mmol/L (136-145) Potassium Level 4.2 mmol/L (3.5-5.1) Chloride Level 101 mmol/L (98-107) Carbon Dioxide Level 29 mmol/L (21-32) Anion Gap 7 (6-14) Blood Urea Nitrogen 29 mg/dL (8-26) Creatinine 1.3 mg/dL (0.7-1.3) Estimated GFR (Cockcroft-Gault) 57.5 Glucose Level 129 mg/dL (70-99) Calcium Level 8.9 mg/dL (8.5-10.1) Glucose (Fingerstick) 114 mg/dL (70-99) Laboratory Tests Test 10/19/21 19:01 10/19/21 23:41 10/20/21 03:45 10/20/21 08:00 White Blood Count 9.3 x10^3/uL (4.0-11.0) 8.2 x10^3/uL (4.0-11.0) Red Blood Count 4.72 x10^6/uL (4.30-5.70) 4.49 x10^6/uL (4.30-5.70) Hemoglobin 13.5 g/dL (13.0-17.5) 12.5 g/dL (13.0-17.5) Hematocrit 40.9 % (39.0-53.0) 38.7 % (39.0-53.0) Mean Corpuscular Volume 87 fL (79-100) 86 fL (79-100) Mean Corpuscular Hemoglobin 29 pg (25-35) 28 pg (25-35) Mean Corpuscular Hemoglobin Concent 33 g/dL (31-37) 32 g/dL (31-37) Red Cell Distribution Width 15.8 % (11.5-14.5) 15.8 % (11.5-14.5) Platelet Count 326 x10^3/uL (140-400) 297 x10^3/uL (140-400) Prothrombin Time 12.4 SEC (11.7-14.0) Prothromb Time International Ratio 1.0 (0.8-1.1) Activated Partial Thromboplast Time 29 SEC (24-38) Sodium Level 137 mmol/L (136-145) Potassium Level 4.6 mmol/L (3.5-5.1) Chloride Level 100 mmol/L (98-107) Carbon Dioxide Level 30 mmol/L (21-32) Anion Gap 7 (6-14) Blood Urea Nitrogen 27 mg/dL (8-26) Creatinine 1.6 mg/dL (0.7-1.3) Estimated GFR (Cockcroft-Gault) 45.3 Glucose Level 117 mg/dL (70-99) Calcium Level 9.5 mg/dL (8.5-10.1) Troponin I High Sensitivity 9 ng/L (4-75) Glucose (Fingerstick) 134 mg/dL (70-99) 118 mg/dL (70-99) Heparin Anti-Xa Act, Unfractionated < 0.10 IU/mL (0.30-0.70) Test 10/20/21 09:25 10/20/21 11:43 Heparin Anti-Xa Act, Unfractionated 0.33 IU/mL (0.30-0.70) Sodium Level 137 mmol/L (136-145) Potassium Level 4.2 mmol/L (3.5-5.1) Chloride Level 101 mmol/L (98-107) Carbon Dioxide Level 29 mmol/L (21-32) Anion Gap 7 (6-14) Blood Urea Nitrogen 29 mg/dL (8-26) Creatinine 1.3 mg/dL (0.7-1.3) Estimated GFR (Cockcroft-Gault) 57.5 Glucose Level 129 mg/dL (70-99) Calcium Level 8.9 mg/dL (8.5-10.1) Glucose (Fingerstick) 114 mg/dL (70-99) Brief Hospital Course Mr. Porter is a 56 old admit with palpitations, AFIB RVR, cardizem gtt, reverted to sinus resume home meds, alread on flecanide, follows at , should follow Discharge Information Condition at Discharge: Improved Follow Up: Weeks Disposition/Orders: D/C to Home Scheduled Albuterol Sulfate (Proventil Hfa Inhaler) 6.7 Gm Hfa.aer.ad, 2 PUFF IH QID, #1 Ref 3 (Reported) Entered as Reported by: SHANTELL JOHNSON on 10/12/14 1015 Last Action: Reviewed on 10/20/21748 by ZANE LIN Ascorbic Acid (Vitamin C) 500 Mg Capsule, 1,000 MG PO DAILY for , (Reported) Entered as Reported by: Josh Rothman on 11/01/201516 Last Action: Reviewed on 10/20/21748 by ZANE LIN Aspirin (Aspirin) 325 Mg Tablet, 1 TAB PO DAILY for , #30 Ref 5 (Reported) Entered as Reported by: BHARAT DAN RN on 02/07/21 1246 Last Action: Continued on 10/20/211141 by REDDY CHEN Colchicine (Colchicine) 0.6 Mg Tablet, 0.6 MG PO DAILY for , (Reported) Entered as Reported by: Josh Rothman on 11/01/201516 Last Action: Continued on 10/20/211141 by REDDY CHEN Cyanocobalamin (Vitamin B-12) (B-12) 500 Mcg Tablet, 500 MCG PO DAILY for , (Reported) Entered as Reported by: Josh Rothman on 11/01/201516 Last Action: Reviewed on 10/20/21748 by ZANE LIN Flecainide Acetate (Flecainide Acetate) 100 Mg Tablet, 100 MG PO BID for , (Reported) Entered as Reported by: Josh Rothman on 11/01/201516 Last Action: Converted on 10/20/211141 by REDDY CHEN Levothyroxine Sodium (Euthyrox) 100 Mcg Tablet, 100 MCG PO DAILYAC for , (Reported) Entered as Reported by: Josh Rothman on 11/01/201516 Last Action: Continued on 10/20/211141 by REDDY CHEN Lisinopril (Lisinopril) 10 Mg Tablet, 1 TAB PO DAILY for HTN for 90 Days, #90 Prescribed by: JACLYN CLEMENTS MD on 05/30/19 1311 Last Action: Continued on 10/20/211141 by REDDY CHEN Meloxicam (Meloxicam) 7.5 Mg Tablet, 7.5 MG PO DAILY for , (Reported) Entered as Reported by: Josh Rothman on 11/01/201516 Last Action: Continued on 10/20/211141 by REDDY CHEN Metformin Hcl (Metformin Hcl) 850 Mg Tablet, 850 MG PO BID for ANTI-DIABETIC, R ef 0 (Reported) Entered as Reported by: Josh Rothman on 11/01/201516 Last Action: Continued on 10/20/211141 by REDDY CHEN Metoprolol Tartrate (Metoprolol Tartrate) 50 Mg Tablet, 50 MG PO BID for FOR HYPERTENSION, #60 Ref 0 (Reported) Entered as Reported by: Josh Rothman on 11/01/201516 Last Action: Continued on 10/20/211141 by REDDY CHEN Omeprazole (Omeprazole) 20 Mg Capsule.dr, 20 MG PO DAILY for , (Reported) Entered as Reported by: Josh Rothman on 11/01/201516 Last Action: Reviewed on 10/20/21 07 by ZANE LIN Simvastatin (Simvastatin) 20 Mg Tablet, 20 MG PO HS for , (Reported) Entered as Reported by: CONY MUNOZ RN on 11/18/18 3056 Last Action: Continued on 10/20/211141 by REDDY CHEN Tamsulosin Hcl (Flomax) 0.4 Mg Cap.er.24h, 0.4 MG PO DAILY for , (Reported) Entered as Reported by: Josh Rothman on 11/01/201516 Last Action: Continued on 10/20/211141 by REDDY CHEN Vitamin D3/Vitamin K2 (D3 + K2 Dots 1,000 Units Tab) 1 Each Tab.rapdis, 1,000 TAB PO DAILY for for 30 Days, Ref 0 (Reported) Entered as Reported by: Josh Rothman on 11/01/201516 Last Action: Reviewed on 10/20/21748 by ZANE LIN Scheduled PRN Albuterol Sulfate (Albuterol Sulfate Conc Neb Soln) 2.5 Mg/0.5 Ml Vial.neb, 2.5 MG NEB PRN Q8HRS PRN for SHORTNESS OF BREATH, Ref 0 (Reported) Entered as Reported by: Josh Rothman on 11/01/201516 Last Action: Reviewed on 10/20/21748 by ZANE LIN Albuterol Sulfate (Proair Hfa Inhaler) 8.5 Gm Hfa.aer.ad, 2 PUFF IH PRN Q4-6HRS PRN for wheezing for 21 Days, #1 Ref 0 (Reported) Entered as Reported by: Josh Rothman on 11/01/201516 Last Action: HELD on 10/20/211141 by REDDY CHEN Fluticasone Propion/Salmeterol (Fluticasone-Salmeterol 250-50) 1 Each Blst.w.dev, 1 EACH IH PRN Q12HR PRN for SHORTNESS OF BREATH, (Reported) Entered as Reported by: Josh Rothman on 11/01/201516 Last Action: Reviewed on 10/20/21748 by ZANE LIN Furosemide (Furosemide) 20 Mg Tablet, 20 MG PO DAILY PRN for swelling, (Reported) take 1-2 tabs a day as needed for swelling Entered as Reported by: CONY MUNOZ, RN on 11/18/18 0537 Last Action: Continued on 10/20/211141 by REDDY CHEN Patient Instructions Patient Instructions A/D same day > 32 minutes total time Justicifation of Admission Dx: Justifications for Admission: Justification of Admission Dx: N/A REDDY CHEN MD Oct 20, 2021 14:11
[2021-10-20] MEDS ORDERED: metFORMIN 850 MG TABLET PO SCH (17:00)
[2021-10-20] MEDS ORDERED: SIMVASTATIN 20 MG TABLET PO SCH (21:00)
[2021-10-21] MEDS ORDERED: LEVOTHYROXINE 100 MCG TABLET PO SCH (06:00)
== END 2021-10-20 14:30 | disposition home or self-care (01) | DRG 308 ==
LOC: ER 17:59 → 6 SOUTH 20:22
PROVIDERS: ADMIT Student in an Organized Health Care Education/Training Program; ATTEND Student in an Organized Health Care Education/Training Program
DX: I48.0 Paroxysmal atrial fibrillation (principal); N17.0 Acute kidney failure with tubular necrosis; I50.31 Acute diastolic (congestive) heart failure; Z68.44 Body mass index [BMI] 60.0-69.9, adult; I48.92 Unspecified atrial flutter; I11.0 Hypertensive heart disease with heart failure; E11.9 Type 2 diabetes mellitus without complications; E66.01 Morbid (severe) obesity due to excess calories; K21.9 Gastro-esophageal reflux disease without esophagitis; M19.90 Unspecified osteoarthritis, unspecified site; F41.9 Anxiety disorder, unspecified; E78.00 Pure hypercholesterolemia, unspecified; E78.5 Hyperlipidemia, unspecified; E89.0 Postprocedural hypothyroidism; J45.909 Unspecified asthma, uncomplicated; Z82.49 Family history of ischemic heart disease and other diseases of the circulatory system; Z83.3 Family history of diabetes mellitus; Z85.46 Personal history of malignant neoplasm of prostate; Z87.891 Personal history of nicotine dependence; Z90.49 Acquired absence of other specified parts of digestive tract; Z88.8 Allergy status to other drugs, medicaments and biological substances
CPT/HCPCS: 36415; 71045; 80048; 82962; 84484; 85027; 85520; 85610; 85730; 96374; 96375; 96376; J1644; J3490; J7060; 99291-25; G0378

== ENCOUNTER 2021-10-22 00:20 | Emergency (ER) | payer OTHER, MEDICAID ==
[~2021-10-22] VITALS: Ht 172.7 cm; Wt 184.1 kg
[2021-10-22] MEDS ORDERED: MORPHINE SULFATE 4 MG/ML INJ. IV/SQ PRN (01:00)
[2021-10-22 01:16] LABS: BASO # 0.1 x10^3/uL (0.0-0.2); BASO % 1 % (0-3); EOS # 0.7 x10^3/uL (0.0-0.7); EOS % 11 % (0-3); HEMATOCRIT 38.9 % (39.0-53.0); HEMOGLOBIN 12.9 g/dL (13.0-17.5); LYMPH % 15 % (24-48); MEAN CORPUSCULAR HEMOGLOBIN 29 pg (25-35); MEAN CORPUSCULAR HGB CONC 33 g/dL (31-37); MEAN CORPUSCULAR VOLUME 87 fL (79-100); MONO # 0.4 x10^3/uL (0.0-1.1); MONO % 7 % (0-9); NEUT # 4.5 x10^3/uL (1.8-7.7); NEUT % 67 % (31-73); PLATELET COUNT 307 x10^3/uL (140-400); RED CELL DISTRIBUTION WIDTH 15.7 % (11.5-14.5); WHITE BLOOD COUNT 6.7 x10^3/uL (4.0-11.0)
[2021-10-22 01:24] LABS: PROTHROMBIN TIME PATIENT 12.7 SEC (11.7-14.0)
[2021-10-22 01:27] LABS: CALCIUM 9.2 mg/dL (8.5-10.1); CREATININE 1.8 mg/dL (0.7-1.3); GFR 39.5; POTASSIUM 4.4 mmol/L (3.5-5.1)
[2021-10-22 01:33] LABS: ALBUMIN 3.2 g/dL (3.4-5.0); ALBUMIN/GLOBULIN RATIO 0.7 (1.0-1.7); TOTAL BILIRUBIN 0.2 mg/dL (0.2-1.0); TOTAL PROTEIN 7.5 g/dL (6.4-8.2)
--- NOTE | 2021-10-22 01:43 | RAD ---
EXAM: AP View of the chest DATE: 10/22/2021 1:06 AM INDICATION: Reason: palpitations / Spl. Instructions: / History: COMPARISON: 10/19/2021 FINDINGS/ IMPRESSION: Moderate cardiomegaly. Aorta is tortuous. Bilateral perihilar and lung base airspace opacities likely consolidative process or pneumonia. Pulmonary edema or atelectasis could also have this appearance. Trace pleural effusions. No pneumothorax. Electronically signed by: Deion Parker MD (10/22/2021 1:41 AM) JANAE
[2021-10-22 01:48] LABS: AMPHETAMINE/METHAMPHETAMINE NEG (NEG); BARBITURATES NEG (NEG); BENZODIAZEPINES NEG (NEG); CANNABINOIDS NEG (NEG); COCAINE NEG (NEG); METHADONE NEG (NEG); OPIATES NEG (NEG); PHENCYCLIDINE NEG (NEG)
[2021-10-22 01:56] LABS: BACTERIA,URINE 0 /HPF (0-FEW); HYALINE CASTS, URINE FEW /HPF; RBC,URINE 0 /HPF (0-2)
[2021-10-22 03:26] VITALS: BP 129/64
--- NOTE | 2021-10-22 03:32 | PHYS DOC ---
Past Medical History Past Medical History: A-Fib, Anxiety, Cancer, Diabetes-Type II, High Cholesterol Additional Past Medical Histor: PROSTATE CA,A-FIB/RVR, SVT Past Surgical History: Other Additional Past Surgical Histo: thyroidectomy, arm repair Smoking Status: Never Smoker Alcohol Use: None Drug Use: None General Adult EDM: Chief Complaint: Palpitations HPI: HPI: Patient is a 56 year old male who presents with palpitations. Onset this evening. However he was recently seen in the emergency department for the same issue. He has a history of atrial fibrillation. He is on a beta-choco and flecainide. Did not miss any of his home medications. No chest pain or shortness of breath. No vomiting or diarrhea. Already sees a wheelage clerk for this issue. Review of Systems: Review of Systems: Constitutional: Denies fever or chills. [] Eyes: Denies change in visual acuity. [] HENT: Denies nasal congestion or sore throat. [] Respiratory: Denies cough or shortness of breath. [] Cardiovascular: Denies chest pain or edema. Positive for palpitation GI: Denies abdominal pain, nausea, vomiting, bloody stools or diarrhea. [] : Denies dysuria. [] Musculoskeletal: Denies back pain or joint pain. [] Integument: Denies rash. [] Neurologic: Denies headache, focal weakness or sensory changes. [] Endocrine: Denies polyuria or polydipsia. [] Lymphatic: Denies swollen glands. [] Psychiatric: Denies depression or anxiety. [] Heart Score: C/O Chest Pain: No Risk Factors: Risk Factors: DM, Current or recent (<one month) smoker, HTN, HLP, family history of CAD, obesity. Risk Scores: Score 0 - 3: 2.5% MACE over next 6 weeks - Discharge Home Score 4 - 6: 20.3% MACE over next 6 weeks - Admit for Clinical Observation Score 7 - 10: 72.7% MACE over next 6 weeks - Early Invasive Strategies Current Medications: Current Medications Medications (Trade) Dose Ordered Sig/Jessy Start Time Stop Time Status Last Admin Dose Admin Diltiazem HCl (Cardizem Iv Push) 10 mg 1X ONCE 10/22/21 03:15 10/22/21 03:23 DC 10/22/21 03:18 10 MG Morphine Sulfate (Morphine Sulfate) 4 mg PRN Q15MIN PRN 10/22/21 01:00 10/23/21 00:59 Allergies: Allergies: Allergies Coded Allergies Type Severity Reaction Last Updated Verified meperidine Allergy Severe Shortness of Air 10/22/21 No Physical Exam: PE: Constitutional: Well developed, well nourished, no acute distress, non-toxic appearance. [] HENT: Normocephalic, atraumatic, bilateral external ears normal, oropharynx moist, no oral exudates, nose normal. [] Eyes: PERRLA, EOMI, conjunctiva normal, no discharge. [] Neck: Normal range of motion, no tenderness, supple, no stridor. [] Cardiovascular:Heart rate regular rhythm, no murmur [] Lungs & Thorax: Bilateral breath sounds clear to auscultation [] Abdomen: Bowel sounds normal, soft, no tenderness, no masses, no pulsatile masses. [] Skin: Warm, dry, no erythema, no rash. [] Back: No tenderness, no CVA tenderness. [] Extremities: No tenderness, no cyanosis, no clubbing, ROM intact, no edema. [] Neurologic: Alert and oriented X 3, normal motor function, normal sensory function, no focal deficits noted. [] Psychologic: Affect normal, judgement normal, mood normal. [] Current Patient Data: Labs: Laboratory Tests Test 10/22/21 01:08 10/22/21 01:34 White Blood Count 6.7 x10^3/uL (4.0-11.0) Red Blood Count 4.50 x10^6/uL (4.30-5.70) Hemoglobin 12.9 g/dL (13.0-17.5) L Hematocrit 38.9 % (39.0-53.0) L Mean Corpuscular Volume 87 fL (79-100) Mean Corpuscular Hemoglobin 29 pg (25-35) Mean Corpuscular Hemoglobin Concent 33 g/dL (31-37) Red Cell Distribution Width 15.7 % (11.5-14.5) H Platelet Count 307 x10^3/uL (140-400) Neutrophils (%) (Auto) 67 % (31-73) Lymphocytes (%) (Auto) 15 % (24-48) L Monocytes (%) (Auto) 7 % (0-9) Eosinophils (%) (Auto) 11 % (0-3) H Basophils (%) (Auto) 1 % (0-3) Neutrophils # (Auto) 4.5 x10^3/uL (1.8-7.7) Lymphocytes # (Auto) 1.0 x10^3/uL (1.0-4.8) Monocytes # (Auto) 0.4 x10^3/uL (0.0-1.1) Eosinophils # (Auto) 0.7 x10^3/uL (0.0-0.7) Basophils # (Auto) 0.1 x10^3/uL (0.0-0.2) Prothrombin Time 12.7 SEC (11.7-14.0) Prothrombin Time INR 1.0 (0.8-1.1) Activated Partial Thromboplast Time 25 SEC (24-38) Sodium Level 140 mmol/L (136-145) Potassium Level 4.4 mmol/L (3.5-5.1) Chloride Level 103 mmol/L (98-107) Carbon Dioxide Level 26 mmol/L (21-32) Anion Gap 11 (6-14) Blood Urea Nitrogen 24 mg/dL (8-26) Creatinine 1.8 mg/dL (0.7-1.3) H Estimated GFR (Cockcroft-Gault) 39.5 BUN/Creatinine Ratio 13 (6-20) Glucose Level 127 mg/dL (70-99) H Calcium Level 9.2 mg/dL (8.5-10.1) Magnesium Level 2.0 mg/dL (1.8-2.4) Total Bilirubin 0.2 mg/dL (0.2-1.0) Aspartate Amino Transferase (AST) 27 U/L (15-37) Alanine Aminotransferase (ALT) 51 U/L (16-63) Alkaline Phosphatase 84 U/L (46-116) Troponin I High Sensitivity 5 ng/L (4-75) TM-Osw-Z-Type Natriuretic Peptide 120 pg/mL (0-124) Total Protein 7.5 g/dL (6.4-8.2) Albumin 3.2 g/dL (3.4-5.0) L Albumin/Globulin Ratio 0.7 (1.0-1.7) L Thyroid Stimulating Hormone (TSH) 8.105 uIU/mL (0.358-3.74) H Urine Collection Type Unknown Urine Color (Auto) Yellow Urine Turbidity Clear Urine pH (Auto) 5.5 (<5.0-8.0) Urine Specific [place] 1.034 (1.000-1.030) Urine Protein (Auto) 50 mg/dL (Negative) Urine Glucose (Auto)(UA) Negative mg/dL (Negative) Urine Ketones (Auto) 10 mg/dL (Negative) Urine Blood (Auto) Negative (Negative) Urine Nitrite Negative (Negative) Urine Bilirubin (Auto) Negative (Negative) Urine Urobilinogen (Auto) 2 mg/dL (Normal) Urine Leukocyte Esterase (Auto) Negative (Negative) Urine RBC 0 /HPF (0-2) Urine WBC 1-4 /HPF (0-4) Urine Squamous Epithelial Cells Few /LPF Urine Bacteria 0 /HPF (0-FEW) Urine Hyaline Casts Few /HPF Urine Mucus Mod /LPF Urine Opiates Screen Neg (NEG) Urine Methadone Screen Neg (NEG) Urine Barbiturates Neg (NEG) Urine Phencyclidine Screen Neg (NEG) Urine Amphetamine/Methamphetamine Neg (NEG) Urine Benzodiazepines Screen Neg (NEG) Urine Cocaine Screen Neg (NEG) Urine Cannabinoids Screen Neg (NEG) Urine Ethyl Alcohol Neg (NEG) Laboratory Tests 10/22/21 01:08 Laboratory Tests 10/22/21 01:08 Vital Signs: Vital Signs Date Time Temp Pulse Resp B/P (MAP) Pulse Ox O2 Delivery O2 Flow Rate FiO2 10/22/21 03:18 116 102/54 10/22/21 01:56 22 92 Room Air 10/22/21 00:24 97.8 97.8 EKG: EKG: EKG on arrival shows a heart rate of 118 with atrial fibrillation versus atrial flutter with no obvious ST changes or T wave inversions. EKG at time of discharge shows normal sinus rhythm rate of [address] changes or T wave inversions [] Radiology/Procedures: Radiology/Procedures: [] Course & Med Decision Making: Course & Med Decision Making Pertinent Labs and Imaging studies reviewed. (See chart for details) Patient's heart rate converted to normal sinus rhythm after being given Cardizem. He already is on appropriate medications and has follow-up. I also informed him of his elevated TSH for which he needs follow-up with his PCP. Christiano Disclaimer: Dragjosef Disclaimer: This electronic medical record was generated, in whole or in part, using a voice recognition dictation system. Departure Departure Impression: Primary Impression: Atrial fibrillation with RVR Disposition: HOME / SELF CARE / HOMELESS Condition: IMPROVED Referrals: LETICIA MACDONALD MD (PCP) Patient Instructions: Atrial Fibrillation, [id number] Additional Instructions: Your TSH is elevated. This needs to be followed up with your primary care physician. YOSHI VICKERS MD Oct 22, 2021 03:32
--- NOTE | 2021-10-22 11:45 | EKG ---
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
--- NOTE | 2021-10-22 11:45 | EKG ---
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
== END 2021-10-22 03:48 | disposition home or self-care (01) ==
LOC: ER 00:20
DX: I48.20 Chronic atrial fibrillation, unspecified (principal); E11.9 Type 2 diabetes mellitus without complications; E78.00 Pure hypercholesterolemia, unspecified; Z88.1 Allergy status to other antibiotic agents
CPT/HCPCS: 36415; 71045; 80053; 80307; 81001; 83735; 83880; 84443; 84484; 85025; 85610; 85730; 93005; 96374; 99285; J3490

== ENCOUNTER 2021-11-14 10:32 | Emergency (ER) | payer OTHER, MEDICAID ==
[~2021-11-14] VITALS: Ht 172.7 cm; Wt 186.2 kg
--- NOTE | 2021-11-14 10:55 | PHYS DOC ---
Past Medical History Past Medical History: A-Fib, Anxiety, Cancer, Diabetes-Type II, High Cholesterol Additional Past Medical Histor: PROSTATE CA,A-FIB/RVR, SVT Past Surgical History: Other Additional Past Surgical Histo: thyroidectomy, arm repair Smoking Status: Never Smoker Alcohol Use: None Drug Use: None Adult General Chief Complaint Chief Complaint: Palpitations HPI HPI Patient is a 56 year old male presenting to the emergency department for ev aluation of sudden onset palpitations with tachycardia that he noted at 630 this morning when he woke up. Patient denies any chest pain shortness of breath diaphoresis nausea vomiting or other systemic symptoms but he says he has a history of atrial fibrillation and he has been referred to Dr. Wilson at [facility]. He says Dr. Ruth referred him there. 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 Patient says that nothing has been set up at this time and he is not on any blood thinners. He does take flecainide and metoprolol and lisinopril. He says that he took all of his medications this morning. He says that he has never required electrical cardioversion and usually cardiovert's with Cardizem. It appears that he was admitted in October for a possible atrial flutter versus fibrillation event and converted after receiving Cardizem. He is in no acute distress with normal vital signs other than tachycardia noted. Review of Systems Review of Systems Constitutional: Denies fever or chills [] Eyes: Denies change in visual acuity, redness, or eye pain [] HENT: Denies nasal congestion or sore throat [] Respiratory: Denies cough or shortness of breath [] Cardiovascular: Positive palpitations GI: Denies abdominal pain, nausea, vomiting, bloody stools or diarrhea [] : Denies dysuria or hematuria [] Musculoskeletal: Denies back pain or joint pain [] Integument: Denies rash or skin lesions [] Neurologic: Denies headache, focal weakness or sensory changes [] All other systems were reviewed and found to be within normal limits, except as documented in this note. Current Medications Current Medications Current Medications Medications (Trade) Dose Ordered Sig/Jessy Start Time Stop Time Status Last Admin Dose Admin Diltiazem HCl (Cardizem Iv Push) 15 mg 1X ONCE 5/4/22 11:15 11/14/21 11:16 DC 11/14/21 11:18 15 MG Sodium Chloride 1,000 ml @ 1,000 mls/hr 1X ONCE 11/14/21 11:00 11/14/21 11:59 DC 11/14/21 10:57 1,000 MLS/HR Allergies Allergies Allergies Coded Allergies Type Severity Reaction Last Updated Verified meperidine Allergy Severe Shortness of Air 11/14/21 No Physical Exam Physical Exam Constitutional: Well developed, well nourished, no acute distress, non-toxic appearance. [] HENT: Normocephalic, atraumatic, bilateral external ears normal, oropharynx moist, no oral exudates, nose normal. [] Eyes: PERRLA, EOMI, conjunctiva normal, no discharge. [] Neck: Normal range of motion, no tenderness, supple, no stridor. [] Cardiovascular:Heart rate regular rhythm but tachycardic, no murmur [] Lungs & Thorax: Bilateral breath sounds clear to auscultation [] Abdomen: Bowel sounds normal, soft, no tenderness, no masses, no pulsatile masses. [] Skin: Warm, dry, no erythema, no rash. [] Back: No tenderness, no CVA tenderness. [] Extremities: No tenderness, no cyanosis, no clubbing, ROM intact, no edema. [] Neurologic: Alert and oriented X 3, normal motor function, normal sensory function, no focal deficits noted. [] Psychologic: Affect normal, judgement normal, mood normal. [] Current Patient Data Vital Signs Vital Signs Date Time Temp Pulse Resp B/P (MAP) Pulse Ox O2 Delivery O2 Flow Rate FiO2 11/14/21 11:18 107 102/60 11/14/21 10:39 98.1 16 96 98.1 Lab Values Laboratory Tests Test 11/14/21 10:45 White Blood Count 6.9 x10^3/uL (4.0-11.0) Red Blood Count 4.73 x10^6/uL (4.30-5.70) Hemoglobin 13.2 g/dL (13.0-17.5) Hematocrit 40.3 % (39.0-53.0) Mean Corpuscular Volume 85 fL (79-100) Mean Corpuscular Hemoglobin 28 pg (25-35) Mean Corpuscular Hemoglobin Concent 33 g/dL (31-37) Red Cell Distribution Width 16.1 % (11.5-14.5) H Platelet Count 287 x10^3/uL (140-400) Neutrophils (%) (Auto) 73 % (31-73) Lymphocytes (%) (Auto) 12 % (24-48) L Monocytes (%) (Auto) 6 % (0-9) Eosinophils (%) (Auto) 9 % (0-3) H Basophils (%) (Auto) 1 % (0-3) Neutrophils # (Auto) 5.0 x10^3/uL (1.8-7.7) Lymphocytes # (Auto) 0.8 x10^3/uL (1.0-4.8) L Monocytes # (Auto) 0.4 x10^3/uL (0.0-1.1) Eosinophils # (Auto) 0.6 x10^3/uL (0.0-0.7) Basophils # (Auto) 0.1 x10^3/uL (0.0-0.2) Sodium Level 139 mmol/L (136-145) Potassium Level 4.3 mmol/L (3.5-5.1) Chloride Level 101 mmol/L (98-107) Carbon Dioxide Level 29 mmol/L (21-32) Anion Gap 9 (6-14) Blood Urea Nitrogen 23 mg/dL (8-26) Creatinine 1.5 mg/dL (0.7-1.3) H Estimated GFR (Cockcroft-Gault) 48.8 BUN/Creatinine Ratio 15 (6-20) Glucose Level 128 mg/dL (70-99) H Calcium Level 9.1 mg/dL (8.5-10.1) Total Bilirubin 0.2 mg/dL (0.2-1.0) Aspartate Amino Transferase (AST) 23 U/L (15-37) Alanine Aminotransferase (ALT) 35 U/L (16-63) Alkaline Phosphatase 97 U/L (46-116) Troponin I High Sensitivity 7 ng/L (4-75) AP-Kft-A-Type Natriuretic Peptide 107 pg/mL (0-124) Total Protein 7.1 g/dL (6.4-8.2) Albumin 3.3 g/dL (3.4-5.0) L Albumin/Globulin Ratio 0.9 (1.0-1.7) L Thyroid Stimulating Hormone (TSH) 6.665 uIU/mL (0.358-3.74) H Laboratory Tests 11/14/21 10:45 Laboratory Tests 11/14/21 10:45 EKG EKG Tachycardic rhythm at 122 bpm with leftward axis no ST elevation or depression with normal T waves. No P waves are identified and the rhythm appears to be normal. My suspicion is that this is atrial flutter but certainly could be a sinus tachycardia or fibrillation Radiology/Procedures Radiology/Procedures [] Course & Med Decision Making Course & Med Decision Making I will check labs and attempt to give a 15 mg bolus of Cardizem and observe closely. Patient's heart rate slowed down to 105 after the first 50 mg bolus and I could still not see P waves on the monitor so I gave him an additional 15 mg and then he slowed down to 75 bpm and I can now see P waves on EKG and monitor. His blo od pressure did transiently go down but it went back up to 112/55 and patient says he feels well and is not dizzy and he would like to go home as he has multiple errands to run today. Patient was told to take it easy and to sit down if he also feels dizzy given he received a Cardizem. 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 Patient aware and agreeable with plan and verbalized understanding of the above instructions. Dragon Disclaimer Dragon Disclaimer This electronic medical record was generated, in whole or in part, using a voice recognition dictation system. Departure Departure Impression: Primary Impression: Atrial flutter with rapid ventricular response Disposition: HOME / SELF CARE / HOMELESS Condition: STABLE Referrals: LETICIA MACDONALD MD (PCP) Patient Instructions: Atrial Flutter EMEKA LOAIZA DO November 14, 2021 10:55
[2021-11-14 10:59] LABS: BASO # 0.1 x10^3/uL (0.0-0.2); BASO % 1 % (0-3); EOS # 0.6 x10^3/uL (0.0-0.7); EOS % 9 % (0-3); HEMATOCRIT 40.3 % (39.0-53.0); HEMOGLOBIN 13.2 g/dL (13.0-17.5); LYMPH # 0.8 x10^3/uL (1.0-4.8); LYMPH % 12 % (24-48); MEAN CORPUSCULAR HEMOGLOBIN 28 pg (25-35); MEAN CORPUSCULAR HGB CONC 33 g/dL (31-37); MEAN CORPUSCULAR VOLUME 85 fL (79-100); MONO # 0.4 x10^3/uL (0.0-1.1); MONO % 6 % (0-9); NEUT % 73 % (31-73); PLATELET COUNT 287 x10^3/uL (140-400); RED BLOOD COUNT 4.73 x10^6/uL (4.30-5.70); RED CELL DISTRIBUTION WIDTH 16.1 % (11.5-14.5); WHITE BLOOD COUNT 6.9 x10^3/uL (4.0-11.0)
[2021-11-14] MEDS ORDERED: IV NORMAL SALINE 1000ML BAG 1,000 ML IV ONE (11:00)
[2021-11-14 11:16] LABS: CALCIUM 9.1 mg/dL (8.5-10.1); CREATININE 1.5 mg/dL (0.7-1.3); GFR 48.8; POTASSIUM 4.3 mmol/L (3.5-5.1)
[2021-11-14 11:22] LABS: ALBUMIN 3.3 g/dL (3.4-5.0); ALBUMIN/GLOBULIN RATIO 0.9 (1.0-1.7); TOTAL BILIRUBIN 0.2 mg/dL (0.2-1.0); TOTAL PROTEIN 7.1 g/dL (6.4-8.2)
[2021-11-14 11:31] VITALS: BP 111/54
--- NOTE | 2021-11-14 12:45 | RAD ---
EXAM: XR CHEST 1V 11/14/2021 10:53 AM CLINICAL INDICATION: Palpitations COMPARISON: Chest radiograph 10/22/2021 TECHNIQUE: AP upright view of the chest FINDINGS: The heart is normal in size. The lungs are adequately expanded. There are mild left basila r opacities along the cardiac apex. No pleural effusion or pneumothorax. No acute osseous abnormality . IMPRESSION: Mild left basilar opacities, likely atelectasis. Pneumonia not excluded. Electronically signed by: Geni Bergman MD (11/14/2021 12:42 PM) [id number]
--- NOTE | 2021-11-15 08:17 | EKG ---
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
--- NOTE | 2021-11-15 08:18 | EKG ---
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
--- NOTE | 2021-11-15 08:22 | EKG ---
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
== END 2021-11-14 12:39 | disposition home or self-care (01) ==
LOC: ER 10:32
DX: I48.92 Unspecified atrial flutter (principal); I48.91 Unspecified atrial fibrillation; E11.9 Type 2 diabetes mellitus without complications; E78.00 Pure hypercholesterolemia, unspecified; Z88.1 Allergy status to other antibiotic agents
CPT/HCPCS: 36415; 71045; 80053; 83880; 84443; 84484; 85025; 93005; 96361; 96374; 96376; 99285; J3490; J7030